=== PATIENT | male | born 1975 | race Caucasian/White ===

== ENCOUNTER 2018-05-27 15:11 | Outpatient (REF) | payer MEDICAID, SELFPAY ==
[2018-05-27 19:08] LABS: Abs Immature Grans 0.01 k/cumm (0.0-0.09); Absolute Basophil Count 0.04 k/cumm (0.0-0.2); Absolute Lymphocyte Count 0.39 k/cumm (1.2-3.4); Absolute Monocyte Count 0.97 k/cumm (0.11-0.7); Absolute Neutrophil Count 5.62 k/cumm (1.2-6.7); Basophils % 0.6; Eosinophils % 2.8; HCT 44.1 % (40.0-50.0); HGB 14.8 g/dL (13.5-17.5); Immature Grans % 0.1; Lymphocytes % 5.4; Mean Corp. HGB Concentration 33.6 g/dL (32.0-36.0); Mean Corpuscular Volume 86.5 fL (80-95); Monocytes % 13.4; Neutrophils % 77.7; Platelet Count 226 x1000/uL (130-400); RBC Distribution Width 13.8 % (11.8-14.1); White Blood Cell Count 7.23 k/cumm (4.4-10.8)
[2018-05-27 19:27] LABS: ALT 47 U/L (12-78); AST 51 U/L (15-37); Albumin 4.3 g/dL (3.4-5.0); Alkaline Phosphatase 124 U/L (46-116); Anion Gap 10.2 mmol/L (3-11); BUN 9 mg/dL (7-18); Bilirubin, Total 0.4 mg/dL (0.2-1.0); C-Reactive Protein 3.51 mg/dL (0.0-0.3); CO2 28.8 mmol/L (21.0-32.0); CREATININE 0.79 mg/dL (0.70-1.30); Calcium 9.4 mg/dL (8.5-10.1); Chloride 100 mmol/L (98-107); Glucose 96 mg/dL (70-100); Potassium 4.9 mmol/L (3.5-5.1); Sodium 139 mmol/L (136-145); TSH (W/Ref FT4) 0.92 uIU/mL (0.358-3.74); Total Protein 7.7 g/dL (6.4-8.2)
[2018-05-27 19:50] LABS: ESR 22 MM/HR (0-15)
[2018-05-30 11:45] LABS: Rheumatoid Factor <8 IU/mL (<12.5)
[2018-05-30 12:23] LABS: Lyme Ab w Rflx to Lyme Confirm Negative
[2018-05-31 00:03] LABS: Anaplasma phagocytophilum Negative (Negative); B. miyamotoi PCR Negative (Negative); Babesia divergens/MO-1 Negative (Negative); Babesia duncani Negative (Negative); Babesia microti Negative (Negative); Ehrlichia chaffeensis Negative (Negative); Ehrlichia ewingii/canis Negative (Negative); Ehrlichia muris eauclairensis Negative (Negative)
== END 2018-05-27 15:31 ==
LOC: NCHCN 15:11
PROVIDERS: PCP Family Medicine; Visit Provider Family Medicine
DX: R20.0 Anesthesia of skin (principal); R19.7 Diarrhea, unspecified; R50.9 Fever, unspecified; M25.50 Pain in unspecified joint; R20.2 Paresthesia of skin
CPT/HCPCS: 80053; 85652; 84443; 85025; 86140; 86431; 86618; 87798

== ENCOUNTER 2018-06-16 10:00 | Outpatient (CLI) | payer MEDICAID, SELFPAY ==
--- NOTE | 2018-06-16 09:45 | DI.RAD_ITS ---
SYMPTOMS/DIAGNOSIS: F/U INTEROSSEOUS GANGLION CYST IN TIBIA RIGHT KNEE: The study is compared with the prior exam of 01/19/18. A TKR is demonstrated. The prosthesis in excellent position. Again noted is the radiolucency identified in the lateral tibial plateau. There is no evidence bony expansion, destruction or periosteal new bone, and there has been no appreciable interval change.
== END 2018-06-16 10:20 ==
PROVIDERS: PCP Family Medicine; Visit Provider Physician Assistant
DX: M67.48 Ganglion, other site (principal); Z96.651 Presence of right artificial knee joint
CPT/HCPCS: 73562

== ENCOUNTER 2018-06-24 12:03 | Outpatient (CLI) | payer MEDICAID, SELFPAY ==
--- NOTE | 2018-06-24 12:27 | HPE_ITS ---
Assessment and Plan (1) Intraosseous ganglion: Current visit: Yes Status: Acute Plan: Discussed surgery including surgical technique, pertinent anatomy, recovery process, benefits and risks including but not limited to risk of infection, blood clot, damage to soft tissue/nerves/blood vessels with patient in detail. After discussion patient elects to continue to proceed with surgery. Patient had opportunity to have questions answered to his satisfaction. Patient will continue with his preoperative visits. He will contact office if any issues arise. Patient will be scheduled for excision of intraosseous ganglion cyst from the right proximal tibia followed by filling of the defect with Elsiian with Dr. Zepeda on 06/29/18. History of Present Illness Narrative: Mr. Pedraza is a 42-year-old male who presents to clinic for his preoperative visit for scheduled intraosseous ganglion cyst removal on right proximal tibia and insertion of Norian by Dr. Zepeda on 06/29/18. Patient has been having right sided knee pain for several months. Patient is status post right TKA done on 10/17/12, following the right TKA patient developed a cyst beneath the lateral aspect of his proximal tibial component in the summer 2017. Patient was diagnosed with intraosseous ganglion cyst of the lateral proximal tibial metaphysis on 01/19/[address] Zepeda. Patient had approximately 20 cc of typical ganglion fluid removed at that appointment. An MRI showed intraosseous cyst located in the proximal tibia beneath the lateral side of the tibial prosthetic. After cyst was drained by Dr. Zepeda patient redeveloped swelling and pain in the same area. Patient describes pain as being intermittent but is worse at night. He also feels discomfort over the area of the cyst with increased activity. 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 Patient takes Tylenol PM which helps to slightly alleviate nighttime pain. Patient denies any tingling. Patient denies any injury. Patient and Dr. Zepeda agreed to proceed with surgical intervention at this time for patient developed any collapse of the tibia or loosening of the TKA. Pertinent Surgical Information Denies past medical history of: stroke, cardiac issues, angina, COPD, sleep apnea, renal issues, liver issues, hepatitis, ulcers, bleeding disorders, seizures, migraines, depression, diabetes, autoimmune disorders, thyroid issues Denies prior complications from surgery or anesthesia. Review of Systems Constitutional Denies fever(s), Denies frequent falls and Denies headache(s) Eyes Denies change in vision ENT Denies otalgia, Denies headache(s), Denies epistaxis, Denies mouth pain, Denies nasal congestion, Reports nasal discharge (Chronic nasal discharge of clear fluid; denies any recent change) and Denies sore throat Cardiovascular Denies chest pain, Denies rapid heart rate, Denies irregular heart rhythm, Denies dyspnea, Denies dyspnea on exertion and Denies slow heart rate Respiratory Denies dyspnea, Denies dyspnea on exertion and Denies wheezing Gastrointestinal Denies abdominal pain, Denies melena, Denies hematochezia, Denies constipation, Denies diarrhea, Denies nausea and Denies vomiting Genitourinary Denies hematuria, Denies dysuria and Denies urinary urgency Musculoskeletal Reports as per HPI and Denies tingling Neurologic Denies frequent falls, Denies headache(s) and Denies tingling Psychiatric Reports anxiety and Denies depression Allergic/Immunologic Denies wheezing PFSH Family History Mother No problems noted. Father Tremor Anxiety Paternal Aunt Lung cancer Medical History Anxiety (Chronic) Intraosseous ganglion (Acute) SPIINAL STENOSIS CERVICAL REGION Asthma Gastroesophageal reflux disease Benign hypertension HYPERLIPIDEMIA HX TOBACCO USE DIVERTICULOSIS OF COLON Social History Smoking/Tobacco Use Status: Current every day Surgical History Replacement of total knee joint (10/18/11) Arthroplasty of knee Meds Home Medications Medication Instructions Recorded Confirmed Type clonidine HCl [Catapres] 0.1 mg PO HS 10/10/12 06/16/18 History losartan [Cozaar] 100 mg PO DAILY AM 10/10/12 06/16/18 History omeprazole 20 mg PO DAILY 10/10/12 06/16/18 History citalopram 40 mg PO DAILY 04/29/13 06/16/18 History clonazepam 0.5 mg PO BID PRN 05/03/13 06/16/18 History fluticasone [Flonase] 50 mcg NS DAILY spray 10/23/14 06/16/18 History levalbuterol tartrate [Xopenex Hfa] 90 mcg INHALATION Q6H PRN inhaler 10/23/14 06/16/18 History loratadine [Claritin] 10 mg PO DAILY tab-cap 10/23/14 06/16/18 History Allergies Allergy/AdvReac Type Severity Reaction Status Date / Time gabapentin Allergy Intermediate Psychosis Verified 06/24/18 12:53 lisinopril AdvReac Mild Cough Verified 06/24/18 12:53 Exam Const General: cooperative and no acute distress [facility] Head: normal to inspection, normocephalic and atraumatic Ears: external ears normal General nose exam: external nose normal and no nasal discharge Face and sinus: face symmetric Mouth: oral mucosae normal, lip normal, tongue normal and moist mucous membranes Teeth and gingiva: other (No upper teeth, bottom teeth have fair dentition ) Throat: posterior oropharynx normal Eyes General: appearance normal, both eyes and all related structures Pupils: PERRL EOM: EOM intact bilaterally Neck Neck: trachea midline Carotids: normal carotid upstroke Lymphatic: no lymphadenopathy noted Resp Effort & Inspection: normal respiratory effort and able to speak in complete sentences Auscultation: clear to auscultation bilaterally, no rales, no rhonchi and no wheezes Cardio Heart Sounds: S1 normal, S2 normal, no murmurs, no rubs and no other Pulses: radial pulses present bilaterally GI Palpation: soft, no hepatosplenomegaly and nontender Auscultation: normal bowel sounds Skin General skin exam: no rashes or lesions noted Extrem Other: Right knee examination: Skin is intact, well-healed surgical incisions present. No signs of ecchymosis, erythema or calor. Area of localized swelling at the anterior lateral aspect of his proximal tibia, area is noted to be approximately 5 cm x 3 cm. Slight tenderness is elicited with palpation over this area.
== END 2018-06-24 12:23 ==
PROVIDERS: PCP Family Medicine; Visit Provider Orthopaedic Surgery
DX: M67.462 Ganglion, left knee (principal); Z01.818 Encounter for other preprocedural examination
CPT/HCPCS: NC

== ENCOUNTER 2018-06-29 11:17 | Day surgery (SDC) | payer MEDICAID, SELFPAY ==
[2018-06-29 11:46] VITALS: BP 145/94; PULSE 82; RESP 16; TEMP 36.2; O2SAT 98
[2018-06-29] MEDS: Lactated Ringers 1,000 ML 80 ML IV (12:05)
--- NOTE | 2018-06-29 13:45 | GANGLION_PTH ---
PATIENT: Satish Pedraza LOC: [facility] U#:[id number] AGE/SX: 42/M ROOM: RE06/29/[address]: Yogesh Zepeda MD : [id number] BED: DIS: 06/29/2018 SPEC #: [id number] RECD: 06/29/18 16:26 STATUS: VENECIA REQ #: [id number] NICKY: 06/29/18 13:[address]: Yogesh Zepeda DEPT: Surgical Specimen RECD BY: Maranda Brand ENTERED: 06/29/18 16:28 SP TYPE: Ganglion OTHR DR: Rachel Montenegro V Tissues: 1 - GANGLION CYST Procedures: GROSS AND MICRO LEVEL 3 Comments: [id number]
--- NOTE | 2018-06-29 14:26 | DI.RAD_ITS ---
SYMPTOMS/DIAGNOSIS: INTRAOSSEOUS GANGLION RT TIBIA C-ARM FLUOROSCOPY: Fluoroscopy Time: 18 sec 1.08 mGy C-arm fluoroscopy was utilized by Dr. Zepeda. The patient reportedly has an intraosseous ganglion of the tibia. Hardcopy shows exposure of the area of the lateral tibial plateau and question with increased radiodensity presumably representing packing material at the operative site.
--- NOTE | 2018-06-29 14:45 | W.PM.DSUDISC ---
Discharge Plan Disposition Patient Disposition: HOME Condition: Good Discharge Details Reason For Visit: GANGLION CYST (R) Attending Provider: Yogesh Zepeda Primary Care Provider: Rachel Montenegro V Home Meds and New Rx's Prescriptions: New hydrocodone-acetaminophen 5-325 mg tablet 1 tab PO Q6H PRN (Reason: pain) Qty: 14 RF: 0 ibuprofen 800 mg tablet 800 mg PO TID Qty: 30 RF: 0 Continue loratadine [Claritin RediTabs] 10 MG tablet,disintegrating 10 mg PO DAILY PRNRF: 0 fluticasone [Flonase] 16 GM spray,suspension 50 mcg NS DAILY PRNRF: 0 levalbuterol tartrate [Xopenex HFA] 15 GM HFA aerosol inhaler 90 mcg Inhalation Q6H PRN RF: 0 clonidine HCl [Catapres] 0.1 MG tablet 0.1 mg PO HS RF: 0 losartan [Cozaar] 100 MG tablet 100 mg PO DAILY AM RF: 0 omeprazole 20 MG tablet,delayed release (DR/EC) 20 mg PO HS RF: 0 citalopram 40 MG tablet 40 mg PO HS RF: 0 clonazepam 0.5 MG tablet 0.5 mg PO BID PRNRF: 0 diphenhydramine-acetaminophen [Tylenol PM Extra Strength] 25-500 mg Tablet 2 PRNRF: 0 Discharge Instructions Additional Instructions: Crutches to walk. Partial weight bearing as tolerated to R leg. Elevate R leg on 1-2 pillows as much as possible for next 48 hours. Empty drain when full. Keep dressings and drain untouched until Wednesday. Go to 's office on Wednesday at 10 AM so he can remove the drain and check your incision. Apply ice over incision site 4 times/day for 1 hour each time. Take ibuprofen as prescribed 3 times/day for 10 days. Take hydrocodone only for breakthru pain, every 6 hours if needed. Equipment/Supplies: Partial Weight Bearing Crutches Activity:: Activity as Tolerated Remove Dressings/Wound Care:: Do Not Remove Shower/Bathe:: Cover Diet:: As Tolerated Discharge Orders Discharge Orders: Discharge Order (Routine); Ordered 06/29/18 Ordered By: Yogesh Zepeda DS: Diagnosis Discharge Diagnosis (1) Intraosseous ganglion: Start date: 06/29/18 Start time: 14:46 Status: Acute
[2018-06-29 14:56] VITALS: BP 148/118; PULSE 97; RESP 15; TEMP 36.7; O2SAT 94
[2018-06-29 15:01] VITALS: BP 155/108; PULSE 98; RESP 14; TEMP 36.7; O2SAT 94
[2018-06-29 15:06] VITALS: BP 133/93; PULSE 104; RESP 14; TEMP 36.7; O2SAT 94
[2018-06-29 15:22] VITALS: BP 130/88; PULSE 96; RESP 14; TEMP 36.7; O2SAT 94
[2018-06-29 15:55] VITALS: BP 139/100; PULSE 96; RESP 18; TEMP 36.6; O2SAT 95
[2018-06-29] MEDS: HYDROcodone 5/Acetaminophen 325 TAB PO (15:55)
--- NOTE | 2018-06-29 19:47 | ROE_ITS ---
DATE OF PROCEDURE: June 29, 2018 PREOPERATIVE DIAGNOSIS: Intraosseous ganglion cyst right tibia with extraosseous extension. POSTOPERATIVE DIAGNOSIS: Same. PROCEDURE: Excision of intraosseous ganglion cyst right tibia, filling the void in the bone with Nor melissa calcium phosphate bone substitute. SURGEON: Yogesh Zepeda M.D. SENIOR MARKET RESEARCH ANALYST: Evelina Linares PA-C ANESTHESIA: General. INDICATIONS: This is a 42-year-old white male, five years status post right total knee replacement. He was seen last spring and was noted to have developed a swelling in his anterior compartment of th e right proximal leg. Aspiration showed contents that looked like typical ganglion fluid. X-rays of his knee showed that, in fact, he had an intraosseous ganglion cyst that was in the lateral portion of the lateral tibial plateau. It was below the tibial component of the total knee replacement. The re did not appear to be any loosening or movement displacement of the tibial component. The patient had been advised at that time that he should have the intraosseous ganglion cyst removed and the resu ltant void in the bone filled with either bone graft or a bone graft substitute such as Norian. The patient was working through the summer and did not come back initially because the extraosseous porti on of the cyst did not recur and he had no pain. Several weeks ago he returned for follow-up because the extraosseous portion of the ganglion cyst had recurred and was now giving him pain. Once again, it was explained to him that after the intraosseous ganglion cyst was excised there would be a void beneath the lateral portion of his tibial component of a total knee replacement. This void needs to be filled to avoid future loosening of the tibial component. I did not feel that methylmethacrylate was a good choice for the void filler and his choices would be limited to either iliac crest bone gra fting or use of a bone graft substitute such as Norian calcium phosphate. Bone grafting would requir e a separate incision and harvesting bone from a remote site to fill in the defect. The patient did not want this and instead wished to have Norian injected to fill the void after the cyst was excised. The risks and complications of the procedure were explained to the patient in detail preoperatively . PROCEDURE: The patient was taken to the Operating Room on 06/29/18. He was placed supine on the ope rating table and a general anesthetic was administered. A proximal tourniquet was applied to the rig ht thigh and the right lower extremity was prepped from toes to tourniquet and draped free in the usu al sterile fashion. Under proximal tourniquet control, I made a separate straight lateral incision. There was a more than adequate skin bridge between his total knee scar and the new incision. The in cision was carried out to the flare of the tibial plateau laterally and then extended distally approx imately 5 inches. The incision was carried down through the subcu and then to the fascia. The fasci a was incised, revealing a quite extensive extraosseous ganglion cyst. It extended actually another inch distal to my incision. I tried to carefully dissect the sac of the ganglion cyst, freed it from the muscle of the anterolateral compartment, and traced it down to the lateral side of the tibial sh aft. The sac of the cyst was punctured in several places during the excision but after the ganglion fluid was removed, the sac was easily visualized and I was able to remove it with use of rongeur. After the extraosseous portion was excised, I was able to trace the ganglion cyst to the proximal lat eral tibia. There were two holes in the bone where the cyst had extruded. I inserted a curette thro ugh the holes and with the C-arm image intensifier I was able to confirm that the curette was, in fac t, in the bone and in the cyst. I then proceeded to use various curettes including angled curettes t o remove tissue from the lining of the cyst from its intraosseous position. I then irrigated the voi d in the bone with Betadine and saline solution. I then took 70% isopropyl alcohol, injected it into the void in the bone cyst, let it stay for 30 seconds, and then suctioned it out and irrigated it ag ain with saline solution to avoid damaging normal tissue. I then mixed Norian calcium phosphate bone void filler and injected it slowly into the void in the lateral proximal tibia. This was done with C-arm image intensification visualization and I could see the calcium phosphate filling the void. Af ter I had filled the void in the bone fairly completely, I took the Norian and put the remainder of t he Norian on a sponge, allowed it to firm up and harden so it was more like putty, and then used this to further pressurize the liquid Norian that was injected into the bone void. At this point, the wound margins were infiltrated with 0.5% Marcaine with epinephrine solution. A si lastic suction drain was placed in the depths of the wound and brought out through a separate stab wo und in the distal lateral leg. The fascia was closed with running interlocked #1 Vicryl suture mater ial. One gram of vancomycin powder was placed in the depth of the wound prior to closing the fascia. The subcu was approximated with interrupted #3-0 Vicryl sutures and the skin edges were approximate d with skin eun. Sterile dressings were applied of Xeroform gauze, sterile gauze 4x4s, ABD pads, and then wrapped with a 6-inch Darien bandage. The drain was connected to a small suction bulb. The t ourniquet was released. The patient tolerated the procedure well and was discharged to Recovery in g ood condition. The patient was later discharged home from the Day Surgery Unit when fully recovered from his general anesthesia. He and family were instructed by the Day Surgery staff on how to empty the suction bulb . He is to empty the bulb whenever it is full. He is to keep his dressings intact and dry until Sat ur. He is to return to Dr. Zepeda's office on Wednesday at 10:00 a.m. for drain removal and wound check. He is advised to use crutches to walk, partial weightbearing as tolerated to the right leg. He is instructed to try to elevate his right leg on one to two pillows as much as possible for the ne xt 48 hours. He was given a prescription for inflammation and swelling of ibuprofen 800 mg p.o. t.i. d. He was given a prescription for breakthrough pain of Percocet 5 mg/325 mg, 1 tablet every 6 hours as needed.
== END 2018-06-29 16:48 | disposition home or self-care (01) ==
PROVIDERS: PCP Family Medicine; Visit Provider Orthopaedic Surgery
PROC: (CPT 27638; principal; 2018-06-29 14:00)
DX: M67.461 Ganglion, right knee (principal); Z96.651 Presence of right artificial knee joint
CPT/HCPCS: 27638; 73590; 88304; E0114; J0131; J0690; J1100; J1885; J2250; J2405; J3010

== ENCOUNTER 2018-07-12 10:52 | Outpatient (CLI) | payer SELFPAY ==
--- NOTE | 2018-07-12 10:48 | DI.RAD_ITS ---
SYMPTOM/DIAGNOSIS: SURGERY FOLLOW UP RIGHT KNEE: Two views. Comparison 06/16/18 There are again seen post surgical changes of a right total knee replacement. No evidence of hardware failure seen. There is again seen a ganglion cystic lesion in the proximal tibia. Post surgical changes of packing of the ganglion cyst are again noted. There is some dense material seen in the space between the proximal tibia and fibula which may represent the packing material. No acute fracture or dislocation seen.
== END 2018-07-12 11:12 ==
PROVIDERS: PCP Family Medicine; Visit Provider Physician Assistant Surgical
DX: M67.48 Ganglion, other site (principal); Z98.890 Other specified postprocedural states; Z96.651 Presence of right artificial knee joint
CPT/HCPCS: 73560

== ENCOUNTER 2018-11-01 10:53 | Outpatient (CLI) | payer SELFPAY ==
--- NOTE | 2018-11-01 10:47 | DI.RAD_ITS ---
SYMPTOMS/DIAGNOSIS: F/U RT TIBIA PAIN RIGHT KNEE: Two views were obtained and show previously noted total knee joint replacement in position. No change in alignment in comparison with examination of 07/12/18. Note is made of cement packing of previously noted lucent region of the lateral tibial plateau with no change in alignment in comparison with the previous examination.
== END 2018-11-01 11:13 ==
PROVIDERS: PCP Family Medicine; Visit Provider Physician Assistant
DX: M79.661 Pain in right lower leg (principal); M25.561 Pain in right knee; Z96.651 Presence of right artificial knee joint
CPT/HCPCS: 73560

== ENCOUNTER 2019-02-08 11:21 | Outpatient (CLI) | payer OTHER, SELFPAY ==
--- NOTE | 2019-02-08 08:53 | DI.RAD_ITS ---
SYMPTOM/DIAGNOSIS: S/P INTRAOSSEOUS GANGLION CYST REMOVAL RIGHT KNEE: The patient is status post TKA. When compared with the prior examination of 11/01/18, there has been no interval change. The prosthesis remains in good position. Surrounding bone intact with note again made of packing at the site of an intraosseous ganglion involving the lateral portion of the proximal metaphysis of the tibia. No interval change is demonstrated.
== END 2019-02-08 11:41 ==
PROVIDERS: PCP Family Medicine; Visit Provider Physician Assistant
DX: M25.561 Pain in right knee (principal); Z96.651 Presence of right artificial knee joint; M67.48 Ganglion, other site
CPT/HCPCS: 73560

== ENCOUNTER 2019-02-20 13:48 | Emergency (ER) | payer SELFPAY ==
[2019-02-20 13:53] VITALS: BP 149/88; PULSE 86; RESP 14; TEMP 37.2; O2SAT 99
--- NOTE | 2019-02-20 14:03 | ED.GENADUL_ITS ---
Discharge Plan Disposition Patient Disposition: HOME Condition: Good Discharge Details Chief Complaint: RashLesion Clinical Impression: 1st degree sunburn Primary Care Provider: Rachle Montenegro V ED Provider: Jack Osullivan Home Meds and New Rx's Prescriptions: New acetaminophen [Mapap Extra Strength] 500 MG tablet 1,000 mg PO Q6H 5 Days Qty: 60 RF: 0 diphenhydramine HCl [Benadryl] 25 MG capsule 25 mg PO Q6H Qty: 100 RF: 0 ibuprofen [Motrin IB] 200 MG tablet 600 mg PO Q6H 5 Days Qty: 60 RF: 0 No Action fluticasone propionate [Flonase] 16 GM spray,suspension 50 mcg NS DAILY PRNRF: 0 levalbuterol tartrate [Xopenex HFA] 15 GM HFA aerosol inhaler 90 mcg Inhalation Q6H PRN RF: 0 loratadine [Claritin RediTabs] 10 mg tablet,disintegrating 10 mg PO DAILY PRNRF: 0 clonidine HCl [Catapres] 0.1 MG tablet 0.1 mg PO HS RF: 0 losartan [Cozaar] 100 MG tablet 100 mg PO DAILY AM RF: 0 omeprazole 20 MG tablet,delayed release (DR/EC) 20 mg PO HS RF: 0 citalopram 40 MG tablet 40 mg PO HS RF: 0 clonazepam 0.5 MG tablet 0.5 mg PO BID PRNRF: 0 diphenhydramine-acetaminophen [Tylenol PM Extra Strength] 25-500 mg Tablet 2 PRNRF: 0 ibuprofen 800 mg tablet 800 mg PO TID Qty: 30 RF: 0 Discharge Instructions Instructions: Superficial Burn (ED) Additional Instructions: You have sunburn on your feet. Please continue the medication as we discussed. Please use Benadryl as directed, 600 mg of ibuprofen every 6 hours, 1000 mg of Tylenol every 6 hours, continue to apply the aloevera, and continue the cold soaks. If you notice spreading of the redness, fever, please return immediately. If you notice any worsening of your symptoms, or any new symptoms such as vomiting, diarrhea, fever, chills, shortness of breath, chest pain, numbness, weakness, or fainting , please return immediately to the emergency department for reevaluation. Please follow up with your primary care provider as soon as possible for reassessment and reevaluation. As always, it was a pleasure participating in your medical care today. Stand Alone Forms: Work Release Referrals: Rachel Montenegro MD [Primary Care Provider] - Discharge Data Discharge Date/Time-TO BE ENTERED AT DEPARTURE: 02/20/19 14:13 Medical Decision Making This is a pleasant 43-year-old male who presents for evaluation of sunburn on the top of his feet bilaterally. Physical exam demonstrates first-degree sunburn feet bilaterally, no evidence of cellulitis, toxic sun exposure, or other significant abnormality. Recommend that the patient continue Benadryl, Tylenol, ibuprofen, cold soaks and elevate. We will give a work note for the next 2 to 3 days secondary to the sensitivity on his feet. I have extensively reviewed the treatment plan and discharge instructions with the patient. I have addressed all patient concerns at this time. The patient was made aware of what symptoms to monitor for that would warrant a return to the emergency department. Discussed the plan with the patient, they demonstrate verbal understanding and agreement with our assessment and plan at this time. HPI General Date/Time Provider Initiated Documentation: 02/20/19 13:56 . HPI Narrative: This is a 43-year-old male who presents for sunburn on his feet. He states that 2 days ago he went out paddle boarding, for 9 hours, and had no sunscreen on. He has notable pain on the top of his feet, he has been using occasional Tylenol, Motrin and Benadryl and cold soaks. Symptoms have not been worsening, but they have also not been significantly improving. He presents today for further evaluation. Pain is made worse with wearing shoes and socks. Improved by the aforementioned remedies that he has been trying. He denies any red flags of spreading of the redness, fever, chills, chest pain shortness of breath, numbness tingling or weakness. Related Data Home Medications Medication Instructions Recorded Confirmed clonidine HCl [Catapres] 0.1 mg PO HS 10/10/12 02/20/19 losartan [Cozaar] 100 mg PO DAILY AM 10/10/12 02/20/19 omeprazole 20 mg PO HS 10/10/12 02/20/19 citalopram 40 mg PO HS 04/29/13 02/20/19 clonazepam 0.5 mg PO BID PRN 05/03/13 02/20/19 fluticasone propionate [Flonase] 50 mcg NS DAILY PRN spray 10/23/14 02/20/19 levalbuterol tartrate [Xopenex HFA] 90 mcg INHALATION Q6H PRN inhaler 10/23/14 02/20/19 diphenhydramine-acetaminophen 2 PRN 06/29/18 02/14/19 [Tylenol PM Extra Strength] ibuprofen 800 mg PO TID #30 tab 06/29/18 02/20/19 loratadine 10 mg disintegrating 10 mg PO DAILY PRN tab-cap 02/08/19 02/20/19 tablet acetaminophen [Mapap Extra 1,000 mg PO Q6H 5 Days #60 tab 02/20/19 Strength] diphenhydramine HCl [Benadryl] 25 mg PO Q6H #100 cap 02/20/19 ibuprofen [Motrin Ib] 600 mg PO Q6H 5 Days #60 tab 02/20/19 Previous Rx's Medication Instructions Recorded ibuprofen 800 mg PO TID #30 tab 06/29/18 acetaminophen [Mapap Extra 1,000 mg PO Q6H 5 Days #60 tab 02/20/19 Strength] diphenhydramine HCl [Benadryl] 25 mg PO Q6H #100 cap 02/20/19 ibuprofen [Motrin Ib] 600 mg PO Q6H 5 Days #60 tab 02/20/19 Allergies Allergy/AdvReac Type Severity Reaction Status Date / Time gabapentin AdvReac Intermediate Psychosis Verified 02/20/19 13:55 lisinopril AdvReac Mild Cough Verified 02/20/19 13:55 General Stated Complaint: RashLesion STACI: 4 Review of Systems Review of Systems All systems reviewed & are unremarkable except as noted in HPI and below PFSH Family History (Updated 06/24/18 @ 12:53 by Leticia Fang) Mother No problems noted. Father Tremor Anxiety Paternal Aunt Lung cancer Social History Smoking/Tobacco Use Status: Current every day Tobacco Type: cigarettes Drug use: Never Do you feel safe at home: Yes Do you feel safe in your relationship?: Yes Exam Narrative Exam Narrative: 1.Const: Well-nourished, Well-developed, appearing stated age 2.Eyes: PERRL, no conjunctival injection, and symmetrical lids. 3.ENT: Atraumatic external nose and ears. Moist MM. Neck: Symmetric, trachea midline, No thyromegaly. 4.CVS: +S1/S2, No murmurs or gallops. Peripheral pulses 2+ and equal in all extremities. Brisk capillary refill in all extremities. 5.RESP: Unlabored respiratory effort. Clear to auscultation bilaterally. No wheezes rales or rhonchi 6.GI: Soft, Nontender/Nondistended, No hepatosplenomegaly. No guarding or rebound. 7.MSK: Normocephalic/Atraumatic, Extremities w/o deformity or ttp No cyanosis or clubbing, Normal movement of all extremities 8.Skin: Warm, Dry. Notable first-degree sunburn on the dorsal aspect of the patient's feet bilaterally. Capillary refill is brisk, sensation is intact. Notable tenderness on palpation of the sunburn. No evidence of spreading redness or signs of cellulitis. No blisters, vesicles or bulla. No sloughing of the skin. No evidence of second or third-degree burn. 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 Sensation grossly intact, no focal neurologic deficits. 10.Psych: (AAO) x3. Appropriate mood and affect Course Vital Signs Temperature 37.2 C 02/20/19 13:53 Pulse 86 02/20/19 13:53 Respiratory Rate 14 02/20/19 13:53 Blood Pressure 149/88 H 02/20/19 13:53 Pulse Oximetry 99 02/20/19 13:53 Temperature 37.2 C 02/20/19 13:53 Temperature Source Temporal Artery Scan 02/20/19 13:53 Pulse 86 02/20/19 13:53 Respiratory Rate 14 02/20/19 13:53 Respiratory Effort Non-Labored 02/20/19 13:54 Blood Pressure 149/88 H 02/20/19 13:53 Blood Pressure Position Sitting 02/20/19 13:53 Pulse Oximetry 99 02/20/19 13:53 Oxygen Delivery Method Room Air 02/20/19 13:53 Oxygen Flow Rate 0 02/20/19 13:53 Pain Level 10 02/20/19 13:53
== END 2019-02-20 14:13 | disposition home or self-care (01) ==
LOC: ER 14:08
PROVIDERS: Emergency Provider Student in an Organized Health Care Education/Training Program; PCP Family Medicine
DX: L55.0 Sunburn of first degree (principal)
CPT/HCPCS: 99282

== ENCOUNTER 2019-03-22 09:51 | Outpatient (CLI) | payer OTHER, SELFPAY ==
--- NOTE | 2019-03-22 09:02 | DI.RAD_ITS ---
SYMPTOMS/DIAGNOSIS: F/U OF INTRAOSSEOUS GANGLION RIGHT KNEE: Comparison is made with [id number]. AP and lateral weight bearing views were performed. There has been no change in the appearance of the femoral and tibial components of the prosthesis. Packing material within a cystic area is again noted at the lateral tibial plateau. No new abnormalities are seen.
== END 2019-03-22 10:11 ==
PROVIDERS: PCP Family Medicine; Visit Provider Physician Assistant
DX: M67.49 Ganglion, multiple sites (principal)
CPT/HCPCS: 73560

== ENCOUNTER 2019-04-25 13:45 | Outpatient (CLI) | payer OTHER, SELFPAY ==
--- NOTE | 2019-04-25 14:42 | W.PREOPHP ---
Date of service: 04/25/19 Assessment and Plan Assessment and plan (1) Intraosseous ganglion: Status: Acute Assessment and plan: Interosseous ganglion cyst excision with iliac crest bone graft. Details of surgery were discussed with patient as well as risks and pertinent anatomy. All questions were answered. History of Present Illness History of Present Illness Chief Complaint: Right knee pain Narrative: Satish is a 43-year-old male who comes in today for preop visit for a right cyst in his right tibia. This is been previously debrided and a bone substitute was placed in the cavity, but since then the cyst has returned. He has excruciating pain in his right knee, and it is worse with weightbearing. He has been followed by Dr. Zepead since the original surgery, and since the cyst does appear to be coming back, Dr. Zepeda does suggest another debridement of the ganglion cyst in his right tibia with iliac crest bone graft in order to try to give its best chance to heal. He does agree with this plan, and is anxious to proceed. Pertinent Surgical Information Satish just had a similar procedure here on 06/29/2018 and had no complications. Patient denies history of hypertension, CVA, SD, angina, asthma, COPD, renal or liver disorders, hepatitis, bleeding disorders, diabetes, immune or thyroid disorders. No complications from anesthesia. Review of Systems Constitutional Constitutional: Denies fever(s) ENT Ears, Nose, Mouth, and Throat: Denies dizziness and Denies sore throat Cardiovascular Cardiovascular: Denies chest pain, Denies palpitations and Denies dyspnea Respiratory Respiratory: Denies cough and Denies dyspnea Gastrointestinal Gastrointestinal: Denies abdominal pain, Denies melena, Denies hematochezia, Denies diarrhea, Denies nausea and Denies vomiting Genitourinary Genitourinary: Denies hematuria and Denies dysuria Neurologic Neurologic: Denies dizziness Endocrine Endocrine: Denies palpitations [facility] Medical History Anxiety (Chronic) Asthma Tobacco user Benign hypertension DIVERTICULOSIS OF COLON Gastroesophageal reflux disease HX TOBACCO USE HYPERLIPIDEMIA SPIINAL STENOSIS CERVICAL REGION Surgical History H/O arthroscopy of right knee (Acute) right knee w/ partial meniscectomy in 2007 by CDDx2. 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 Father Tremor Anxiety Paternal Aunt Lung cancer Social History Smoking/Tobacco Use Status: Current every day Tobacco Type: cigarettes Alcohol Intake: never Drug use: Never Substance use type: does not use Do you feel safe at home: Yes Do you feel safe in your relationship?: Yes Meds Home Medications and Allergies Home Medications Medication Instructions Recorded Confirmed Type clonidine HCl [Catapres] 0.1 mg PO HS 10/10/12 04/25/19 History omeprazole 20 mg PO HS 10/10/12 04/25/19 History citalopram 40 mg PO HS 04/29/13 04/25/19 History clonazepam 0.5 mg PO BID PRN 05/03/13 04/25/19 History fluticasone propionate [Flonase] 50 mcg NS DAILY PRN spray 10/23/14 04/25/19 History levalbuterol tartrate [Xopenex HFA] 90 mcg INHALATION Q6H PRN inhaler 10/23/14 04/25/19 History diphenhydramine-acetaminophen 2 tab PO HS 06/29/18 04/25/19 History [Tylenol PM Extra Strength] ibuprofen 800 mg PO TID #30 tab 06/29/18 04/25/19 Rx loratadine 10 mg disintegrating 10 mg PO DAILY PRN tab-cap 02/08/19 04/25/19 History tablet diphenhydramine HCl [Benadryl] 25 mg PO Q6H #100 cap 02/20/19 04/25/19 Rx tizanidine 4 mg capsule 4 mg PO TID PRN #30 cap 04/05/19 04/25/19 Rx Allergies Allergy/AdvReac Type Severity Reaction Status Date / Time gabapentin AdvReac Intermediate Psychosis Verified 04/25/19 14:00 lisinopril AdvReac Mild Cough Verified 04/25/19 14:00 Exam [facility] Head: normocephalic and atraumatic General nose exam: no nasal discharge Throat: uvula midline and no uvular edema Eyes Conjunctivae: conjunctivae normal Sclera: sclerae normal Resp Effort & Inspection: normal respiratory effort Auscultation: clear to auscultation bilaterally and no wheezes Cardio Rate: regular rate Rhythm: regular rhythm Heart Sounds: S1 normal, S2 normal and no murmurs GI Palpation: soft, no hepatosplenomegaly and nontender Auscultation: normal bowel sounds
== END 2019-04-25 14:05 ==
PROVIDERS: PCP Family Medicine; Visit Provider Orthopaedic Surgery
DX: M67.49 Ganglion, multiple sites (principal); Z01.818 Encounter for other preprocedural examination
CPT/HCPCS: NC

== ENCOUNTER 2019-04-28 09:43 | Emergency (ER) | payer SELFPAY ==
[2019-04-28] VITALS (8 sets, daily range): BP systolic 109–138; BP diastolic 68–96; PULSE 72–93; RESP 18; TEMP 36.6–36.8; O2SAT 95–99
--- NOTE | 2019-04-28 09:57 | ED.GENADUL_ITS ---
Discharge Plan Disposition Patient Disposition: HOME Condition: Good Discharge Details Chief Complaint: Dizzy/Sync Clinical Impression: Anxiety Primary Care Provider: Rachel Montenegro V ED Provider: Ashlyn Estrada Home Meds and New Rx's Prescriptions: New lorazepam [Ativan] 0.5 mg tablet 0.5 mg PO TID PRN (Reason: anxiety) Qty: 4 RF: 0 Continued fluticasone propionate [Flonase] 16 GM spray,suspension 50 mcg NS DAILY PRNRF: 0 levalbuterol tartrate [Xopenex HFA] 15 GM HFA aerosol inhaler 90 mcg Inhalation Q6H PRN RF: 0 loratadine [Claritin RediTabs] 10 mg tablet,disintegrating 10 mg PO DAILY PRNRF: 0 tizanidine 4 mg capsule 4 mg PO TID PRN (Reason: muscle spasticity) Qty: 30 RF: 1 clonidine HCl [Catapres] 0.1 MG tablet 0.1 mg PO HS RF: 0 omeprazole 20 MG tablet,delayed release (DR/EC) 20 mg PO HS RF: 0 citalopram 40 MG tablet 40 mg PO HS RF: 0 clonazepam 0.5 MG tablet 0.5 mg PO BID PRNRF: 0 diphenhydramine-acetaminophen [Tylenol PM Extra Strength] 25-500 mg Tablet 2 tab PO HS RF: 0 ibuprofen 800 mg tablet 800 mg PO TID Qty: 30 RF: 0 diphenhydramine HCl [Benadryl] 25 MG capsule 25 mg PO Q6H Qty: 100 RF: 0 Discharge Instructions Instructions: Anxiety (ED), Anxiolysis in Adults (ED) Additional Instructions: Encourage hydration. Please try to cut back on caffeine. Try deep breathing techniques and anxiolytic techniques, attached information on anxiolysis. If this is unsuccessful and you begin to have increased anxiety regarding your upcoming surgery, you may use the ativan as prescribed. Take this only as prescribed, keep in a safe place. You may take one tab prior to coming in for your surgery Wednesday. If you develop fevers/chills, chest pain, difficulty breathing or other new/ worsening symptoms please seek care urgently once again. Please follo wup with primary care next week regarding your anxiety. Referrals: Rachel Montenegro MD [Primary Care Provider] - Discharge Data Discharge Date/Time-TO BE ENTERED AT DEPARTURE: 04/28/19 11:52 Medical Decision Making <SABI Metcalf - Last Filed: 04/29/19 07:46> Patient is a 43-year-old male presents today with chief complaint of anxiety. He reports the spinal center around his upcoming surgery. States that he has a history of anxiety and has had multiple panic attacks and feels very much that was experienced today. However, relates that with the onset of symptoms, became concerned regarding his surgeries and further and wanted assurance that he is physically well. States he was experiencing bilateral upper and lower extremity shaking, nausea, fever. Reported dizziness which he further went on to explai n feeling lightheaded. Denies chest pain, palpitations. Was endorsing difficulty breathing but states that this has since subsided. Denies any headache, visual changes. No loss of consciousness or syncope. No recent illness. Denies any cough, cold, fever/chills. On exam, patient appears very anxious. Otherwise, exam is benign. Normal cardiovascular exam. Normal neurologic exam.. Lungs are clear bilaterally. Discussed treatment options with the patient. Plan to give an anxiety lytic, obtain baseline labs and EKG. EKG reviewed by Dr. Osullivan. Please review his note. No evidence of ischemia. Consulted with Dr. Zepeda regarding anxiety lytics and he is in agreement that this would be appropriate preoperatively. Labs reviewed. Patient has leukocytosis with a white count of 14, this is typical for the patient, patient acknowledges known history of leukocytosis. No electrolyte abnormalities. Troponin is less than 0.05. TSH is normal. Discussed these findings with the patient. He is feeling significantly improved after 0.5 mg of IV Ativan. Will discharge home with Ativan he may use prior to procedure. He was given strict usage instructions. He was instructed not drive while taking this medication. Encourage hydration. Advised that he try to cut back on caffeine as this may also be increasing his anxiety symptoms. He was given strict return precautions. All his questions and concerns were addressed and he is in agreement this plan. <Jack Osullivan DO - Last Filed: 04/28/19 10:25> EKG 9: 59 Rate 85, intervals normal, sinus rhythm, no significant ST elevations or depressions, T wave inversion is present in V1, RSR prime in V1 and V2, no significant ST elevations or depressions evidence of STEMI, no Q waves. Prior EKG from 2012 demonstrates identical findings. No other acute changes. HPI <SABI Metcalf - Last Filed: 04/29/19 07:46> General Mode of arrival: ambulatory . Date/Time Provider Initiated Documentation: 04/28/19 09:56 . Limitations to Documentation: no limitations . Information obtained by: patient, family (significant other) and RN notes reviewed . HPI Narrative: Patient is a 43-year-old male with history of anxiety, intraosseous ganglion cyst, total knee replacement, asthma, GERD, hypertension, hyperlipidemia, tobacco abuse. He is presenting today, accompanied by significant other, with chief complaint of anxiety. He reports that he has surgery in 3 days time for his intraosseous ganglion cyst. States that he was watching videos and how was performed became very anxious. Since this morning, while sitting in drinking his coffee, he was thinking heavily about the surgery when suddenly he became dizzy and reported having difficulty breathing. States he is breathing quite quickly and he began feeling shaky my hands and feet. Denies any chest pain. States that he was slightly nauseated. No vomiting. Did not have a syncopal episode. No loss consciousness. States he has had panic attacks in the past but this seems very similar to when he had them previously. Patient continues to feel anxious at this time. Related Data Home Medications Medication Instructions Recorded Confirmed clonidine HCl [Catapres] 0.1 mg PO HS 10/10/12 04/28/19 omeprazole 20 mg PO HS 10/10/12 04/28/19 citalopram 40 mg PO HS 04/29/13 04/28/19 clonazepam 0.5 mg PO BID PRN 05/03/13 04/28/19 fluticasone propionate [Flonase] 50 mcg NS DAILY PRN spray 10/23/14 04/28/19 levalbuterol tartrate [Xopenex HFA] 90 mcg INHALATION Q6H PRN inhaler 10/23/14 04/28/19 diphenhydramine-acetaminophen 2 tab PO HS 06/29/18 04/25/19 [Tylenol PM Extra Strength] ibuprofen 800 mg PO TID #30 tab 06/29/18 04/28/19 loratadine 10 mg disintegrating 10 mg PO DAILY PRN tab-cap 02/08/19 04/28/19 tablet diphenhydramine HCl [Benadryl] 25 mg PO Q6H #100 cap 02/20/19 04/25/19 tizanidine 4 mg capsule 4 mg PO TID PRN #30 cap 04/05/19 04/28/19 lorazepam [Ativan] 0.5 mg PO TID PRN #4 tab 04/28/19 Previous Rx's Medication Instructions Recorded ibuprofen 800 mg PO TID #30 tab 06/29/18 diphenhydramine HCl [Benadryl] 25 mg PO Q6H #100 cap 02/20/19 tizanidine 4 mg capsule 4 mg PO TID PRN #30 cap 04/05/19 lorazepam [Ativan] 0.5 mg PO TID PRN #4 tab 04/28/19 Allergies Allergy/AdvReac Type Severity Reaction Status Date / Time gabapentin AdvReac Intermediate Psychosis Verified 04/28/19 09:59 lisinopril AdvReac Mild Cough Verified 04/28/19 09:59 General STACI: 4 Review of Systems <SABI Metcalf - Last Filed: 04/29/19 07:46> Constitutional Constitutional: Reports as per HPI, Denies chills, Denies fatigue, Denies fever(s), Denies frequent falls, Reports headache(s) (Reports mild left-sided headache, typical for patient), Denies snoring and Denies weakness Eyes Eyes: Reports as per HPI, Denies blurry vision, Denies change in vision and Reports photophobia ENT Ears, Nose, Mouth, and Throat: Denies vertigo, Reports dizziness (Lightheadedness and anxiety head full of thoughts), Reports headache(s) (Reports mild left-sided headache, typical for patient) and Denies neck pain Cardiovascular Cardiovascular: Reports as per HPI, Denies chest pain, Denies lightheadedness, Denies radiating jaw, neck or arm pain, Denies dyspnea and Denies dyspnea on exertion Respiratory Respiratory: Reports as per HPI, Denies chest congestion, Denies cough, Denies dyspnea, Denies dyspnea on exertion, Denies snoring, Denies stridor and Denies wheezing Gastrointestinal Gastrointestinal: Reports as per HPI, Denies abdominal pain, Denies change in bowel habits, Denies nausea and Denies vomiting Genitourinary Genitourinary: Reports system reviewed and no additional complaints, except as docu (denies change in urinary habits) Musculoskeletal Musculoskeletal: Reports as per HPI, Denies back pain, Denies myalgias, Denies muscle cramps, Denies neck pain and Denies numbness Integumentary/Breasts Skin/Breast: Reports as per HPI and Denies rash Neurologic Neurologic: Reports as per HPI, Denies abnormal movements, Denies abnormal speech, Denies behavioral changes, Denies confusion, Denies vertigo, Reports dizziness (Lightheadedness and anxiety head full of thoughts), Denies frequent falls, Reports headache(s) (Reports mild left-sided headache, typical for patient), Denies focal weakness, Denies numbness, Denies sensory deficit, Reports paresthesias (Unusual sensation to hands in feet, since resolved) and Denies weakness Psychiatric Psychiatric: Denies behavioral changes and Denies confusion Endocrine Endocrine: Denies fatigue Allergic/Immunologic Allergic/Immunologic: Denies wheezing PFSH <SABI Metcalf - Last Filed: 04/29/19 07:46> Medical History Anxiety (Chronic) Asthma Tobacco user Benign hypertension DIVERTICULOSIS OF COLON Gastroesophageal reflux disease HX TOBACCO USE HYPERLIPIDEMIA SPIINAL STENOSIS CERVICAL REGION Surgical History H/O arthroscopy of right knee (Acute) right knee w/ partial meniscectomy in 2007 by CDDx2. 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 Noted on x-ray and MRI S/P ganglion cyst excision DOS: 07/02/19 Aspiration of recurrence on anterolateral proximal tibia: 11/01/2018; 02/08/2019 Replacement of total knee joint (10/18/11) RIGHT KNEE Social History Smoking/Tobacco Use Status: Current every day Tobacco Type: cigarettes Alcohol Intake: never Drug use: Never Substance use type: does not use Do you feel safe at home: Yes Do you feel safe in your relationship?: Yes Exam <SABI Metcalf - Last Filed: 04/29/19 07:46> Const General: cooperative, healthy appearing, uncomfortable (appears very anxious), no acute distress, well developed, well groomed and anxious Nutritional Appearance: average body habitus and well nourished Orientation: alert, awake and oriented x3 [facility] Head: normal to inspection, no palpable skull fracture, normocephalic and atraumatic Ears: hearing grossly normal bilaterally, external ears normal and TM's normal bilaterally General nose exam: external nose normal Mouth: oral mucosae normal and moist mucous membranes Throat: posterior oropharynx normal Eyes General: appearance normal, both eyes and all related structures Alignment and Position: alignment normal Periorbital: periorbital findings normal Eyelids: eyelids normal Sclera: sclerae normal Cornea: corneas normal Pupils: PERRL EOM: EOM intact bilaterally Neck Neck: normal visual inspection, full ROM, no lymphadenopathy and no meningeal signs Resp Effort & Inspection: normal respiratory effort, able to speak in complete sentences and no respiratory distress Auscultation: clear to auscultation bilaterally, no rales, no rhonchi and no wheezes Cardio Rate: regular rate Rhythm: regular rhythm Heart Sounds: S1 normal and S2 normal GI Inspection: normal to inspection and non-distended Palpation: soft, no hepatosplenomegaly, not firm, no guarding, not rigid and nontender Percussion: normal to percussion Auscultation: normal bowel sounds Back/Spine/Pelvis Cervical Spine: normal cervical lordosis and cervical ROM normal Skin General skin exam: no rashes or lesions noted Neuro General: alert, awake and oriented x3 Cranial Nerves: CN's II-XI intact bilaterally Cognition: normal cognition Speech: speech normal Gait: normal gait Motor: muscle tone normal throughout, strength 5/5 throughout, no pronator drift, no movement abnormalities noted and no fasciculations Sensory Exam: no sensory deficits noted Coordination: [id number] test normal and [id number] test normal Extrem General: normal to inspection, normal capillary refill, no pedal edema and no calf tenderness Psych Appearance: grossly normal and well kempt Mental Status: mental status grossly normal Speech and Movement: speech and movement normal Affect: anxious affect
[2019-04-28] MEDS: LORazepam 2 MG/ML VIAL 0.5 MG IVP (10:35)
[2019-04-28] MEDS: Normal Saline 1,000 ML 1000 ML IV (10:35)
[2019-04-28 10:49] LABS: Abs Immature Grans 0.05 k/cumm (0.0-0.09); Absolute Basophil Count 0.04 k/cumm (0.0-0.2); Absolute Eosinophil Count 0.36 k/cumm (0.0-0.7); Absolute Lymphocyte Count 1.96 k/cumm (1.2-3.4); Absolute Monocyte Count 1.11 k/cumm (0.11-0.7); Basophils % 0.3; Eosinophils % 2.6; HCT 44.6 % (40.0-50.0); HGB 15.4 g/dL (13.5-17.5); Immature Grans % 0.4; Mean Corp. HGB Concentration 34.5 g/dL (32.0-36.0); Mean Corpuscular Hemoglobin 28.8 pg (27.0-33.0); Mean Corpuscular Volume 83.5 fL (80-95); Mean Platelet Volume 10.6 fL (8.0-11.0); Monocytes % 7.9; Neutrophils % 74.8; Platelet Count 343 x1000/uL (130-400); RBC 5.34 m/cumm (4.50-6.00); RBC Distribution Width 13.5 % (11.8-14.1); White Blood Cell Count 14.03 k/cumm (4.4-10.8)
[2019-04-28 11:00] LABS: Absolute Neutrophil Count 10.49 k/cumm (1.2-6.7)
[2019-04-28 11:19] LABS: ALT 30 U/L (16-63); AST 23 U/L (15-37); Alkaline Phosphatase 118 U/L (46-116); Anion Gap 10.8 mmol/L (3-11); BUN 13 mg/dL (7-18); Bilirubin, Total 0.6 mg/dL (0.2-1.0); CO2 25.2 mmol/L (21.0-32.0); CREATININE 0.97 mg/dL (0.70-1.30); Calcium 9.2 mg/dL (8.5-10.1); Chloride 105 mmol/L (98-107); Glucose 107 mg/dL (70-100); Potassium 4.2 mmol/L (3.5-5.1); Sodium 141 mmol/L (136-145); TSH 1.02 uIU/mL (0.36-3.74); Total Protein 7.7 g/dL (6.4-8.2)
[2019-04-28 11:20] LABS: Troponin I < 0.05 ng/mL (0.00-0.06)
== END 2019-04-28 11:52 | disposition home or self-care (01) ==
PROVIDERS: Emergency Provider Physician Assistant; PCP Family Medicine
DX: F41.9 Anxiety disorder, unspecified (principal); I10 Essential (primary) hypertension
CPT/HCPCS: 36415; 80053; 93005; 96361; 96374; 99284; 83735; 84443; 84484; 85025; 93010; J2060

== ENCOUNTER 2019-05-01 10:03 | Inpatient (IN) | payer MEDICAID, SELFPAY ==
[2019-05-01] VITALS (15 sets, daily range): BP systolic 89–137; BP diastolic 49–88; PULSE 73–84; RESP 12–21; TEMP 36.2–37; O2SAT 93–99
[2019-05-01] MEDS: Lactated Ringers 1,000 ML 80 ML IV (07:08)
[2019-05-01] MEDS: ceFAZolin 2 GM/50 ML BAG IVPB (07:30)
--- NOTE | 2019-05-01 08:15 | GANGLION_PTH ---
PATIENT: Satish Pedraza LOC: U#:[id number] AGE/SX: 43/M ROOM: 205 RE05/01/[address]: Yogesh Zepeda MD : 1975 BED: A DIS: 05/02/2019 SPEC #: [id number] RECD: 05/01/19 11:19 STATUS: VENECIA REQ #: [id number] NICKY: 05/01/19 08:[address]: Yogesh Zepeda DEPT: Surgical Specimen RECD BY: Maranda Brand ENTERED: 05/01/19 11:20 SP TYPE: Ganglion OTHR DR: Rachel Montenegro V Tissues: 1 - GANGLION CYST Procedures: GROSS AND MICRO LEVEL 3 Comments: [id number]
--- NOTE | 2019-05-01 10:52 | DI.RAD_ITS ---
EXAM: XR KNEE RT 2V AP,LAT CLINICAL HISTORY: check bone graft R tibia. TECHNIQUE: 2D digital imaging was performed. COMPARISON: Priors available for comparison. FINDINGS: BONES: No acute fracture is present. No bony destructive lesion is seen. Since the prior examination there has been incorporation of the bone graft material into the proximal tibia. JOINTS: The knee is normally aligned. No joint effusion is seen. The patient has a right total knee p rosthesis which appears in good position. There is no evidence of hardware failure. SOFT TISSUE: Surgical clips are seen in the soft tissues. IMPRESSION: Stable right total knee prosthesis.
[2019-05-01] MEDS: fentaNYL 100 MCG/2 ML VIAL IVP (11:00)
[2019-05-01] MEDS: HYDROcodone 5/Acetaminophen 325 TAB PO ×2 (12:32→19:44)
[2019-05-01] MEDS: oxyCODONE-CR 10 MG TABCR PO (14:36)
[2019-05-01] MEDS: POTASSIUM CHLORIDE/0.9% NACL 1,000 ML 125 MEQ IV ×2 (15:11→22:30)
--- NOTE | 2019-05-01 15:13 | NUR.NOTE ---
Nursing Note: 1322: pt arrives to room 205 via pt bed from DSU. pt alert/oriented. pt vss. pt has patent iv. RLE elevated, ice pack to right hip. pt states pain is 4/10 at this time. pt oriented to call liang/tv remote. continue to monitor.
[2019-05-01] MEDS: Ketorolac 30 MG/ML VIAL IVP ×2 (15:40→21:26)
[2019-05-01] MEDS: Normal Saline Flush 10 ML SYR IV (15:41)
--- NOTE | 2019-05-01 17:00 | PT.INIE ---
Date of service: 05/01/19 Time of Service: 15:43 PT Notes Inpatient Physical Therapy Evaluation Date: 05/01/2019 Referring Doctor: Yogesh Zepeda MD PT Orders: PT CONSULT: S/P Ortho Surgery Precautions: Fall. Standard. WBAT on R LE. Patient Profile/Admitting Diagnosis: Patient is a 43-year-old male who has a diagnosis of an interosseous ganglion cyst S/P Excision and iliac crest bone graft placement on post operative day 1. PMHX: Medical History Anxiety (Chronic) Asthma Tobacco user Benign hypertension DIVERTICULOSIS OF COLON Gastroesophageal reflux disease HX TOBACCO USE HYPERLIPIDEMIA SPIINAL STENOSIS CERVICAL REGION Surgical History H/O arthroscopy of right knee (Acute) right knee w/ partial meniscectomy in 2007 by CDDx2. 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 His bedroom is on the second floor but patient states that he plans on making a makeshift bed or on using his couch on the first floor while he is recovering until he is able to negotiate steps. He is independent with all aspects of ADLs with no AD nor adaptive equipment. 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 Equipment Owned/DME: None Subjective: Patient is agreeable to a PT consult and treatment today. Patient reports discomfort on the R pelvic area where bone graft was harvested and on the R leg with weight-bearing activity. He denies headache, chest pain, and dizziness throughout PT session. Objective: General Observation: Patient is seen resting in bed with Chaidez dressing on R LE. IV on L UE. DAMIEN on L LE. Mental Status: Alert and oriented x 4 as to person, place, time, and purpose Pain: 2/10 at rest. 4/10 with movement and weight bearing ROM: Right Upper Extremity: Shoulder Flexion WFL. Shoulder abduction WFL. Elbow flexion WFL. Wrist flexion WFL. Opening and closing of hand WFL. Left Upper Extremity: Shoulder Flexion WFL. Shoulder abduction WFL. Elbow flexion WFL. Wrist flexion WFL. Opening and closing of hand WFL. Right Lower Extremity: Hip flexion allows up to 90 degrees in supine but with pain at 2/10 at end range. Hip abduction allows up to 20 degrees gravity-eliminated. Knee and ankle ROM NT due to Chaidez dressing. Left Lower Extremity: Hip flexion WFL. Hip abduction WFL. Knee flexion WFL. Ankle dorsiflexion WFL. Ankle plantarflexion WFL. Strength: Right Upper Extremity: Shoulder flexors 5/5. Shoulder abductors 5/5. Elbow flexors 5/5. Elbow extensors 5/5. English Composition Instructor strong. Left Upper Extremity: Shoulder flexors 5/5. Shoulder abductors 5/5. Elbow flexors 5/5. Elbow extensors 5/5. English Composition Instructor strong. Right Lower Extremity: Hip flexors 3-/5. Hip abductors 3-/5. Knee flexors 5/5. Knee and ankle MMT NT due to Chaidez dressing. Left Lower Extremity:Hip flexors 5/5. Hip abductors 5/5. Knee flexors 5/5. Knee extensors 5/5. Ankle dorsiflexors 5/5. Ankle plantarflexors 5/5. Sensation: Intact as to pain and pressure on bilateral lower extremities. Bed Mobility/Transfers: Rolling supervision Supine to sit supervision Sit to supine supervision Sit to stand supervision Stand to sit supervision Bed to chair supervision Chair to bed supervision Gait: Patient was able to tolerate level surface ambulation of 30 feet x 2 using F WW with WBAT on right requiring only CGA of student PT and wheelchair follow of PT with decreased hip and knee flexion and resulting decrease in step height in length due to the presence of Chaidez dressing. Gait velocity is also decreased. Patient reported 4/10 pain throughout gait activity that subsided with rest. He denies headache, chest pain, dizziness and nausea during and after gait activity Balance: Static Sitting: Normal Dynamic Sitting: Good Static Standing: Good Dynamic Standing: Fair Special Tests: Mobility Limitations Standardized Measure [facility] 6 clicks Basic Mobility Inpatient Short Form: Raw Score: 21 CMS Score: 29% deficit Informed Consent/Education: Patient instructed in purpose of PT consult and plan of care. Assessment: Patient is a 43-year-old male with interosseous cyst on the R tibia S/P iliac bone graft placement on post operative day 1. Patient presents with clinical signs and symptoms consistent with current/admitting diagnoses that have resulted to mobility limitations, gait instability, generalized weakness, and impairment of motor control as demonstrated by the following impairment level findings: 1. Decreased strength to R LE major muscle groups 2. Impaired sitting/standing balance 3. Impaired activity tolerance 4. Limitation of joint range of motion in R hip and knee Impairments are contributing to the following functional limitations: 1. Dependent bed mobility skills 2. Increased dependence with transfers 3. Inability to safely ambulate without assistive device and physical assistance 4. Increase completion time for mobility ADL performance 5. Increased fall risk 6. Inability to negotiate steps alone safely Patient is assessed as a 19517 moderate complexity based on the following: History: 43-year-old male patient with past medical history relevant for cervical spinal stenosis and history of tobacco use Examination: Demonstrable impairment in strength, balance, and range of motion with underlying impairments and functional limitations as documented above Presentation:Evolving Decision Makin moderate complexity Goals: Goals X1 week 1. Supine-Sit independent 2. Sit-Supine independent 3. Sit-Stand independent 4. Stand-Sit independent 5. Bed-Chair independent 6. Chair-Bed independent 7. Independent gait on level surface with use of least restrictive device for at least 300 feet without report of pain nor dyspnea 8. Independent stair negotiation while holding onto bilateral rails for at least 10 steps without report of pain nor dyspnea 9. Independent with home exercise program 10. Good static and dynamic standing balance/tolerance Plan of Care/Treatment Plan: 1-2x/day, 7 days/week x 1 week. Plan of care has been reviewed with the DESIGN TRANSFERRER providing the service under Physical Therapy direction. Initiate Physical Therapy intervention for strengthening, bed mobility, transfers, gait, stairs, balance training, use of assistive device. DISCHARGE RECOMMENDATIONS: Patient will benefit from home health PT services in order to progress mobility level using least restrictive assistive ambulatory device, assess home safety, identify additional equipment needs, and establish a functional maintenance program that will increase ability of patient to remain at home. TREATMENT CODE/TIME: 9716 2 x 30 minutes, 9753 0 x 9 minutes beginning at 15:43 PM. Thank you very much for this referral. Katie Mata PT, DPT, CLT [facility]
[2019-05-01] MEDS: Docusate Sodium 100 MG CAP PO (19:44)
[2019-05-01] MEDS: Citalopram 20 MG TAB 40 MG PO (21:25)
[2019-05-01] MEDS: cloNIDine 0.1 MG TAB PO (21:26)
[2019-05-02] MEDS: oxyCODONE-CR 10 MG TABCR PO ×2 (00:02→12:39)
--- NOTE | 2019-05-02 00:49 | NUR.NOTE ---
Nursing Note:Beginning of the shift, pt approached the justowriter operator if he can go down to smoke. Reminded of hospital policy of no smoking policy, stayed on bed but asked to justowriter operator to go to bathroom, Agreed, but with strict supervision tended. Refused to take benadryl po as scheduled. Medicated for pain. Drsg on right leg and hip is C/D/I. stated not to wake him up , he said I want to sleep more.
[2019-05-02 04:43] VITALS: BP 123/78; PULSE 81; RESP 16; TEMP 36.3; O2SAT 94
[2019-05-02] MEDS: Ketorolac 30 MG/ML VIAL IVP ×2 (04:55→10:25)
[2019-05-02] MEDS: POTASSIUM CHLORIDE/0.9% NACL 1,000 ML 125 MEQ IV (07:12)
[2019-05-02 07:15] VITALS: BP 131/77; PULSE 60; RESP 18; TEMP 36.6; O2SAT 98
[2019-05-02] MEDS: Pantoprazole 40 MG TABCR PO (07:43)
[2019-05-02] MEDS: Multivitamin w/Minerals TAB 1 TAB PO (07:43)
[2019-05-02] MEDS: Docusate Sodium 100 MG CAP PO (07:43)
[2019-05-02] MEDS: Normal Saline Flush 10 ML SYR IV (10:25)
[2019-05-02 11:00] VITALS: BP 143/97; PULSE 61; RESP 18; TEMP 36.6; O2SAT 98
--- NOTE | 2019-05-02 12:12 | PT.INTREAT ---
Date of service: 05/02/19 Time of Service: 12:12 PT Notes Inpatient Physical Therapy Treatment Note [facility] Date: 05/02/19 PRECAUTIONS: Fall, WBAT R SUBJECTIVE: Satish is agreeable to participating in PT. He is hopeful that he will be discharged to home today. He reports that he does not have crutches at home, but he would prefer to use crutches versus FWW. OBJECTIVE: Patient was cleared to be independent with transfers and short distance gait within his room, when not connected to IV line. PAIN: No c/o pain BED MOBILITY/TRANSFERS Supine-sit: I Sit-stand: I Stand-sit: I GAIT Assistive Device: FWW; B Axillary Crutches Weight bearing: WBAT R Assist: I with FWW; S with B ax cx Distance: 120' with FWW; 120' with B ax cx Deviation: Cueing for continuous FWW advancement THEREX: Patient completed ankle pumps, quad and glute sets, and SLR exercises, demonstrating independence with these exercises. STAIRS: Up/down 3x4 and 2x6 using 1 rail/U ax cx and a step-to pattern with supervision ASSESSMENT: Patient tolerated session well without complaint. He was able to tolerate a progression in gait distance with both FWW support, then with B ax cx support, with supervision. Patient demonstrates independence with transfers and short-distance ambulation at this time. PLAN: As per primary PT TREATMENT CODE/TIME: 25 minutes; 42705, 61586
--- NOTE | 2019-05-02 12:43 | W.PM.DS.N ---
Date of service: 05/02/19 Time of Service: 12:44 Discharge Plan Disposition Patient Disposition: HOME Condition: Good Discharge Details Reason For Visit: INTRAOSSEOUS GANGLION CYST R TIBIA Admit Date/Time: 05/01/19 10:03 Admit Provider: Yogesh Zepeda Attending Provider: Yogesh Zepeda Primary Care Provider: Rachel Montenegro V Hospital Course Hospital Course: Patient was taken the operating room on the day of admission on 05/01/2019 where he underwent an excision of a intraosseous ganglion cyst from the right tibia. The resultant defect was filled with cancellus bone from the right iliac crest. On postop day #1 he was afebrile. He was taking only p.o. pain meds. His pain was well managed with p.o. pain meds. He was fully independent with his mobility. He is weightbearing as tolerated with crutches. It was felt he had completed his acute care goals and was ready for discharge home. Home Meds and New Rx's Prescriptions: New hydrocodone-acetaminophen 5-325 mg tablet 1 tab PO Q6H PRN (Reason: pain) Qty: 20 RF: 0 Continued fluticasone propionate [Flonase] 16 GM spray,suspension 50 mcg NS DAILY PRNRF: 0 levalbuterol tartrate [Xopenex HFA] 15 GM HFA aerosol inhaler 90 mcg Inhalation Q6H PRN RF: 0 loratadine [Claritin RediTabs] 10 mg tablet,disintegrating 10 mg PO DAILY PRNRF: 0 tizanidine 4 mg capsule 4 mg PO TID PRN (Reason: muscle spasticity) Qty: 30 RF: 1 clonidine HCl [Catapres] 0.1 MG tablet 0.1 mg PO HS RF: 0 omeprazole 20 MG tablet,delayed release (DR/EC) 20 mg PO HS RF: 0 citalopram 40 MG tablet 40 mg PO HS RF: 0 clonazepam 0.5 MG tablet 0.5 mg PO BID PRNRF: 0 diphenhydramine-acetaminophen [Tylenol PM Extra Strength] 25-500 mg Tablet 2 tab PO HS RF: 0 ibuprofen 800 mg tablet 800 mg PO TID Qty: 30 RF: 0 diphenhydramine HCl [Benadryl] 25 MG capsule 25 mg PO Q6H Qty: 100 RF: 0 lorazepam [Ativan] 0.5 mg tablet 0.5 mg PO TID PRN (Reason: anxiety) Qty: 4 RF: 0 Discharge Instructions Additional Instructions: Use crutches to walk. Apply ice to right hip incision 4 times a day for an hour each time to help with swelling and pain. Elevate right leg when sitting. May shower and get your incisions wet after another 48 hours. Cover the eun with light gauze dressing so they do not catch on clothing. Use Darien bandage on right leg to decrease swelling. Rewrapped Darien bandage as needed. Take ibuprofen 800 mg 3 times a day. Take hydrocodone for breakthrough pain, if needed. Follow-up with Dr. Zepeda's office in 2 weeks. Stand Alone Forms: Nursing Discharge Form Referrals: Yogesh Zepeda MD [ [facility] STAFF PHYSICIAN] - (f/u 2 weeks) Activity:: Activity as Tolerated Equipment/Supplies:: Crutches Diet:: As Tolerated Discharge Orders Discharge Orders: Discharge Order (Routine); Ordered 05/02/19 Ordered By: Yogesh Zepeda DS: Summary Status at Discharge Functional status at discharge: uses cane/walker Overall status at discharge: patient is progressing back to baseline Mental Status: mental status grossly normal Speech and Movement: speech and movement normal Mood: congruent mood Affect: normal affect Exam Psych Mental Status: mental status grossly normal Speech and Movement: speech and movement normal Mood: congruent mood Affect: normal affect DS: Data Vitals/I&O Vitals and I&O: Vital Signs Temperature 36.6 C 05/02/19 11:00 Temperature Source Tympanic 05/02/19 11:00 Pulse 61 05/02/19 11:00 Pulse Rhythm Regular 05/02/19 04:45 Respiratory Rate 18 05/02/19 11:00 Respiratory Effort Non-Labored 05/02/19 04:45 Respiratory Depth Normal 05/02/19 04:45 Respiratory Pattern Normal 05/02/19 04:45 Blood Pressure 143/97 H 05/02/19 11:00 Pulse Oximetry 98 05/02/19 11:00 Respiratory End-tidal CO2 38 05/01/19 10:55 Oxygen Delivery Method Room Air 05/02/19 11:00 Oxygen Flow Rate 0 05/02/19 11:00 Pain Level 2 05/02/19 12:39 Intake & Output 09/05/02/19 05/02/19 23:59 11:59 23:59 Intake Total 2889.166 / 3759.166 1680 / 1680 Output Total 650 / 650 200 / 200 Balance 2239.166 / 3109.166 1480 / 1480 Intake: IV 2329.166 / 3079.166 1200 / 1200 Oral 560 / 680 480 / 480 Output: Urine 650 / 650 200 / 200 Other: Urine Color Light Consuelo Light Consuelo Urine Appearance Clear Clear Urine Odor Normal Emesis Description None Voiding Methods Toilet Urinal PFSH Social History Smoking/Tobacco Use Status: Current every day Tobacco Type: cigarettes Years smoked: 30 Tobacco: How many years used: 20 Alcohol Intake: never Drug use: Never Substance use type: does not use Do you feel safe at home: Yes Do you feel safe in your relationship?: Yes
--- NOTE | 2019-05-02 13:43 | PDOC.CMPRO ---
Care Management Progress Note Satish is independent in the community at baseline, he resides in [place] with his significant other, Lola. Satish was lying in bed when CM met with him, he was already fully dressed and prepared for discharge. He shared no concerns about discharge and reported he anticipated participating in outpatient PT. He shared that he has a month of FMLA time off from work and reported MD relayed that he would be ready to return to work at that time. Satish was pleasant in interaction.
--- NOTE | 2019-05-02 16:50 | ROE_ITS ---
DATE OF PROCEDURE: May 01, 2019 PREOPERATIVE DIAGNOSIS: Interosseous ganglion cyst right proximal tibia, recurrent. POSTOPERATIVE DIAGNOSIS: Same. PROCEDURE: Excision of recurrent interosseous ganglion cyst right proximal tibia with right iliac cr est bone grafting of the bony defect. ANESTHESIA: General, Luiz Worthington CRNA SURGEON: Yogesh Zepeda M.D. DIRECTOR PAYER: Tianna Atkins INDICATIONS: This is a 43-year-old white male who I had treated for a previous intraosseous ganglion cyst of the right proximal tibia, involving the lateral proximal tibia beneath the tray of a total k nee replacement. The diagnosis was confirmed by pathology. After the cyst was excised I had attempt ed to fill the defect in the proximal lateral tibia with Norian calcium phosphate bone substitute. M y goal was to reconstitute the bony support for the lateral portion of the tibial component of a tota l knee replacement and prevent early loosening. He initially did well after the cyst excision and th en the cyst recurred. He has pain mainly from the cyst expanding in his anterior compartment muscles . He doesn't have pain with just simple weightbearing. X-rays showed that the Norian calcium phosph ate bone substitute did not incorporate into the proximal tibia, but was just remaining inert. Repea t excision of the ganglion cyst was recommended with excision of the un-resorbed Norian bone graft garg bstitute. I would then fill any remaining bony defects with right iliac crest bone graft. The risks and complications of the procedure were explained to the patient in detail preoperatively. PROCEDURE: The patient was taken to the Operating Room on 05/01/19. He was placed supine on the oper ating table and a general anesthetic was administered. A rolled bed sheet was placed under his right buttock. A proximal tourniquet was applied to his right thigh. The right lower extremity was prepp ed from toes to tourniquet and draped free in the usual sterile fashion. The right iliac crest was b lock draped in the usual sterile fashion. An incision was made under proximal tourniquet control, incorporating the old scar on the anterolater al proximal leg. The incision was carried down to the anterior compartment fascia, which was incised longitudinally. The anterior compartment muscles were then gently mobilized laterally and the gangl ion cyst was circumferentially dissected. The distal extent of the cyst was identified and then pilar eddie of the cyst proceeded from distal to proximal using sharp dissection and a rongeur to strip off t he liner of the cyst. The cyst had extended down to the interosseous membrane posteriorly. Proximal ly I encountered the Norian bone graft substitute in the proximal lateral tibia. The Norian was chal ky and had not resorbed at all. Using curettes and rongeurs I was able to remove all the Norian. Po sterior to the Norian, that is actual proximal and posterior to the Norian and lateral tibial plateau , there was more of the ganglion cyst fluid present. This indicated that some of the cyst still was present in the bone. When it was determined that I had removed all cyst tissue and curetted the bone down to bleeding cancellous bone, attention was turned to getting the bone graft. An incision was made about a centimeter to two centimeters distal to the anterior iliac crest but par allel to it, beginning at the anterior superior iliac spine and extending posteriorly about 4 to 5 in ches. The incision was carried down to the subcu directly to the periosteum on the iliac crest. Sub cu bleeders were cauterized. Self-retraining retractors were inserted. Using electrocautery I incis ed the periosteum on the iliac crest and with subperiosteal dissection stripped the muscles from the outer table of the pelvis. A cortical window was then created starting at the iliac crest and extend ing distally, incorporating just the outer table of the pelvis. I was able to take this corticocance llous window and remove it. I then had access to cancellous bone. I harvested abundant amounts of c ancellous bone using gouges and curettes. I packed the bone graft into the defects on the proximal t ibia. When I had filled the defects in their depths, I then filled more superficially with corticoca ncellous strips created from the outer table pelvic window I had created. When I was content that th e defect had been completely filled in the tibia, I then began closing the pelvic wound. The wound m argins were infiltrated with 0.5% Marcaine with an epinephrine solution. Tranexamic acid, 2 grams in 150 cc's of saline was placed in the depths of the wound of the iliac crest and allowed to stay for a minute before suctioning. The fascia from the outer table muscles was sutured to the periosteum ov er the iliac crest with interrupted [id number] sutures of #1 Vicryl suture material. The subcu was approximated with interrupted #2-0 Vicryl sutures. The skin edges were approximated with skin st aples. Sterile dressings were applied, followed by a light pressure dressing. The tibial wound was irrigated with Betadine and saline solution. Some of the tranexamic acid soluti on that remained after irrigating the iliac crest incision was then placed in the tibial wound and al lowed to stay for a minute before suctioning. The wound margins were infiltrated with 0.5% Marcaine with an epinephrine solution. The anterior compartment fascia was then approximated with interrupted [id number] sutures of #1 Vicryl suture material. The subcu was approximated with a few interru pted #2-0 Vicryl sutures. The skin edges were approximated with skin eun. A short-leg Chaidez com pressive dressing was applied to the right lower extremity. The tourniquet was released. The patien t's anesthesia was reversed without complications. He was discharged to recovery in good condition. He will be admitted for postop pain control and mobilization with Physical Therapy.
--- NOTE | 2019-05-04 08:06 | PT.INDS ---
Date of service: 05/04/19 PT Notes Inpatient Physical Therapy Discharge Summary Dates: 05/04/2019 Dates of Service: 05/01/2019 through 05/02/2019 This is a clinical summary of care provided on the duration of dates listed above. No charge was made in the completion of this documentation. Referring Doctor: Yogesh Zepeda MD PT Orders: PT CONSULT: S/P Ortho Surgery Precautions: Fall. Standard. WBAT on R LE. Patient Profile/Admitting Diagnosis: Patient is a 43-year-old male who has a diagnosis of an interosseous ganglion cyst S/P Excision and iliac crest bone graft placement on post operative day 1. PMHX: Medical History Anxiety (Chronic) Asthma Tobacco user Benign hypertension DIVERTICULOSIS OF COLON Gastroesophageal reflux disease HX TOBACCO USE HYPERLIPIDEMIA SPIINAL STENOSIS CERVICAL REGION Surgical History H/O arthroscopy of right knee (Acute) right knee w/ partial meniscectomy in 2007 by CDDx2. 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 His bedroom is on the second floor but patient states that he plans on making a makeshift bed or on using his couch on the first floor while he is recovering until he is able to negotiate steps. He is independent with all aspects of ADLs with no AD nor adaptive equipment. 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 Equipment Owned/DME: None Subjective: NT. Please see 05/02/2019 H[employer] WIRE GLASS TUBE CUTTER notes. Objective: General Observation: NT. Please see 05/02/2019 H[employer] WIRE GLASS TUBE CUTTER notes. Mental Status: NT. Please see 05/02/2019 H[employer] WIRE GLASS TUBE CUTTER notes. Pain: NT. Please see 05/02/2019 HOT WIRE GLASS TUBE CUTTER notes. ROM: Right Upper Extremity: Shoulder Flexion WFL. Shoulder abduction WFL. Elbow flexion WFL. Wrist flexion WFL. Opening and closing of hand WFL. Left Upper Extremity: Shoulder Flexion WFL. Shoulder abduction WFL. Elbow flexion WFL. Wrist flexion WFL. Opening and closing of hand WFL. Right Lower Extremity: Hip flexion allows up to 90 degrees in supine but with pain at 2/10 at end range. Hip abduction allows up to 20 degrees gravity-eliminated. Knee and ankle ROM NT due to Chaidez dressing. Left Lower Extremity: Hip flexion WFL. Hip abduction WFL. Knee flexion WFL. Ankle dorsiflexion WFL. Ankle plantarflexion WFL. Strength: Right Upper Extremity: Shoulder flexors 5/5. Shoulder abductors 5/5. Elbow flexors 5/5. Elbow extensors 5/5. Spool Sander strong. Left Upper Extremity: Shoulder flexors 5/5. Shoulder abductors 5/5. Elbow flexors 5/5. Elbow extensors 5/5. Spool Sander strong. Right Lower Extremity: Hip flexors 3-/5. Hip abductors 3-/5. Knee flexors 5/5. Knee and ankle MMT NT due to Chaidez dressing. Left Lower Extremity:Hip flexors 5/5. Hip abductors 5/5. Knee flexors 5/5. Knee extensors 5/5. Ankle dorsiflexors 5/5. Ankle plantarflexors 5/5. Sensation: Intact as to pain and pressure on bilateral lower extremities. Bed Mobility/Transfers: Rolling independent Supine to sit independent Sit to supine independent Sit to stand independent Stand to sit independent Bed to chair independent Chair to bed independent Gait: Patient was able to tolerate level surface ambulation of 120 feet x 2 using FWW with WBAT independently with considerable increase in hip and knee flexion as well as in step height in length. Gait velocity is also decreased. Balance: Static Sitting: Normal Dynamic Sitting: Good Static Standing: Good Dynamic Standing: Fair Assessment: Patient is a 43-year-old male with interosseous cyst on the R tibia S/P iliac bone graft placement on post operative day 1. Patient presents with clinical signs and symptoms consistent with current/admitting diagnoses that have resulted to mobility limitations, gait instability, generalized weakness, and impairment of motor control as demonstrated by the following impairment level findings: 1. Decreased strength to R LE major muscle groups 2. Impaired sitting/standing balance 3. Impaired activity tolerance 4. Limitation of joint range of motion in R hip and knee Impairments are contributing to the following functional limitations: 1. Dependent bed mobility skills 2. Increased dependence with transfers 3. Inability to safely ambulate without assistive device and physical assistance 4. Increase completion time for mobility ADL performance 5. Increased fall risk 6. Inability to negotiate steps alone safely Goals: Goals X1 week 1. Supine-Sit independent MET 2. Sit-Supine independent MET 3. Sit-Stand independent MET 4. Stand-Sit independent MET 5. Bed-Chair independent MET 6. Chair-Bed independent MET 7. Independent gait on level surface with use of least restrictive device for at least 300 feet without report of pain nor dyspnea NOT MET 8. Independent stair negotiation while holding onto bilateral rails for at least 10 steps without report of pain nor dyspnea NOT MET 9. Independent with home exercise program NOT MET 10. Good static and dynamic standing balance/tolerance NOT MET DISCHARGE RECOMMENDATIONS: Patient will benefit from home health PT services in order to progress mobility level using least restrictive assistive ambulatory device, assess home safety, identify additional equipment needs, and establish a functional maintenance program that will increase ability of patient to remain at home. TREATMENT CODE/TIME: NC. Thank you very much for this referral. Katie Mata PT, DPT, CLT [facility]
== END 2019-05-02 14:17 | disposition home or self-care (01) | DRG 479 ==
LOC: SUR 10:39 → MS 13:50
PROVIDERS: Admitting Provider Orthopaedic Surgery; PCP Family Medicine; Visit Provider Orthopaedic Surgery
PROC: 0QBG0ZX Excision of Right Tibia, Open Approach, Diagnostic (ICD-10-PCS; CPT 27637; principal; 2019-05-01 07:30)
PROC: 0QBG0ZX Excision of Right Tibia, Open Approach, Diagnostic (ICD-10-PCS; CPT 27637; 2019-05-01 07:30)
DX: M67.461 Ganglion, right knee (principal); Z96.651 Presence of right artificial knee joint; F17.210 Nicotine dependence, cigarettes, uncomplicated; K21.9 Gastro-esophageal reflux disease without esophagitis; E78.5 Hyperlipidemia, unspecified; I10 Essential (primary) hypertension
CPT/HCPCS: 27637; 97110; 97162; 97530; NC; 73560; 88304; E0114; J0690; J1100; J1885; J2250; J2405; J3010

== ENCOUNTER 2019-06-13 10:28 | Outpatient (CLI) | payer OTHER, SELFPAY ==
--- NOTE | 2019-06-13 10:10 | DI.RAD_ITS ---
EXAM: XR KNEE RT 2V AP,LAT INDICATION: f/u. COMPARISON: XR KNEE RT 2V AP,LAT from 05/01/2019 TECHNIQUE: 2D digital imaging was performed. FINDINGS: There has been no change in the alignment of the knee prosthesis or appearance of the surrounding domingo ne.
== END 2019-06-13 10:48 ==
PROVIDERS: PCP Family Medicine; Visit Provider Orthopaedic Surgery
DX: Z96.651 Presence of right artificial knee joint (principal); Z47.1 Aftercare following joint replacement surgery
CPT/HCPCS: 73560

== ENCOUNTER 2019-10-03 15:06 | Outpatient (REF) | payer SELFPAY ==
[2019-10-06 11:30] LABS: 2-OH-Ethyl-Flurazepam Negative ng/mL (Cutoff: 100); 7-NH-Clonazepam 119 ng/mL (Cutoff: 100); 7-NH-Flunitrazepam Negative ng/mL (Cutoff: 50); Alpha OH-Alprazolam Negative ng/mL (Cutoff: 100); Alpha-OH-Triazolam Negative ng/mL (Cutoff: 100); Benzodiazepines Interpretation Positive.; Lorazepam Negative ng/mL (Cutoff: 100); Temazepam Negative ng/mL (Cutoff: 100)
== END 2019-10-03 15:26 ==
LOC: NCHCN 15:06
PROVIDERS: PCP Family Medicine; Visit Provider Family Medicine
DX: Z02.89 Encounter for other administrative examinations (principal)
CPT/HCPCS: 80346

== ENCOUNTER 2019-10-14 15:10 | Emergency (ER) | payer MEDICAID, SELFPAY ==
[2019-10-14 15:14] VITALS: BP 122/76; PULSE 83; RESP 16; TEMP 36.6; O2SAT 98
--- NOTE | 2019-10-14 17:02 | W.ED.GENAD ---
Discharge Plan Disposition Patient Disposition: HOME Condition: Stable Discharge Details Chief Complaint: Laceration Clinical Impression: Laceration Primary Care Provider: Rachel Montenegro V ED Provider: Lynne Villalta Home Meds and New Rx's Prescriptions: No Action fluticasone propionate [Flonase] 16 GM spray,suspension 50 mcg NS DAILY PRNRF: 0 levalbuterol tartrate [Xopenex HFA] 15 GM HFA aerosol inhaler 90 mcg Inhalation Q6H PRN RF: 0 loratadine [Claritin RediTabs] 10 mg tablet,disintegrating 10 mg PO DAILY PRNRF: 0 tizanidine 4 mg capsule 4 mg PO TID PRN (Reason: muscle spasticity) Qty: 30 RF: 1 clonidine HCl [Catapres] 0.1 MG tablet 0.1 mg PO HS RF: 0 omeprazole 20 MG tablet,delayed release (DR/EC) 20 mg PO HS RF: 0 citalopram 40 MG tablet 40 mg PO HS RF: 0 clonazepam 0.5 MG tablet 0.5 mg PO BID PRNRF: 0 diphenhydramine-acetaminophen [Tylenol PM Extra Strength] 25-500 mg Tablet 2 tab PO HS RF: 0 ibuprofen 800 mg tablet 800 mg PO TID Qty: 30 RF: 0 diphenhydramine HCl [Benadryl] 25 MG capsule 25 mg PO Q6H Qty: 100 RF: 0 lorazepam [Ativan] 0.5 mg tablet 0.5 mg PO TID PRN (Reason: anxiety) Qty: 4 RF: 0 Discharge Instructions Instructions: Laceration (ED) Additional Instructions: Keep initial dressing on for 24 to 48 hours. Then remove and begin wound care. Wound care recommended to wash once or twice daily. Pat dry completely. Apply a light amount of topical antibiotic ointment to the area. Observe for any signs of infection. Suture removal in 10 to 14 days. Return sooner if needed as discussed. Discharge Data Discharge Date/Time-TO BE ENTERED AT DEPARTURE: 10/14/19 16:35 Medical Decision Making Is a very pleasant 43-year-old patient presenting to the emergency room for left thumb laceration. Patient sustained laceration on a metal edge of a product he was taking out of a box at work prior to arrival. Patient is concerned as he can clearly see tissue exposed and feels he likely requires sutures. Patient's tetanus is up-to-date. Patient has nothing to indicate a ligamentous injury at this time. Patient has full range of motion of the thumb. No bony pain with palpation and also has no suspicion of bony injury at this time. Sensation is intact distally. Local infiltrated of lidocaine after Betadine prep. Area extensively irrigated, wound explored without indication of deep space injury or joint capsule involvement. 5 sutures placed for reapproximation of wound edges. Patient tolerated procedure without any difficulty. Dressings placed. Wound care and management discussed. Signs and symptoms of infection discussed. Timing of suture removal discussed. Patient reports his understanding and agrees with plan of care. The patient was stable and requested discharge. Prior to discharge, my usual and customary return precautions were reviewed with the patient - this included follow-up instructions and reasons to return to the Emergency Department if conditions worsens, does not improve as expected, or other new concerns arise. HPI General Date/Time Provider Initiated Documentation: 10/14/19 16:29. HPI Narrative: Is a 43-year-old patient presenting to the emergency room for complaints of laceration to the left thumb. Patient sustained laceration at work he was opening a box and a piece of clean metal sliced his thumb. Patient presents with a 2 cm linear laceration over the palmar aspect of the proximal phalanx of the first digit. Bleeding controlled. Patient denies numbness, tingling or weakness. Patient denies any limitation to range of motion. Patient reports he was able to see tissue beneath therefore he was concerned he required stitches. Patient's tetanus was last updated in 2011 and he would prefer to defer until he is due in 2021. Patient denies any other concerns or complaints at this time. Related Data Home Medications Medication Instructions Recorded Confirmed clonidine HCl [Catapres] 0.1 mg PO HS 10/10/12 10/14/19 omeprazole 20 mg PO HS 10/10/12 10/14/19 citalopram 40 mg PO HS 04/29/13 10/14/19 clonazepam 0.5 mg PO BID PRN 05/03/13 10/14/19 fluticasone propionate [Flonase] 50 mcg NS DAILY PRN spray 10/23/14 10/14/19 levalbuterol tartrate [Xopenex HFA] 90 mcg INHALATION Q6H PRN inhaler 10/23/14 10/14/19 diphenhydramine-acetaminophen 2 tab PO HS 06/29/18 10/14/19 [Tylenol PM Extra Strength] ibuprofen 800 mg PO TID #30 tab 06/29/18 10/14/19 loratadine 10 mg disintegrating 10 mg PO DAILY PRN tab-cap 02/08/19 10/14/19 tablet diphenhydramine HCl [Benadryl] 25 mg PO Q6H #100 cap 02/20/19 10/14/19 tizanidine 4 mg capsule 4 mg PO TID PRN #30 cap 04/05/19 10/14/19 lorazepam [Ativan] 0.5 mg PO TID PRN #4 tab 04/28/19 10/14/19 Previous Rx's Medication Instructions Recorded ibuprofen 800 mg PO TID #30 tab 06/29/18 diphenhydramine HCl [Benadryl] 25 mg PO Q6H #100 cap 02/20/19 tizanidine 4 mg capsule 4 mg PO TID PRN #30 cap 04/05/19 lorazepam [Ativan] 0.5 mg PO TID PRN #4 tab 04/28/19 Allergies Allergy/AdvReac Type Severity Reaction Status Date / Time gabapentin AdvReac Intermediate Psychosis Verified 10/14/19 15:12 lisinopril AdvReac Mild Cough Verified 10/14/19 15:12 General Stated Complaint: Laceration STACI: 4 Review of Systems All systems reviewed & are unremarkable except as noted in HPI and below Constitutional Constitutional: Denies weakness Musculoskeletal Musculoskeletal: Denies deformity, Denies limited range of motion, Denies numbness and Denies tingling Integumentary/Breasts Skin/Breast: Denies erythema and Reports wounds Neurologic Neurologic: Denies focal weakness, Denies numbness, Denies tingling, Denies paresthesias and Denies weakness [facility] Medical History Anxiety (Chronic) Asthma Tobacco user Benign hypertension DIVERTICULOSIS OF COLON Gastroesophageal reflux disease HX TOBACCO USE HYPERLIPIDEMIA SPIINAL STENOSIS CERVICAL REGION Social History Smoking/Tobacco Use Status: Current every day Tobacco Type: cigarettes Years smoked: 30 Tobacco: How many years used: 20 Alcohol Intake: never Drug use: Never Substance use type: does not use Do you feel safe at home: Yes Do you feel safe in your relationship?: Yes Exam Narrative Exam Narrative: CONST: Healthy appearing patient, in no acute distress. Well hydrated. Alert and oriented. MUSCULOSKELETAL: Normal Gait. FROM of all extremities. Patient has a laceration noted to the left thumb. Laceration noted over the proximal phalanx on the palmar aspect of the thumb. Patient has full flexion and extension, strength intact. Nothing to indicate a ligamentous injury at this time. Bleeding is easily controlled. Sensation intact throughout the digit. No bony pain with palpation. Patient has a 2 cm linear laceration with extension into the subcutaneous, upon exploration of the wound there is no indication of involvement of the joint capsule. SKIN: Normal. Dry. No rashes. See above description of laceration NEURO: Alert and awake. Speech clear. PSYCH: Normal affect. Cooperative. Course Vital Signs Vital signs: Vital Signs Temperature 36.6 C 10/14/19 15:14 Pulse 83 10/14/19 15:14 Respiratory Rate 16 10/14/19 15:14 Blood Pressure 122/76 10/14/19 15:14 Pulse Oximetry 98 10/14/19 15:14 Temperature 36.6 C 10/14/19 15:14 Temperature Source Temporal Artery Scan 10/14/19 15:14 Pulse 83 10/14/19 15:14 Respiratory Rate 16 10/14/19 15:14 Respiratory Effort Non-Labored 10/14/19 15:17 Blood Pressure 122/76 10/14/19 15:14 Blood Pressure Position Sitting 10/14/19 15:14 Pulse Oximetry 98 10/14/19 15:14 Oxygen Delivery Method Room Air 10/14/19 15:14 Oxygen Flow Rate 0 10/14/19 15:14 Pain Level 1 10/14/19 15:14 Procedures Laceration Laceration 1: Site: hand Side (If applicable): left Size (cm): 2 Description: linear Depth: simple, single layer Local Anesthetic: Lidocaine 1% Amount of anesthesia used (mL): 2.5 Pre-repair: wound explored and irrigated extensively Skin layer closed with: other (prolene) Size (cm): 4-0 Number of sutures: 5
== END 2019-10-14 16:35 | disposition home or self-care (01) ==
PROVIDERS: Emergency Provider Physician Assistant; PCP Family Medicine
DX: S61.012A Laceration without foreign body of left thumb without damage to nail, initial encounter (principal); W26.8XXA Contact with other sharp object(s), not elsewhere classified, initial encounter; Y99.0 Civilian activity done for income or pay
CPT/HCPCS: 12001

== ENCOUNTER 2020-01-22 20:51 | Emergency (ER) | payer MEDICAID, SELFPAY ==
--- NOTE | 2020-01-22 20:45 | DI.RAD_ITS ---
EXAM: XR ANKLE LT COMPLETE CLINICAL HISTORY: Mirror fell on ankle, pain, medial laceration TECHNIQUE: 2D digital imaging was performed. COMPARISON: No exams were available for comparison FINDINGS: BONES: No acute fracture is present. No bony destructive lesion is seen. JOINTS:The ankle mortise is normally aligned. SOFT TISSUE: Normal. Foreign body is identified. IMPRESSION: Unremarkable radiographs of the left ankle. DATA REPOSITORY: RADIATION DOSE DELIVERED:
[2020-01-22 21:01] VITALS: BP 134/89; PULSE 102; RESP 20; TEMP 36.8; O2SAT 98
--- NOTE | 2020-01-22 21:40 | DI.VRAD_ITS ---
PROCEDURE INFORMATION: Exam: XR Left Ankle Exam date and time: 01/22/2020 9:28 PM Age: 44 years old Clinical indication: Injury or trauma; Injury history: Mirror fell on ankle, pain, medial laceration; Initial encounter; Left; Foreign body involvement not specified TECHNIQUE: Imaging protocol: XR Left ankle. Views: 3 or more views. COMPARISON: No relevant prior studies available. FINDINGS: Bones/joints: Normal. Soft tissues: No radiopaque foreign body. IMPRESSION: No acute findings. Dictated and Authenticated by: Bravo Alonzo MD. Ordering:NYA Duarte MD
--- NOTE | 2020-01-22 22:07 | ED.GENADUL_ITS ---
Discharge Plan Disposition Patient Disposition: HOME Condition: Stable Discharge Details Chief Complaint: Laceration Clinical Impression: Laceration of ankle Primary Care Provider: Rachel Montenegro V ED Provider: Gerald Hale Home Meds and New Rx's Prescriptions: Continued fluticasone propionate [Flonase] 16 GM spray,suspension 50 mcg NS DAILY PRNRF: 0 levalbuterol tartrate [Xopenex HFA] 15 GM HFA aerosol inhaler 90 mcg Inhalation Q6H PRN RF: 0 loratadine [Claritin RediTabs] 10 mg tablet,disintegrating 10 mg PO DAILY PRNRF: 0 clonidine HCl [Catapres] 0.1 MG tablet 0.1 mg PO HS RF: 0 omeprazole 20 MG tablet,delayed release (DR/EC) 20 mg PO HS RF: 0 citalopram 40 MG tablet 40 mg PO HS RF: 0 clonazepam 0.5 MG tablet 0.5 mg PO BID PRNRF: 0 diphenhydramine-acetaminophen [Tylenol PM Extra Strength] 25-500 mg Tablet 2 tab PO HS RF: 0 ibuprofen 800 mg tablet 800 mg PO TID Qty: 30 RF: 0 diphenhydramine HCl [Benadryl] 25 MG capsule 25 mg PO Q6H Qty: 100 RF: 0 Discharge Instructions Instructions: Laceration (ED) Additional Instructions: Rest, elevate, cool and/or warm compresses every 2 hours for 20 minutes. [id number] medications as directed for symptomatic control. Keep area cloleen an and dry, change in his body dressing daily. Please watch for new or worsening symptoms and return to the ER for any concerns. I have given you the name and number of our local orthopedics, I do recommend that you contact them tomorrow for prompt outpatient reevaluation. Sutures removed in approximately 10 days. Stand Alone Forms: Work Release Referrals: Yogesh Zepeda MD [ [facility] STAFF PHYSICIAN] - Medical Decision Making Patient presents for a left ankle laceration. Neuro, vascular, tendon intact. No obvious foreign body. Will update tetanus. Will obtain x-ray to rule any bony involvement or possible foreign body. X-ray obtained, read by me and confirmed through virtual radiology as negative, no obvious bony abnormality or foreign body. Did discuss with patient the findings of the x-ray and the ongoing chance of retained foreign body. Sutures removed without difficulty, please see procedure note. I discussed disposition. Patient will have the wound cleaned and dressed. He declines crutches but would like a work note for the rest of the week. Will also provide orthopedic follow-up Medical Records Medical records reviewed: Yes I reviewed the patient's medical records. HPI General Mode of arrival: ambulatory . Date/Time Provider Initiated Documentation: 01/22/20 20:59 . Limitations to Documentation: no limitations . Information obtained by: patient . HPI Narrative: This is a 44-year-old gentleman with history of anxiety, asthma, GERD, hypertension presenting for evaluation of a left ankle laceration. He reports just prior to arrival, he dropped a mirror, and fell striking with the ankle in the glass broke. He sustained a laceration. Pain is mild at the moment. He reports some tingling but no true numbness or weakness. Tetanus is not up-to-date. Denies any other injury. He does not see or feel any obvious foreign body. Related Data Home Medications Medication Instructions Recorded Confirmed clonidine HCl [Catapres] 0.1 mg PO HS 10/10/12 01/22/20 omeprazole 20 mg PO HS 10/10/12 01/22/20 citalopram 40 mg PO HS 04/29/13 01/22/20 clonazepam 0.5 mg PO BID PRN 05/03/13 01/22/20 fluticasone propionate [Flonase] 50 mcg NS DAILY PRN spray 10/23/14 01/22/20 levalbuterol tartrate [Xopenex HFA] 90 mcg INHALATION Q6H PRN inhaler 10/23/14 01/22/20 diphenhydramine-acetaminophen 2 tab PO HS 06/29/18 01/22/20 [Tylenol PM Extra Strength] ibuprofen 800 mg PO TID #30 tab 06/29/18 01/22/20 loratadine 10 mg disintegrating 10 mg PO DAILY PRN tab-cap 02/08/19 01/22/20 tablet diphenhydramine HCl [Benadryl] 25 mg PO Q6H #100 cap 02/20/19 01/22/20 Previous Rx's Medication Instructions Recorded ibuprofen 800 mg PO TID #30 tab 06/29/18 diphenhydramine HCl [Benadryl] 25 mg PO Q6H #100 cap 02/20/19 Allergies Allergy/AdvReac Type Severity Reaction Status Date / Time gabapentin AdvReac Intermediate Psychosis Verified 01/22/20 21:03 lisinopril AdvReac Mild Cough Verified 01/22/20 21:03 General Stated Complaint: Laceration STACI: 3 Review of Systems Constitutional Constitutional: Denies fever(s) and Denies weakness Gastrointestinal Gastrointestinal: Denies nausea Musculoskeletal Musculoskeletal: Denies back pain, Denies arthralgias, Denies numbness, Denies stiffness and Reports tingling Integumentary/Breasts Skin/Breast: Denies rash Neurologic Neurologic: Denies numbness, Reports tingling and Denies weakness [facility] Medical History Anxiety (Chronic) Asthma Tobacco user Benign hypertension DIVERTICULOSIS OF COLON Gastroesophageal reflux disease HX TOBACCO USE HYPERLIPIDEMIA SPIINAL STENOSIS CERVICAL REGION Surgical History H/O arthroscopy of right knee (Acute) right knee w/ partial meniscectomy in 2007 by [facility]Dx2. 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 Father Tremor Anxiety Paternal Aunt Lung cancer Social History Smoking/Tobacco Use Status: Current every day Tobacco Type: cigarettes Years smoked: 30 Tobacco: How many years used: 20 Alcohol Intake: never Drug use: Never Substance use type: does not use Do you feel safe at home: Yes Do you feel safe in your relationship?: Yes Exam Const General: cooperative, healthy appearing, comfortable and no acute distress Orientation: alert and awake HENMT Head: normal to inspection, normocephalic and atraumatic Mouth: moist mucous membranes Eyes Conjunctivae: conjunctivae normal Neck Neck: normal visual inspection, trachea midline and supple Resp Effort & Inspection: normal respiratory effort and able to speak in complete sentences Cardio Rate: regular rate Rhythm: regular rhythm Skin General skin exam: no rashes or lesions noted Neuro General: patient alert, patient awake, moves all extremities and no focal motor deficits Motor: muscle tone normal throughout and strength 5/5 throughout Sensory Exam: no sensory deficits noted Extrem Right lower extremity: ankle Details: laceration (Medial aspect below the malleolus. 1.5 cm) and other (No active bleeding. No obvious foreign body) and foot Details: normal capillary refill, normal to inspection, toes with normal ROM, vascular exam Details: dorsalis pedis pulse present and normal capillary refill, tendon exam Details: active flexion normal and active extension normal and motor-sensory exam Details: light-touch normal Psych Appearance: grossly normal Mental Status: mental status grossly normal Course Vital Signs Vital signs: Vital Signs Temperature 36.8 C 01/22/20 21:01 Pulse 102 H 01/22/20 21:01 Respiratory Rate 20 01/22/20 21:01 Blood Pressure 134/89 01/22/20 21:01 Pulse Oximetry 98 01/22/20 21:01 Temperature 36.8 C 01/22/20 21:01 Temperature Source Temporal Artery Scan 01/22/20 21:01 Pulse 102 H 01/22/20 21:01 Respiratory Rate 20 01/22/20 21:01 Respiratory Effort Non-Labored 01/22/20 21:04 Blood Pressure 134/89 01/22/20 21:01 Blood Pressure Position Sitting 01/22/20 21:01 Pulse Oximetry 98 01/22/20 21:01 Oxygen Delivery Method Room Air 01/22/20 21:01 Oxygen Flow Rate 0 01/22/20 21:01 Pain Level 4 01/22/20 21:01 Procedures Laceration Laceration 1: Site: lower extremity Side (If applicable): left Size (cm): 1.5 Description: linear Depth: simple, single layer Local Anesthetic: Lidocaine 1% and Bupivicaine 0.5% Amount of anesthesia used (mL): 4 Pre-repair: wound explored, irrigated extensively and deep structures intact Skin layer closed with: nylon Size (cm): 4-0 Number of sutures: 4 Technique: simple, interrupted
[2020-01-22 23:27] VITALS: BP 134/89; PULSE 102; RESP 20; TEMP 36.8; O2SAT 98
== END 2020-01-22 22:20 | disposition home or self-care (01) ==
PROVIDERS: Emergency Provider Physician Assistant; PCP Family Medicine
DX: S91.012A Laceration without foreign body, left ankle, initial encounter (principal); W25.XXXA Contact with sharp glass, initial encounter; I10 Essential (primary) hypertension
CPT/HCPCS: 12001; 90471; 99284; 73610; 99281

== ENCOUNTER 2020-01-30 09:06 | Outpatient (CLI) | payer MEDICAID, SELFPAY ==
[2020-01-30 23:52] LABS: COVID-19 RT-PCR UVMMC Result Negative (Negative)
== END 2020-01-30 09:26 ==
PROVIDERS: PCP Family Medicine; Visit Provider Student in an Organized Health Care Education/Training Program
DX: Z01.818 Encounter for other preprocedural examination (principal); Z11.59 Encounter for screening for other viral diseases
CPT/HCPCS: U0003

== ENCOUNTER 2020-02-01 07:24 | Day surgery (SDC) | payer MEDICAID, SELFPAY ==
[2020-02-01] VITALS (9 sets, daily range): BP systolic 100–117; BP diastolic 53–80; PULSE 85–95; RESP 13–18; TEMP 36.6–37.2; O2SAT 93–99
[2020-02-01] MEDS: Lactated Ringers 1,000 ML 100 ML IV (07:51)
--- NOTE | 2020-02-01 09:22 | PDOC.DSDIS_ITS ---
Discharge Plan Disposition Patient Disposition: HOME Condition: Stable Discharge Details Reason For Visit: Left ankle surgery Attending Provider: Perico Park Primary Care Provider: Rachel Montenegro V Home Meds and New Rx's Prescriptions: New ibuprofen 800 mg tablet 800 mg PO BID PRN (Reason: pain, moderate) Qty: 60 RF: 0 aspirin 81 mg tablet,delayed release (DR/EC) 81 mg PO DAILY 30 Days Qty: 30 RF: 0 oxycodone 5 mg tablet 5 - 10 mg PO Q4H PRN (Reason: moderate to severe pain) Qty: 12 RF: 0 Continued fluticasone propionate [Flonase] 16 GM spray,suspension 50 mcg NS DAILY PRNRF: 0 levalbuterol tartrate [Xopenex HFA] 15 GM HFA aerosol inhaler 90 mcg Inhalation Q6H PRN RF: 0 loratadine [Claritin RediTabs] 10 mg tablet,disintegrating 10 mg PO DAILY PRNRF: 0 clonidine HCl [Catapres] 0.1 MG tablet 0.1 mg PO HS RF: 0 omeprazole 20 MG tablet,delayed release (DR/EC) 20 mg PO HS RF: 0 citalopram 40 MG tablet 40 mg PO HS RF: 0 clonazepam 0.5 MG tablet 0.5 mg PO DAILY RF: 0 diphenhydramine-acetaminophen [Tylenol PM Extra Strength] 25-500 mg Tablet 2 tab PO HS PRNRF: 0 losartan 100 mg tablet 100 mg PO DAILY RF: 0 ibuprofen 800 mg tablet 800 mg PO TID PRNRF: 0 diphenhydramine HCl [Benadryl] 25 MG capsule 25 mg PO Q6H PRNRF: 0 Discharge Instructions Additional Instructions: Surgery: Left ankle laceration wound exploration, irrigation debridement, tibial nerve, and posterior tibial artery repairs Activity: Non-weightbearing in splint at all times. Do not dorsiflex the ankle to protect the nerve repair. Recommend elevation at the level of the heart to reduce swelling and discomfort. A physical therapy prescription will be provide d separately in the office at follow-up if needed. Prescriptions: Aspirin 81 mg take 1 daily to prevent a blood clot for 1 month Ibuprofen 800 mg take 1 every 12 hours with a meal as needed for moderate pain Oxycodone 5 mg take 1-2 every 4-6 hours as needed for severe pain You may use [id number] Tylenol (acetaminophen) as needed for mild pain. These pain medications may be taken all at once or in different combinations as needed. Also, recommend Colace (docusate) as a stool softener as surgery and pain medicine cause constipation. Dressings: Leave splint and dressing in place until follow-up. Keep clean and dry at all times. Follow-up: 10-[address] Park Please call the office during business hours with any questions or concerns. Let us know right away if you develop any redness, drainage, fevers, chest pain, or trouble breathing. Do not drink alcohol or drive for at least 24 hours after anesthesia. Referrals: Perico Park MD [ [facility] STAFF PHYSICIAN] - Discharge Orders Discharge Orders: Discharge Order (Routine); Ordered 02/01/20 Ordered By: Perico Park DS: Diagnosis Discharge Diagnosis (1) Injury of tibial nerve: Status: Acute (2) Posterior tibial artery injury: Status: Acute (3) Laceration of ankle, left, complicated: Status: Acute
[2020-02-01] MEDS: ceFAZolin 2 GM/50 ML BAG IVPB (09:34)
--- NOTE | 2020-02-01 11:23 | W.PM.OP ---
Date of service: 02/01/20 Time of Service: 13:24 Operative Note Operative Note DATE OF PROCEDURE: 02/01/20 PRE-OP DIAGNOSIS: 1. Left complex posterior medial ankle laceration 2. Left tibial nerve laceration POST-OP DIAGNOSIS: other 1. Left complex posterior medial ankle laceration 2. Left subtalar joint traumatic arthrotomy 3. Left partial tibial nerve laceration 4. Left partial posterior tibial artery laceration PROCEDURE: 1. Left ankle wound exploration with irrigation and debridement of skin, subcutaneous tissues, deep fascia, and subtalar joint, CPT #[id number] 2. Left tibial nerve repair, CPT # 51916 3. Left posterior tibial artery repair, CPT # 38405 SURGEON: [place] [facility] INTERN: Rachel Delgado ANESTHESIA: GETA and local ESTIMATED BLOOD LOSS: 5 TOURNIQUET TIME: 0 COMPLICATIONS: None Patient was transported to: PACU Patient's condition: stable Implants: None Indications: Please see complete medical record for details. Findings: Traumatic laceration to the posterior medial ankle that continued deeply partially lacerating the approximately 25% of the posterior tibial artery, 50% of the tibial nerve, and the deep tibiocalcaneal ligament causing a traumatic subtalar arthrotomy. Intact posterior tib, flexor digitorum longus, and flexor hallucis longus tendons. Intact posterior tibial vein. Procedure Description: In the operating room, general anesthesia was induced. The patient was positioned supine on the operating room table. All bony prominences were well-padded. Preoperative antibiotics were administered. The left ankle was prepped and draped in the usual sterile fashion. The correct patient, procedure, and side of the procedure were all verified prior to incision. The left ankle and heel were positioned in full external rotation on a bump. The 4 cm transverse healing wound without surrounding erythema or drainage was opened sharply. Serous sticky joint fluid was encountered. There is no purulence. It was irrigated from the wound. The proximal margin of the excision dorsally was extended longitudinally a few centimeters. The distal margin of the excision posteriorly was extended longitudinally a few centimeters. Care was taken to obtain hemostasis. The skin flaps created from this Z incision were provisionally tacked to surrounding skin for retraction. Wound was irrigated lightly once again. The flexor retinaculum was identified cleared of overlying tissue. There was a traumatic defect in it centrally and distally. The retinaculum was safely freed from deep tissues elevated and sharply incised with a deep knife. 0 Vicryl dyed sutures were used to tag the dorsal and plantar margins of the retinaculum and also used for traction. Beneath the retinaculum, the posterior tibial vein was apparent and intact. There was a diminutive appearing adjacent more posterior muscle walled arterial looking structure that had a approximately 25% laceration from obliquely distal to proximal and posterior to anterior. There was no active bleeding. Immediately posterior was what appeared to be a 50% laceration of the dorsal aspect of the tibial nerve with approximately 5 mm of gapping dorsally and intact more posteriorly and plantarly. There was no arterial pulsation. These 2 vessels were gently freed from surrounding tissue using blunt forceps and dull retractors. The vein was felt to be clearly intact and mobilized dorsally. The the other structure was clearly the artery and did not have palpable or visible flow, but no active bleeding. It was provisionally retracted dorsally as well. Attention was then turned to mobilizing the tibial nerve again carefully working sequentially on all sides proximally and then distally it was freed from surrounding tissue. The nerve was then retracted posteriorly revealing the deepest extent of the arthrotomy through deeper deltoid and capsular structure with a defect of approximately 1 cm. There was some joint fluid drainage. At this time as this was a traumatic previously unrecognized arthrotomy decision was made to copiously irrigate the wound deeply with 1 L of normal saline starting and what was likely the subtalar joint and then working from deep to superficial through the soft tissues. Digital palpation more deeply and centrally in the wound revealed the flexor hallucis longus tendon which was uninvolved in the traumatic laceration and could be palpated moving with good integrity and strength with range of motion of the great toe. As the traumatic wound did not extend superficial or dorsal the tibial vein the posterior tibial tendon and flexor digitorum longus tendons were not on sheath more dorsally in the incision. Deep and superficial nonviable fat and connective tissues were carefully dissected away from the protected structures and removed from the wound. The arthrotomy was closed using 0 Vicryl in a buried interrupted fashion. The nerve was then inspected and freed up from the deep structures so the underside could be observed. The laceration again was about 50% from dorsal to plantar and from superficial to deep. With the foot in plantar flexion nerve had good excursion. With foot placed in neutral flexion the nerve still had good apposition and there was only tension when the ankle was brought into dorsiflexion. The foot and ankle were allowed to rest in approximately 15 degrees of plantarflexion. Blunt forceps were used to reapproximate the nerve ends in the most anatomic fashion possible using the intact margins help guide appropriate tissue repair and fascicle orientation. 6-0 Prolene on a tapered needle was used to perform an epineurial type partial tibial nerve repair. 5 interrupted simple sutures were placed. The initial ones were used to retract and roll over the nerve to place the more dorsal and deep repair sutures. The repair was inspected and the initial 2 sutures removed and replaced with 2 other simple interrupted sutures at a more appropriate greater level of tension. There was excellent apposition of this partial nerve epineurial repair. The ankle was ranged from plantar flexion to neutral and the nerve repair remained in excellent apposition. Attention was then turned back to the partially lacerated posterior tibial artery just above. There appeared to be the previously described 25% laceration adjacent to the nerve laceration. This side lumen access to the vessel was then gently opened and repaired with 4-0 Prolene in simple interrupted fashion. The artery began pulsating as it was being worked on to repair with only slight bleeding as the repair ties were being completed. The artery was then observed and appeared to be pulsating regularly. Distally a 1+ palpable pulse was appreciable. To finish repair 6-0 Prolene was used to add additional sutures to the outermost layers of the arterial laceration restoring it in an unkinked fashion to normal appearance. A sterile Doppler probe was brought in and placed over the repair site. Triphasic waveform was appreciated at across the arterial repair margin. Deep wound was copiously irrigated with normal saline. The nerve repair and arterial repair were inspected a final time and felt to be appropriate. The tag stitches were used to reapproximate the flexor retinaculum, which was repaired using 3-0 FiberWire in a buried interrupted [id number] fashion taking care to ensure there was not undue tension over the repair nerve and artery. Tag sutures were removed. Superficial tissues were irrigated normal saline. 0.25% bupivacaine containing epinephrine was infiltrated superficially about the wound incisions. The stay stitches and the skin flaps were removed and subcutaneous tissue was closed using 2-0 Monocryl in a buried interrupted fashion. Skin was closed using 3-0 nylon in horizontal mattress fashion placed in the knots on the dorsal aspect of the skin flaps. The wound and incisions were covered in Xeroform dry 4 x 4 gauze ABD and sterile soft roll. A posterior short leg splint was applied maintaining the foot and ankle in a resting 15 degrees plantarflexion to protect the repairs. The patient awoke from anesthesia without complication and was transferred to the recovery room in a stable condition.
[2020-02-01] MEDS: fentaNYL 100 MCG/2 ML VIAL IVP ×2 (13:10→13:30)
[2020-02-01] MEDS: oxyCODONE 5 mg/Acetaminophen 325 mg TAB 1 TAB PO (13:58)
== END 2020-02-01 15:00 | disposition home or self-care (01) ==
PROVIDERS: PCP Family Medicine; Visit Provider Student in an Organized Health Care Education/Training Program
PROC: (CPT 64857; principal; 2020-02-01 09:00)
DX: S85.172A Laceration of posterior tibial artery, left leg, initial encounter (principal); S84.02XA Injury of tibial nerve at lower leg level, left leg, initial encounter; S91.012A Laceration without foreign body, left ankle, initial encounter; S93.492A Sprain of other ligament of left ankle, initial encounter; W25.XXXA Contact with sharp glass, initial encounter; F17.210 Nicotine dependence, cigarettes, uncomplicated; K21.9 Gastro-esophageal reflux disease without esophagitis
CPT/HCPCS: 64857; 11044; 35226; E0114; J0690; J1100; J2405; J3010

== ENCOUNTER 2020-10-29 15:09 | Outpatient (REF) | payer MEDICAID, SELFPAY ==
[2020-11-02 07:16] LABS: Codeine Negative ng/mL (Cutoff: 25); Dihydrocodeine Negative ng/mL (Cutoff: 25); Hydrocodone Negative ng/mL (Cutoff: 25); Hydromorphone Negative ng/mL (Cutoff: 25); Morphine Negative ng/mL (Cutoff: 25); Naloxone Negative ng/mL (Cutoff: 25); Norhydrocodone Negative ng/mL (Cutoff: 25); Noroxycodone 269 ng/mL (Cutoff: 25); Noroxymorphone Negative ng/mL (Cutoff: 25); Opiates Interpretation Positive.
[2020-11-02 15:28] LABS: 2-OH-Ethyl-Flurazepam Negative ng/mL (Cutoff: 10); 7-NH-Clonazepam 29 ng/mL (Cutoff: 10); 7-NH-Flunitrazepam Negative ng/mL (Cutoff: 10); Alpha OH-Alprazolam Negative ng/mL (Cutoff: 10); Alpha-OH Midazolam Negative ng/mL (Cutoff: 10); Alpha-OH-Triazolam Negative ng/mL (Cutoff: 10); Alprazolam Negative ng/mL (Cutoff: 10); Benzodiazepines Interpretation Positive.; Chlordiazepoxide Negative ng/mL (Cutoff: 10); Clobazam Negative ng/mL (Cutoff: 10); Clonazepam Negative ng/mL (Cutoff: 10); Diazepam Negative ng/mL (Cutoff: 10); Flurazepam Negative ng/mL (Cutoff: 10); Lorazepam Negative ng/mL (Cutoff: 10); Midazolam Negative ng/mL (Cutoff: 10); N-Desmethylclobazam Negative ng/mL (Cutoff: 10); Prazepam Negative ng/mL (Cutoff: 10); Temazepam Negative ng/mL (Cutoff: 10); Triazolam Negative ng/mL (Cutoff: 10); Zolpidem Carboxylic acid Negative ng/mL (Cutoff: 10)
== END 2020-10-29 15:10 | disposition home or self-care (01) ==
LOC: NCHCN 15:09
PROVIDERS: PCP Family Medicine; Visit Provider Family Medicine
DX: Z79.899 Other long term (current) drug therapy (principal); Z51.81 Encounter for therapeutic drug level monitoring
CPT/HCPCS: 80361; 80362; 80346

== ENCOUNTER 2021-01-30 15:02 | Outpatient (REF) | payer MEDICAID, SELFPAY ==
[2021-01-30 19:33] LABS: HCT 45.3 % (40.0-50.0); HGB 14.7 g/dL (13.5-17.5); MCH 27.9 pg (27.0-33.0); MCHC 32.5 % (32.0-36.0); MPV 11.7 fL (8.0-11.0); Platelet Count 323 10^3/uL (130-400); RBC 5.27 10^6/uL (4.36-5.78); RDW 13.3 % (11.8-14.1); RDW-SD 42.1 fL; WBC 14.41 10^3/uL (4.4-10.8)
[2021-01-30 19:51] LABS: ESR 18 mm/hr (0-15)
[2021-01-30 20:10] LABS: Anion Gap 10.1 mmol/L (3-11); BUN 15 mg/dL (7-18); CO2 26.9 mmol/L (21.0-32.0); CREATININE 0.9 mg/dL (0.70-1.30); Chloride 102 mmol/L (98-107); Glucose 93 mg/dL (74-106); Potassium 5.1 mmol/L (3.5-5.1); Sodium 139 mmol/L (136-145)
[2021-01-30 20:29] LABS: C-Reactive Protein 3.04 mg/dL (0.0-0.3); Calcium 9.6 mg/dL (8.5-10.1)
[2021-02-04 12:15] LABS: 2-OH-Ethyl-Flurazepam Negative ng/mL (Cutoff: 10); 7-NH-Clonazepam 110 ng/mL (Cutoff: 10); Alpha OH-Alprazolam Negative ng/mL (Cutoff: 10); Alpha-OH Midazolam Negative ng/mL (Cutoff: 10); Alpha-OH-Triazolam Negative ng/mL (Cutoff: 10); Alprazolam Negative ng/mL (Cutoff: 10); Benzodiazepines Interpretation Positive.; Chlordiazepoxide Negative ng/mL (Cutoff: 10); Clobazam Negative ng/mL (Cutoff: 10); Clonazepam Negative ng/mL (Cutoff: 10); Diazepam Negative ng/mL (Cutoff: 10); Flurazepam Negative ng/mL (Cutoff: 10); Lorazepam Negative ng/mL (Cutoff: 10); Midazolam Negative ng/mL (Cutoff: 10); N-Desmethylclobazam Negative ng/mL (Cutoff: 10); Prazepam Negative ng/mL (Cutoff: 10); Temazepam Negative ng/mL (Cutoff: 10); Triazolam Negative ng/mL (Cutoff: 10); Zolpidem Carboxylic acid Negative ng/mL (Cutoff: 10)
[2021-02-04 13:07] LABS: Codeine Negative ng/mL (Cutoff: 25); Dihydrocodeine Negative ng/mL (Cutoff: 25); Hydrocodone Negative ng/mL (Cutoff: 25); Hydromorphone Negative ng/mL (Cutoff: 25); Morphine Negative ng/mL (Cutoff: 25); Naloxone Negative ng/mL (Cutoff: 25); Norhydrocodone Negative ng/mL (Cutoff: 25); Noroxycodone 1323 ng/mL (Cutoff: 25); Noroxymorphone 67 ng/mL (Cutoff: 25); Opiates Interpretation Positive.
== END 2021-01-30 15:03 | disposition home or self-care (01) ==
LOC: LBN 15:02
PROVIDERS: PCP Family Medicine; Visit Provider Family Medicine
DX: E78.5 Hyperlipidemia, unspecified (principal); I10 Essential (primary) hypertension; R82.5 Elevated urine levels of drugs, medicaments and biological substances; Z51.81 Encounter for therapeutic drug level monitoring
CPT/HCPCS: 80048; 80361; 80362; 80365; 85027; 85652; 80346; 86140

== ENCOUNTER 2021-05-06 12:29 | Outpatient (REF) | payer MEDICAID, SELFPAY ==
[2021-05-10 12:10] LABS: Codeine Negative ng/mL (Cutoff: 25); Dihydrocodeine 208 ng/mL (Cutoff: 25); Hydrocodone 431 ng/mL (Cutoff: 25); Hydromorphone 149 ng/mL (Cutoff: 25); Morphine Negative ng/mL (Cutoff: 25); Naloxone Negative ng/mL (Cutoff: 25); Norhydrocodone 1012 ng/mL (Cutoff: 25); Noroxycodone Negative ng/mL (Cutoff: 25); Noroxymorphone Negative ng/mL (Cutoff: 25); Opiates Interpretation Positive.
[2021-05-14 00:31] LABS: 2-OH-Ethyl-Flurazepam Negative ng/mL (Cutoff: 10); 7-NH-Clonazepam 36 ng/mL (Cutoff: 10); 7-NH-Flunitrazepam Negative ng/mL (Cutoff: 10); Alpha-OH Midazolam Negative ng/mL (Cutoff: 10); Alpha-OH-Triazolam Negative ng/mL (Cutoff: 10); Alprazolam Negative ng/mL (Cutoff: 10); Benzodiazepines Interpretation Positive.; Chlordiazepoxide Negative ng/mL (Cutoff: 10); Clobazam Negative ng/mL (Cutoff: 10); Clonazepam Negative ng/mL (Cutoff: 10); Diazepam Negative ng/mL (Cutoff: 10); Flurazepam Negative ng/mL (Cutoff: 10); Lorazepam Negative ng/mL (Cutoff: 10); Midazolam Negative ng/mL (Cutoff: 10); N-Desmethylclobazam Negative ng/mL (Cutoff: 10); Prazepam Negative ng/mL (Cutoff: 10); Temazepam Negative ng/mL (Cutoff: 10); Triazolam Negative ng/mL (Cutoff: 10); Zolpidem Carboxylic acid Negative ng/mL (Cutoff: 10)
== END 2021-05-06 12:30 | disposition home or self-care (01) ==
LOC: NCHCN 12:29
PROVIDERS: PCP Family Medicine; Visit Provider Family Medicine
DX: Z51.81 Encounter for therapeutic drug level monitoring (principal)
CPT/HCPCS: 80361; 80362; 80365; 80346

== ENCOUNTER 2021-05-29 13:12 | Outpatient (REF) | payer MEDICAID, SELFPAY ==
[2021-06-03 19:02] LABS: 2-OH-Ethyl-Flurazepam Negative ng/mL (Cutoff: 10); 7-NH-Clonazepam 18 ng/mL (Cutoff: 10); 7-NH-Flunitrazepam Negative ng/mL (Cutoff: 10); Alpha OH-Alprazolam Negative ng/mL (Cutoff: 10); Alpha-OH Midazolam Negative ng/mL (Cutoff: 10); Alpha-OH-Triazolam Negative ng/mL (Cutoff: 10); Alprazolam Negative ng/mL (Cutoff: 10); Benzodiazepines Interpretation Positive.; Chlordiazepoxide Negative ng/mL (Cutoff: 10); Clobazam Negative ng/mL (Cutoff: 10); Clonazepam Negative ng/mL (Cutoff: 10); Diazepam Negative ng/mL (Cutoff: 10); Flurazepam Negative ng/mL (Cutoff: 10); Lorazepam Negative ng/mL (Cutoff: 10); Midazolam Negative ng/mL (Cutoff: 10); N-Desmethylclobazam Negative ng/mL (Cutoff: 10); Prazepam Negative ng/mL (Cutoff: 10); Temazepam Negative ng/mL (Cutoff: 10); Triazolam Negative ng/mL (Cutoff: 10); Zolpidem Carboxylic acid Negative ng/mL (Cutoff: 10)
[2021-06-04 08:25] LABS: Codeine Negative ng/mL (Cutoff: 25); Dihydrocodeine Negative ng/mL (Cutoff: 25); Hydrocodone Negative ng/mL (Cutoff: 25); Hydromorphone Negative ng/mL (Cutoff: 25); Morphine Negative ng/mL (Cutoff: 25); Naloxone Negative ng/mL (Cutoff: 25); Norhydrocodone Negative ng/mL (Cutoff: 25); Noroxycodone 695 ng/mL (Cutoff: 25); Noroxymorphone 48 ng/mL (Cutoff: 25); Opiates Interpretation Positive.
== END 2021-05-29 13:13 | disposition home or self-care (01) ==
LOC: NCHCN 13:12
PROVIDERS: PCP Family Medicine; Visit Provider Family Medicine
DX: Z02.89 Encounter for other administrative examinations (principal)
CPT/HCPCS: 80361; 80362; 80365; 80346

== ENCOUNTER 2021-07-31 13:10 | Outpatient (REF) | payer MEDICAID, SELFPAY ==
[2021-08-07 16:14] LABS: 2-OH-Ethyl-Flurazepam Negative ng/mL (Cutoff: 10); 7-NH-Clonazepam Negative ng/mL (Cutoff: 10); 7-NH-Flunitrazepam Negative ng/mL (Cutoff: 10); Alpha OH-Alprazolam Negative ng/mL (Cutoff: 10); Alpha-OH Midazolam Negative ng/mL (Cutoff: 10); Alpha-OH-Triazolam Negative ng/mL (Cutoff: 10); Alprazolam Negative ng/mL (Cutoff: 10); Benzodiazepines Interpretation Negative.; Chlordiazepoxide Negative ng/mL (Cutoff: 10); Clobazam Negative ng/mL (Cutoff: 10); Clonazepam Negative ng/mL (Cutoff: 10); Diazepam Negative ng/mL (Cutoff: 10); Flurazepam Negative ng/mL (Cutoff: 10); Lorazepam Negative ng/mL (Cutoff: 10); Midazolam Negative ng/mL (Cutoff: 10); N-Desmethylclobazam Negative ng/mL (Cutoff: 10); Prazepam Negative ng/mL (Cutoff: 10); Temazepam Negative ng/mL (Cutoff: 10); Triazolam Negative ng/mL (Cutoff: 10); Zolpidem Carboxylic acid Negative ng/mL (Cutoff: 10)
== END 2021-07-31 13:11 | disposition home or self-care (01) ==
LOC: NCHCN 13:10
PROVIDERS: PCP Family Medicine; Visit Provider Family Medicine
DX: Z02.89 Encounter for other administrative examinations (principal)
CPT/HCPCS: 80346

== ENCOUNTER 2021-09-22 11:07 | Outpatient (CLI) | payer MEDICAID, SELFPAY ==
--- NOTE | 2021-09-22 08:38 | DI.RAD_ITS ---
Exam(s) XR KNEE RT 2V AP,LAT EXAM: XR KNEE RT 2V AP,LAT CLINICAL HISTORY: follow up. TECHNIQUE: 2D digital imaging was performed. COMPARISON: CR XR KNEE RT 2V AP,LAT from 06/13/2019 FINDINGS: Position alignment of the components of the prosthesis remain stable. Increased density in the later al tibial plateau is unchanged as is subtle sub arthroplasty the linear lucency in the lateral tibial plateau, also unchanged. Seeding of the femoral component appears unchanged. IMPRESSION: DATA REPOSITORY: RADIATION DOSE DELIVERED:
== END 2021-09-22 11:08 | disposition home or self-care (01) ==
LOC: DIORS 11:07
PROVIDERS: PCP Family Medicine; Referring Provider Family Medicine; Visit Provider Physician Assistant Surgical
DX: M25.561 Pain in right knee (principal); T84.84XA Pain due to internal orthopedic prosthetic devices, implants and grafts, initial encounter; Z96.651 Presence of right artificial knee joint
CPT/HCPCS: 73560

== ENCOUNTER 2021-10-10 00:12 | Outpatient (CLI) | payer MEDICAID, SELFPAY ==
--- NOTE | 2021-10-10 07:00 | DI.NM_ITS ---
Exam(s) NM BONE SCAN 3 PHASE EXAM: WI BONE SCAN 3 PHASE CLINICAL HISTORY: concern for component loosening,[employer],T84.84XA. TECHNIQUE: Injected Dose: 25 mCi Tc-99m MDP COMPARISON: CR XR KNEE RT 2V AP,LAT from 06/13/2019 FINDINGS: Perfusion: Symmetric. Blood Pool: There is increased radiotracer uptake at the prosthetic-bone interface at the proximal ti aleks. There is also increased radiotracer uptake at the patella femoral articulation. Delayed: There is increased radiotracer uptake at the prosthetic-bone interface at the proximal tibia . There is also increased radiotracer uptake at the patellofemoral articulation. There is symmetric activity in the shoulders bilaterally which is likely degenerative. Normal activi ty is seen in the kidneys and urinary bladder. There is a single focus of increased activity in the distal right tibia. This is nonspecific. Correlation with plain films is recommended. IMPRESSION: 1. Increased radiotracer uptake seen on the blood pool in the delayed images at the prostatic-bone in terface of the proximal tibia. This can be seen with loosening of the tibial component of the prosth esis. 2. Increased radiotracer uptake at the patellofemoral articulation. The possibility of loosening of the femoral component cannot be excluded. DATA REPOSITORY:
== END 2021-10-10 00:32 ==
PROVIDERS: PCP Family Medicine; Visit Provider Physician Assistant Surgical
DX: T84.84XA Pain due to internal orthopedic prosthetic devices, implants and grafts, initial encounter (principal)
CPT/HCPCS: 78315

== ENCOUNTER 2021-10-10 03:21 | Outpatient (CLI) | payer MEDICAID, SELFPAY ==
[2021-10-10 10:35] LABS: HCT 45.9 % (40.0-50.0); HGB 15.4 g/dL (13.5-17.5); MCH 28.2 pg (27.0-33.0); MCHC 33.6 % (32.0-36.0); MCV 84.1 fL (80-95); MPV 10.5 fL (8.0-11.0); Platelet Count 291 10^3/uL (130-400); RBC 5.46 10^6/uL (4.36-5.78); RDW 13.2 % (11.8-14.1); RDW-SD 40.2 fL; WBC 12.31 10^3/uL (4.4-10.8)
[2021-10-10 10:37] LABS: ESR 7 mm/hr (0-15)
[2021-10-10 12:04] LABS: Anion Gap 10.3 mmol/L (3-11); BUN 11 mg/dL (7-18); C-Reactive Protein 0.41 mg/dL (0.0-0.3); CO2 24.7 mmol/L (21.0-32.0); Calcium 9.4 mg/dL (8.5-10.1); Chloride 104 mmol/L (98-107); Glucose 110 mg/dL (74-106); Potassium 4.4 mmol/L (3.5-5.1); Sodium 139 mmol/L (136-145)
== END 2021-10-10 03:22 | disposition home or self-care (01) ==
LOC: LBO 03:22
PROVIDERS: PCP Family Medicine; Visit Provider Student in an Organized Health Care Education/Training Program
DX: T84.84XA Pain due to internal orthopedic prosthetic devices, implants and grafts, initial encounter (principal); Z01.818 Encounter for other preprocedural examination; Z96.651 Presence of right artificial knee joint
CPT/HCPCS: 36415; 80048; 85027; 85652; 78315; 86140

== ENCOUNTER 2021-10-24 16:30 | Outpatient (REF) | payer MEDICAID, SELFPAY ==
[2021-11-01 12:40] LABS: 2-OH-Ethyl-Flurazepam Negative ng/mL (Cutoff: 10); 7-NH-Clonazepam 104 ng/mL (Cutoff: 10); 7-NH-Flunitrazepam Negative ng/mL (Cutoff: 10); Alpha OH-Alprazolam Negative ng/mL (Cutoff: 10); Alpha-OH Midazolam Negative ng/mL (Cutoff: 10); Alpha-OH-Triazolam Negative ng/mL (Cutoff: 10); Alprazolam Negative ng/mL (Cutoff: 10); Benzodiazepines Interpretation Positive.; Chlordiazepoxide Negative ng/mL (Cutoff: 10); Clobazam Negative ng/mL (Cutoff: 10); Clonazepam Negative ng/mL (Cutoff: 10); Diazepam Negative ng/mL (Cutoff: 10); Flurazepam Negative ng/mL (Cutoff: 10); Lorazepam Negative ng/mL (Cutoff: 10); Midazolam Negative ng/mL (Cutoff: 10); N-Desmethylclobazam Negative ng/mL (Cutoff: 10); Prazepam Negative ng/mL (Cutoff: 10); Temazepam Negative ng/mL (Cutoff: 10); Triazolam Negative ng/mL (Cutoff: 10); Zolpidem Carboxylic acid Negative ng/mL (Cutoff: 10)
[2021-11-01 13:24] LABS: Codeine Negative ng/mL (Cutoff: 25); Dihydrocodeine Negative ng/mL (Cutoff: 25); Hydrocodone Negative ng/mL (Cutoff: 25); Hydromorphone Negative ng/mL (Cutoff: 25); Morphine Negative ng/mL (Cutoff: 25); Naloxone Negative ng/mL (Cutoff: 25); Norhydrocodone Negative ng/mL (Cutoff: 25); Noroxycodone 1460 ng/mL (Cutoff: 25); Noroxymorphone 115 ng/mL (Cutoff: 25); Opiates Interpretation Positive.
== END 2021-10-24 16:31 | disposition home or self-care (01) ==
LOC: NCHCN 16:30
PROVIDERS: PCP Family Medicine; Visit Provider Family Medicine
DX: Z02.89 Encounter for other administrative examinations (principal)
CPT/HCPCS: 80361; 80362; 80365; 80346

== ENCOUNTER 2021-10-27 02:48 | Outpatient (CLI) | payer MEDICAID, SELFPAY ==
[2021-10-27 11:33] LABS: Source Nasal/Nares
[2021-10-28 00:05] LABS: COVID-19 PCR Negative (Negative)
== END 2021-10-27 02:49 | disposition home or self-care (01) ==
PROVIDERS: PCP Family Medicine; Visit Provider Student in an Organized Health Care Education/Training Program
DX: Z20.822 Contact with and (suspected) exposure to COVID-19 (principal); Z01.818 Encounter for other preprocedural examination
CPT/HCPCS: 87635

== ENCOUNTER 2021-10-29 11:41 | Inpatient (IN) | payer MEDICAID, SELFPAY ==
[2021-10-29] VITALS (11 sets, daily range): BP systolic 87–124; BP diastolic 55–88; PULSE 72–101; RESP 12–18; TEMP 35.7–36.9; O2SAT 94–99; BMI 32.1
--- NOTE | 2021-10-29 06:22 | ANES.PREOP_ITS ---
General Info Date of Service Date Performed: 10/29/21 Height: 5 ft 11 in Weight: 104.326 kg Body Mass Index (BMI): 32.1 Surgical Procedure: Operation Date: 10/29/21 11:25 Proposed Procedure Side Surgeon p Knee Total Revision Right Rasheed Sinha MD Meds Allergies and Home Medications Allergies Allergy/AdvReac Type Severity Reaction Status Date / Time simvastatin Allergy Intermediate Unknown Unverified 10/29/21 09:36 gabapentin AdvReac Intermediate Psychosis Verified 10/29/21 09:36 lisinopril AdvReac Mild Cough Verified 10/29/21 09:36 Home Medication Medication Instructions Recorded clonidine HCl 0.1 mg tablet 0.1 mg PO HS 10/10/12 (Catapres) citalopram 40 mg tablet 40 mg PO HS 04/29/13 clonazepam 0.5 mg tablet 0.5 mg PO DAILY 05/03/13 fluticasone propionate 50 50 mcg NS DAILY PRN spray 10/23/14 mcg/actuation nasal spray,suspension (Flonase) diphenhydramine 25 2 tab PO HS PRN 06/29/18 mg-acetaminophen 500 mg tablet (Tylenol PM Extra Strength) loratadine 10 mg disintegrating 10 mg PO DAILY PRN tab-cap 02/08/19 tablet (Claritin RediTabs) losartan 100 mg tablet 100 mg PO DAILY 01/30/20 diphenhydramine HCl 25 mg capsule 25 mg PO Q6H PRN 02/01/20 (Benadryl) ibuprofen 800 mg tablet 800 mg PO TID PRN 02/01/20 albuterol sulfate 90 mcg/actuation 2 puff INHALATION Q6H PRN 08/05/21 aerosol inhaler (ProAir HFA) pantoprazole 40 mg tablet,delayed 40 mg PO HS 08/05/21 release trazodone 50 mg tablet 25 - 50 mg PO QHS PRN tab 08/19/21 tramadol 50 mg tablet 50 - 100 mg PO QHS PRN #20 tab 09/22/21 Current Visit Medications: Current Medications Generic Name Dose Route Start Last Admin Trade Name Freq PRN Reason Stop Dose Admin Acetaminophen 1,000 mg 10/29/21 06:00 Acetaminophen 500 Mg Tab PO 10/29/21 23:59 PREOP [place] Celecoxib 400 mg 10/29/21 06:00 Celecoxib 200 Mg Cap PO 10/29/21 23:59 PREOP [place] Tranexamic Acid 1,000 mg/ 60 mls @ 360 mls/hr 10/29/21 06:00 Sodium Chloride IV 10/29/21 18:00 PREOP [place] Tranexamic Acid 1,000 mg/ 60 mls @ 360 mls/hr 10/29/21 06:00 Sodium Chloride IV 10/29/21 18:00 DIRECTED [place] Ringer's Solution 1,000 mls @ 80 mls/hr 10/29/21 06:00 IV 11/27/21 23:59 INFUSION RICO Cefazolin Sodium/Dextrose 2 gm in 50 mls @ 100 mls/hr 10/29/21 06:00 Ancef Duplex IVPB 11/27/21 23:59 PREOP [facility] IV Miscellaneous Supplies 1 each 10/29/21 06:00 Iv Access IV 11/27/21 23:59 DIRECTED [place] Sodium Chloride 0 ml 10/29/21 06:00 Normal Saline Flush 10 Ml Syr IV 11/27/21 23:59 PRN PRN Sodium Chloride 0 ml 10/29/21 06:00 Normal Saline 10 Ml Vial IJ 11/27/21 23:59 DIRECTED PRN Sterile Water 0 ml 10/29/21 06:00 Water,Injection,Sterile 10 Ml Vial IJ 11/27/21 23:59 DIRECTED PRN PFSH Active Problems Active Problems: Problem Status Onset Code Painful total knee replacement, right T84.84XA, Z96.651 Painful orthopaedic hardware T84.84XA No-show for appointment Z53.29 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 01/22/20 S84.02XA Laceration of ankle, left, complicated 01/22/20 S91.012A Posterior tibial artery injury 01/22/20 S85.169A Anxiety F41.9 Intraosseous ganglion M67.49 Medical History Medical History Anxiety disorder Arthralgia Bilateral elbow joint pain Bone lesion Bright red blood per rectum Cervical spinal stenosis Cervicalgia Chronic pain of right knee Contusion of lung, unilateral, sequela Diverticulosis of colon Encounter for smoking cessation counseling Erectile dysfunction History of tobacco use Hyperlipidemia Hypertension Insomnia disorder related to known organic factor Lesion of left tibial nerve Lumbar radiculopathy Medication management Pain of right sacroiliac joint Paresthesias Pelvic pain Skin lesion Stye Traumatic rupture of symphysis pubis Urinary frequency Surgical History Surgical History H/O arthroscopy of right knee right knee w/ partial meniscectomy in 2007 by CDDx2. Other arthroscopies right knee since 2007 x 2 History of knee replacement procedure of right knee Tobacco Smoking/Tobacco Use Status: Current every day Tobacco Type: cigarettes Smoking cigarettes per day: 30 Years smoked: 30 Alcohol Alcohol Intake: never Substance Use Substance use: Never Substance use type: does not use Vital Signs and Lab Results Vital Signs Most Recent Vital Signs in EMR: Temp Pulse Resp BP Pulse Ox 36.9 C 75 18 117/88 97 10/29/21 09:56 10/29/21 09:56 10/29/21 09:56 10/29/21 09:56 10/29/21 09:56 Lab Results Blood Type / Crossmatch: No Data to Display Complete Blood Count: White Blood Count 12.31 10^3/uL (4.4-10.8) H 10/10/21 10:28 10/10/21 Red Blood Count 5.46 10^6/uL (4.36-5.78) 10/10/21 10:28 10/10/21 Hemoglobin 15.4 g/dL (13.5-17.5) 10/10/21 10:28 10/10/21 Hematocrit 45.9 % (40.0-50.0) 10/10/21 10:28 10/10/21 Platelet Count 291 10^3/uL (130-400) 10/10/21 10:28 10/10/21 Complete Metabolic Panel: Sodium Level 139 mmol/L (136-145) 10/10/21 10:28 10/10/21 Potassium Level 4.4 mmol/L (3.5-5.1) 10/10/21 10:28 10/10/21 Chloride Level 104 mmol/L (98-107) 10/10/21 10:28 10/10/21 Carbon Dioxide Level 24.7 mmol/L (21.0-32.0) 10/10/21 10:28 10/10/21 Blood Urea Nitrogen 11 mg/dL (7-18) 10/10/21 10:28 10/10/21 Creatinine 1.0 mg/dL (0.70-1.30) 10/10/21 10:10/10/21 Estimated GFR/1.73 m2 >= 60.00 (mL/min/1.73m2) 10/10/21 10:28 10/10/21 Calcium Level 9.4 mg/dL (8.5-10.1) 10/10/21 10:28 10/10/21 Glucose Level 110 mg/dL (74-106) H 10/10/21 10:28 10/10/21 C-Reactive Protein 0.41 mg/dL (0.0-0.3) H 10/10/21 10:28 10/10/21 Liver Function Panel: No Data to Display Coagulation Panel: No Data to Display Cardiac Panel: No Data to Display Arterial Blood Gas: No Data to Display Venous Blood Gas: No Data to Display Pancreas Panel: No Data to Display Thyroid Panel: No Data to Display Infectious Disease: Coronavirus (COVID-19)(PCR) Negative (Negative) 10/27/21 08:31 10/27/21 Coronavirus 2019 Source Nasal/Nares 10/27/21 08:31 10/27/21 Blood Cultures: No Data to Display Toxicology Panel: No Data to Display Anesthesia Assessment and Plan Anesthesia History Personal History: No History of Anesthesia Complications Family History: No Family History of Anesthesia Complications Exercise Tolerance Exercise Tolerance: Metabolic Equivalents>4 Cardiac & Pulmonary Exam Cardiac Exam: Normal S1/S2 Heart Sounds Pulmonary Exam: Clear Bilateral Breath Sounds Implantable Cardiac Device Does patient have a Pacemaker or an ICD?: No Airway Exam Known Difficult Airway: No Mallampati Class: 2 Mouth Opening: Normal (> 3cm) Thyromental Distance: Greater than 3 cm Neck Range of Motion: Full ROM Neck Circumference: Normal Teeth Condition: Edentulous ASA Classification ASA Score: ASA 2 Emergency Case?: No NPO Status NPO Status: NPO Clears >2 hours, Solids >8 hours Anesthesia Plan Resuscitation Status: Full Code Anesthesia Technique: Spinal Anesthesia Airway Planned: Natural Airway Monitors Used: Standard Monitors Preoperative Comments:: 45 yo male for revision right TKA. Sig PMHx: anxiety (citalopram/clonazepam), asthma (albuterol), GERD (pantoprazole), HTN (losartan) Previous Anes: LMA 5, LMA 4,
[2021-10-29] MEDS: Acetaminophen 500 MG TAB 1000 MG PO ×4 (09:49→19:33)
[2021-10-29] MEDS: Celecoxib 200 MG CAP 400 MG PO (09:50)
[2021-10-29] MEDS: Lactated Ringers 1,000 ML 80 ML IV ×3 (10:25→16:26)
--- NOTE | 2021-10-29 11:09 | W.ANESNERVE ---
Nerve Block Single Injection Procedure Date and Time Date Performed: 10/29/21 Procedure Start: 11:01 Location Where Procedure Performed Procedure Location: Day Surgery Unit Reason Performed: Postoperative Analgesia Requesting Provider: Rasheed Sinha Timeout Performed Timeout Performed: Yes Monitoring Used ECG, Blood Pressure and SpO2 Sterility Sterility: Hand Hygiene, Surgical Cap and Surgical Mask Sedation Given During Procedure Sedation Given (Indicate Dose Given): Versed IV Dose:: 2 mg Patient Mental Status Patient Mental Status: Awake Nerve Block 1st Nerve Block: Laterality: Right Block Type: Adductor Canal Needle / Catheter Used: 100mm SonoPlex II Local Anesthetic Bolus (Indicate Dose Given): Lidocaine used for local infiltration of skin, Injected in 3-5ml increments after negative blood aspiration and Bupivacaine 0.375% Dose:: 10 mL Additives (Indicate Dose Given): None Ultrasound: Sterile probe cover and gel used Ultrasound Image Saved?: Yes Nerve Stimulator: Not Used Paresthesia: None Procedure Tolerated: No Complications Procedure Outcome: Successful Performed By: Adithya Lozano
[2021-10-29] MEDS: ceFAZolin 2 GM/50 ML BAG IVPB (11:54)
[2021-10-29] MEDS: Bupivacaine 0.25% Pres-Free 30 ML VIAL (14:08)
[2021-10-29] MEDS: Normal Saline 20 ML VIAL (14:08)
[2021-10-29] MEDS: Ketorolac 30 MG/ML VIAL (14:08)
--- NOTE | 2021-10-29 15:35 | DI.RAD_ITS ---
Exam(s) XR KNEE RT 2V AP,LAT EXAM: XR KNEE RT 2V AP,LAT CLINICAL HISTORY: s/p revision R TKA. TECHNIQUE: 2D digital imaging was performed. COMPARISON: CR XR KNEE RT 2V AP,LAT from 09/22/2021 FINDINGS: Portable views-AP and lateral Postop images, compared to 09/22/2021. There has been revision both components of the knee prosthesis. Now present are longer stem componen ts. No fracture or loosening evident. IMPRESSION: DATA REPOSITORY: RADIATION DOSE DELIVERED:
--- NOTE | 2021-10-29 15:36 | W.ANESPOSTOP ---
Postoperative Evaluation Date, Time and Location Date Performed: 10/29/21 Time Performed: 15:36 Patient Location: PACU Vital Signs Most Recent Imported Vital Signs: Most Recent Vital Signs Temp Pulse Resp BP Pulse Ox 36.5 C 72 17 100/62 99 10/29/21 15:30 10/29/21 15:30 10/29/21 15:30 10/29/21 15:30 10/29/21 15:30 Pain Score Most Recent Pain Score: Most Recent Pain Score Pain Level 0 10/29/21 11:01 Assessment Mental Status: Awake (Alert & Oriented to Patient Baseline) Airway and Respiratory Function: Patent airway with normal (patient baseline) respiratory exam Cardiovascular Function: Hemodynamically Stable Hydration Status: Adequately Hydrated Nausea & Vomiting: No Nausea or Vomiting Pain: Pain is tolerable per patient Peripheral Nerve Block: Regional nerve block not resolved at time of post operative discharge
[2021-10-29] MEDS: ceFAZolin 1 GM/50 ML BAG IVPB (17:44)
[2021-10-29] MEDS: Normal Saline Flush 10 ML SYR IV (17:45)
[2021-10-29] MEDS: Ketorolac 15 MG/ML VIAL IVP (17:45)
[2021-10-29] MEDS: HYDROmorphone 2 MG/ML SYR 1 MG IVP (17:45)
[2021-10-29] MEDS: Aspirin E.C. 81 MG TABEC PO (19:34)
--- NOTE | 2021-10-29 19:39 | W.PM.OP ---
Date of service: 10/29/21 Time of Service: 15:00 Operative Note Operative Note DATE OF PROCEDURE: 10/29/21 PRE-OP DIAGNOSIS: Right Knee Prosthesis Loosening POST-OP DIAGNOSIS: same PROCEDURE: Revision Right Knee Replacement with Patellar Resurfacing SURGEON: Rasheed Sinha CULINARY SPECIALIST: Jeffery Haro ANESTHESIA TYPE: General LMA/ETT Refer to Anesthesia Record ESTIMATED BLOOD LOSS: 150 PATHOLOGY: none sent COMPLICATIONS: None Patient was transported to: PACU Patient's condition: stable Implants: 1. Depuy Attune Revision Tibial Tray, Size 6 2 Depuy Attune 37mm Tibial Sleeve 3. Depuy Attune [id number] Cementless Tibial Stem 4. Depuy Attune Revision Femoral Component, Size 6, with 4mm posterolateral augment 5. Depuy Attune [id number] Cementless Stem 6. Depuy Attune 35mm Patella Component Indications: I have seen Satish in clinic for symptoms of right TKA loosening, confirmed with radiographic findings. Satish has exhausted nonoperative methods and was having significant limitations in daily function and desired better function and less pain. I discussed the technical details of revision knee replacement. I explained the risks of the procedure to include, but not limited to, bleeding, infection, pain, stiffness, fracture, damage to nerves and vessels, damage to muscles and tendons, loosening, need for repeat procedure, blood clot and cardiopulmonary demise. Despite these risks, Satish elected to proceed. Findings: There was gross loosening of the tibial component. There was some loosening of the femoral component. The patella was previously not resurfaced but did show wear on the cartilage and thus I replaced that. Procedure Description: Satish was greeted in the preoperative holding area where the correct side was identified and marked. The consent was reviewed with the patient and signed. The history and physical was updated. All questions were answered. Preoperative mediacations were administered: Acetaminophen 1000mg, Celebrex 400mg. An adductor canal block was then administered by the anesthesia team in the PACU. Satish was taken back to the operating room. A general anesthestic was then administered. The patient was placed into the supine position on the operating room table. A nonsterile tourniquet was placed high onto the leg but only used for cementing. Posts were placed for positioning during the procedure. All bony prominences were well padded. Prophylactic antibiotics in the form of Cefazolin were administered. 1g of Tranxemic Acid was given intravenously within 30 minutes of incision. The right leg was then prepped with Chloraprep and draped in a standard fashion with impervious stockinette. A second prep with Chloraprep was performed prior to application of Iodine impregnated skin protection. A timeout to confirm correct identity, side and site, procedure, allergies, anesthesia, and medical concerns was performed. With the knee in some flexion, the previous midline incision was incised overlying the knee. Full thickness skin flaps were raised once the extensor mechanism was encountered. These were raised medially and laterally. Any bleeding was controlled with electrocautery. A medial parapatellar arthrotomy was then performed. Bleeding was cauterized. This was extended proximally distally for adequate exposure. An aggressive synovectomy was then performed. There is no sign of purulence. No abnormalfluid. No sign of infection. After the synovectomy was completed. I continued to release attachments between the patellar tendon and the anterior lateral aspect of the joint surface. A medial subperiosteal peel was then performed. There was dense soft tissue the posterior aspect of the knee. Using electrocautery, the capsular tissues were released and recessed from around the tibia for better access. This was continued with the knee in a flexed position. I also continued this around the femoral implant. With the knee in flexion, I used an osteotome to cut the peg of the polyethylene and remove this. The knee was brought back into extension and the patella was evaluated which showed signs of wear. Therefore, I have proceeded with patellar resurfacing. Using the patellar clamp the patella was resected to a flat surface with about 15 mm of bone remaining. A size 35 mm patella appeared to fit and the lug holes were drilled. The knee was brought back into flexion. There was clearly obvious by moving the leg in the flexion without the polyethylene at the tibial component was loose due to fluid seen escaping between the cement and tibial surface. Starting with the femur, I used a chisel to break the surface between the implant and the cement. The lateral side was quite easy. There was some attachments medially. After this was done around the periphery of the femoral component, a bone tamp was used to lightly tapped the femoral component off. There is minimal bone attachments seen onto the femoral component. There was some loss of bone laterally with some cystic change in the lateral femur. This was also true anteriorly where there is a cystic structure seen involving every the anterior flange which violated into the canal. Attention was then turned to the tibia. Similarly, used chisels to work around the edges of the tibia to ensure that it was fully loose which it was. There is no significant attachment of the tibia to any underlying cement. Using an osteotome, I was able to remove the tibia. However, full exposure of the tibia was difficult which makes extraction challenging. However, this was performed without fracture. Cement was then removed from the bony surface of the femur and the tibia. The tibial plug was able to be removed. There is notable irregularity of the lateral tibial surface with remaining cystic structure still present even despite previous surgery to bone graft the cystic structures. Any soft tissue from the bony surface was also removed and resected until there is only bone remaining. Starting with the tibia, I began reaming the canal. This was reamed up to a size 14 mm reamer where we had excellent purchase. A broach was then utilized for a sleeve. This was done up to a size 37 mm sleeve. With the sleeve in appropriate position I then used that surface to cut the top of the tibia in plane. This cut just skin the surface of the tibia removing only 1 mm or less anteriorly with a few more millimeters posteriorly and laterally. With this was completed a trial component was inserted. Tibial baseplate was rotated appropriately and locked into position. Turning the attention to the femur, the intramedullary space was reamed. This was done up to a size 14 mm reamer with excellent cortical purchase. With this in position the distal femoral cutting guide was placed and approximately 2 mm was taken off of the distal femur to freshen up the cut for any irregularities. Once again, there is some irregularity of the lateral femur with excellent bone on the medial side. The cutting guide was then placed with a 14 mm stem. A spacer block was inserted into the extension space which measured proximate 12 mm. In flexion the gap was also noted to be good at 12 mm and rotation was assessed and set. The anterior cut was also checked which similarly was in a good position. Anterior cut was then performed. Posterior cuts were performed next. Medially, no augment was necessary. However, laterally a 4 mm augment was cut. The anterior and posterior chamfers were cut next followed by the femoral notch. The notch cut was performed with a reciprocating saw. These components were then removed. Everything was inspected to make sure cuts were completed there is no excess bone. Trial components were placed. This had excellent stability in flexion and extension. The size 6 tibia allowed excellent coverage. Therefore, on the back table all the necessary components were opened. 2 batches of medium viscosity cement are also open. The periosteal and capsular tissues, especially posteriorly, around the knee were then systematically injected with a periarticular cocktail consisting of 50cc 0.25% Marcaine, 30mg Ketorolac, 20cc of Exparal and 50cc of injectable saline. The tourniquet was then inflated to 275mmHg. The knee was thoroughly irrigated with a pulse lavage and dried. On the back table, with the implants opened, the cement was mixed. 2 batches of medium viscosity cement were prepared with vacuum assistance. After the cement was ready a small amount was placed on to the back side of the tibial component but not on the sleevel. A small amount was placed onto the posterior flange of the femur. Cement was manual pressurized and impregnated into the cut surface of the tibia. The tibial component was then inserted into the cut surface and impacted into position. During this process the sleeves seem to engage early sitting up about 2 to 3 mm. This was inspected and did not seem to be going in any particular angle. However, given how much it had already been impacted it was unlikely be able to be removed. Therefore, excess cement was removed and the component was reimpacted. Again, excess cement was removed and our attention was then turned to the femur. The femoral cut surface was once again dried and cement was manually impacted into the cut surface. The femoral component was impacted. Excess cement was removed. It was ensured to be down against the cut surface. The trial polyethylene was then inserted and the leg was brought out into full extension for the duration of the cement curing process, approximately 18min. Cement was lastly manually impacted into the cut surface of the patella and the patellar button was clamped into position and held. During this process attention was turned to the gutters of the knee and for all interfaces for any excess cement. While the cement was hardening, the knee was irrigated with Surgiphor betadine solution. This was allowed to sit in the knee for 3 minutes. Afterwards, it was irrigated out with normal saline. After the cement had finally cured, approximately 18min, the clamp was removed from the patella and the knee was taken through range of motion. A size 10mm polyethylene component provided the best range of motion and stability with less than 2mm gapping with medial and lateral stress and full extension without significant hyperextension. The patella was tracking with a no-thumbs technique. The trial poly was removed and once again the knee was checked for any loose, excess, or errant cement. The poly component was then inserted after cleaning and drying the tibial tray. The capsule was then reapproximated with a No. 1 Vicryl at multiple locations. The capsule was finally closed with a No. 2 Stratafix, barbed suture. The tourniquet was then released and the arthrotomy appeared watertight without significant bleeding. The second dose of 1g TXA was started. Deep tissues were then reapproximated with 0 Vicryl and 2-0 Vicryl. The skin was closed with a running 3-0 Monocryl in a subcuticular fashion. This was reinforced with skin glue. A Mepilex silver dressing was applied along with a [id number] DEEPAK wrap. A CryoCuff was applied. Satish was transferred to the hospital bed without difficulty an suffering no apparent complication. Satish has a good prognosis. Physical therapy will start today and without restrictions, weight-bearing as tolerated. X-rays will be obtained in the PACU. Aspirin 81mg BID will be used for DVT prophylaxis.
[2021-10-29] MEDS: cloNIDine 0.1 MG TAB PO (21:28)
[2021-10-29] MEDS: Citalopram 20 MG TAB 40 MG PO (21:28)
[2021-10-29] MEDS: Pantoprazole 40 MG TABCR PO (21:28)
[2021-10-30] MEDS: Ketorolac 15 MG/ML VIAL IVP ×2 (01:25→06:19)
[2021-10-30] MEDS: oxyCODONE 5 MG TAB PO ×2 (01:27→10:38)
[2021-10-30] MEDS: ceFAZolin 1 GM/50 ML BAG IVPB ×2 (01:28→10:35)
[2021-10-30] MEDS: Normal Saline Flush 10 ML SYR IV ×2 (01:29→06:19)
[2021-10-30 04:30] VITALS: BP 108/66; PULSE 80; RESP 18; TEMP 36.6; O2SAT 95
[2021-10-30 07:05] LABS: HCT 37.6 % (40.0-50.0); HGB 12.3 g/dL (13.5-17.5); MCHC 32.7 % (32.0-36.0); MCV 85.5 fL (80-95); MPV 11.2 fL (8.0-11.0); Platelet Count 277 10^3/uL (130-400); RDW 13.2 % (11.8-14.1); RDW-SD 41.6 fL
[2021-10-30 07:08] LABS: WBC 26.49 10^3/uL (4.4-10.8)
[2021-10-30 07:19] LABS: BUN 19 mg/dL (7-18); Calcium 8.3 mg/dL (8.5-10.1); Chloride 105 mmol/L (98-107); Glucose 130 mg/dL (74-106); Potassium 4.5 mmol/L (3.5-5.1); Sodium 138 mmol/L (136-145)
--- NOTE | 2021-10-30 07:30 | W.PM.DS.N ---
DS: Diagnosis Discharge Diagnosis (1) Painful total knee replacement, right: Status: Acute Discharge Plan Disposition Patient Disposition: HOME Condition: Good Discharge Details Reason For Visit: Right Prosthetic Knee Loosening Admit Date/Time: 10/29/21 11:41 Admit Provider: Rasheed Sinha Attending Provider: Rasheed Sinha Primary Care Provider: Rachel Montenegro V Hospital Course Hospital Course: Patient was admitted to the medical/surgical floor following the procedure. The surgery was tolerated well without any notable medical, surgical, or anesthetic complications. Mobilization began postoperatively. He was voiding spontaneously. Vitals were stable. Physical therapy worked with the patient and was cleared for discharge home. No acute medical issues. Pain was controlled on oral regimen. He states that he feels better when weight-bearing now than he did prior to surgery. Home Meds and New Rx's Prescriptions: New acetaminophen 500 mg tablet 1,000 mg PO Q8H PRN (Reason: pain) Qty: 90 3RF aspirin 81 mg tablet,delayed release (DR/EC) 81 mg PO BID Qty: 60 0RF docusate sodium [Colace] 100 mg capsule 100 mg PO BID PRNQty: 10 0RF oxycodone 10 mg tablet 10 mg PO .q4-6 PRNQty: 16 0RF Rx Instructions: Take 1 tablet every 4-6 hours as needed naloxone 1 mg/mL syringe 1 mg subcut Q2-3M PRNQty: 2 0RF Rx Instructions: NTExceed 10 mg total dose/episode Continued trazodone 50 mg tablet 25 - 50 mg PO QHS PRN0RF fluticasone propionate [Flonase] 16 GM spray,suspension 50 mcg NS DAILY PRN0RF Label Comments: pt reports using oinly during summer time loratadine [Claritin RediTabs] 10 mg tablet,disintegrating 10 mg PO DAILY PRN0RF Label Comments: t reports taking only in the summer Rx Instructions: FROM RECORDS.HE pantoprazole 40 mg tablet,delayed release (DR/EC) 40 mg PO HS 0RF albuterol sulfate [ProAir HFA] 90 mcg/actuation HFA aerosol inhaler 2 puff inhalation Q6H PRN0RF Label Comments: pt reports taking PRN clonidine HCl [Catapres] 0.1 MG tablet 0.1 mg PO HS 0RF citalopram 40 MG tablet 40 mg PO HS 0RF clonazepam 0.5 MG tablet 0.5 mg PO DAILY 0RF diphenhydramine-acetaminophen [Tylenol PM Extra Strength] 25-500 mg Tablet 2 tab PO HS PRN0RF losartan 100 mg tablet 100 mg PO DAILY 0RF Label Comments: TAKE 1 TABLET BY MOUTH ONCE DAILY diphenhydramine HCl [Benadryl] 25 MG capsule 25 mg PO Q6H PRN0RF Label Comments: pt reports using in the summer only ibuprofen 800 mg tablet 800 mg PO TID PRNQty: 90 0RF Discontinued tramadol 50 mg tablet 50 - 100 mg PO QHS PRN (Reason: pain) Qty: 20 0RF Discharge Instructions Additional Instructions: Total Knee Discharge Instructions Activity: The most important activity is to walk. You should try to take short walks a few times a day. It is important that when resting you work on keeping the knee straight. Avoid putting a pillow behind the knee as this will encourage flexion. Work on range of motion exercises as provided by Physical Therapy. - Start outpatient physical therapy within 2 weeks. - You should wear the DAMIEN hose on both legs for 2 weeks. You may remove these at night. You may also use any compression sock in place of the DAMIEN hose. - Utilize [employer] to review exercises, see videos on exercises and obtain basic information pertaining to your surgery and your recovery. Dressing: Keep the surgical dressing (underneath the DEEPAK wrap) in place for at least one week. After the first week it may be removed and replaced with light gauze and tape or nothing. The wound and dressing may get wet after 3 days but avoid soaking the dressing or otherwise it will need to be changed. Many people prefer covering the dressing with cling wrap (saran wrap) to minimize it from getting soaked. If it gets wet, just pat dry. If it starts to peel off then it will need to be changed. Medications: - You should take Tylenol and anti-inflammatory Ibuprofen as your primary pain control medications. If the Celebrex is too expensive or not covered, please call the office for another alternative (Advil/Ibuprofen or Naproxen/Aleve) - You have been prescribed a stronger pain medication Oxycodone for breakthrough pain, take as needed as prescribed. - You should continue your stomach acid reduction agent Pantoprozole to help reduce stomach acid and reflux. - You will be taking Aspirin 81mg twice a day for DVT prevention unless instructed otherwise. - If you have constipation you should take Colace or Miralax (both [id number]). It takes most people 3-4 days to have a bowel movement. Follow-up: 2 weeks If you have any acute concerns or questions, please do not hesitate to contact the office at [phone]. You may contact Dr. Sinha with any questions after hours through the hospital at [phone] or on his cell phone at [phone]. Stand Alone Forms: Nursing Discharge Form Referrals: Rasheed Sinha MD [ [facility] STAFF PHYSICIAN] - 11/13/21 9:30 am Activity:: Activity as Tolerated Equipment/Supplies:: Walker Diet:: As Tolerated Discharge Orders Discharge Orders: Discharge Order (Routine); Ordered 10/30/21 Ordered By: Jeffery Haro Discharge Data Discharge Date/Time-TO BE ENTERED AT DEPARTURE: 10/30/21 12:08 DS: Summary Time Spent with Patient providing and/or coordinating discharge services: Less than 30 minutes Status at Discharge Functional status at discharge: uses cane/walker Overall status at discharge: patient is progressing back to baseline Mental Status: mental status grossly normal Speech and Movement: speech and movement normal Mood: congruent mood Affect: normal affect Exam Psych Mental Status: mental status grossly normal Speech and Movement: speech and movement normal Mood: congruent mood Affect: normal affect DS: Data Vitals/I&O Vitals and I&O: Vital Signs Temperature 36.6 C 10/30/21 04:30 Temperature Source Tympanic 10/30/21 04:30 Pulse 80 10/30/21 04:30 Pulse Rhythm Regular 10/30/21 04:30 Respiratory Rate 18 10/30/21 04:30 Respiratory Effort Non-Labored 10/30/21 04:30 Respiratory Depth Normal 10/30/21 04:30 Respiratory Pattern Normal 10/30/21 04:30 Blood Pressure 108/66 10/30/21 04:30 Blood Pressure Mean 86 10/29/21 11:01 Blood Pressure Position Supine 10/29/21 11:01 Pulse Oximetry 95 10/30/21 04:30 Respiratory End-tidal CO2 31 10/29/21 16:00 Oxygen Delivery Method Room Air 10/30/21 04:30 Oxygen Flow Rate 0 10/30/21 04:30 Pain Level 4 10/30/21 06:19 Comment Adithya Lozano CRNA performed nerve block with Balaji Heath RN & Argelia Ley RN in the room. Time out performed by Adithya Carpio CRNA. 10/29/21 11:01 Intake & Output 10/29/21 10/29/21 10/30/21 11:59 23:59 11:59 Intake Total 1639.333 / 1639.333 Output Total 500 / 500 Balance 1139.333 / 1139.333 Weight 104 kg Intake: IV 1279.333 / 1279.333 Oral 360 / 360 Output: Urine 300 / 300 Estimated Blood Loss 200 / 200 Other: Urine Color Light Consuelo Urine Appearance Clear Comment Voiding independently, urine not seen at this time. Denies further burning on urination previously reported. Stool Size Moderate Stool Characteristics Formed Emesis Description None Voiding Methods Toilet Toilet Data Completed and Pending Labs on day of discharge: Labs from last 24 hours 10/30/21 10/30/21 06:52 06:52 WBC 26.49 H* RBC 4.40 Hgb 12.3 L Hct 37.6 L MCV 85.5 MCH 28.0 MCHC 32.7 RDW 13.2 Plt Count 277 MPV 11.2 H Sodium 138 Potassium 4.5 Chloride 105 Carbon Dioxide 25.0 Anion Gap 8.0 BUN 19 H Creatinine 1.0 Estimated GFR/1.73 m2 >= 60.00 Glucose 130 H Calcium 8.3 L PFSH All Active Problems Painful total knee replacement, right (Acute) Painful orthopaedic hardware (Acute) No-show for appointment (Acute) 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 (Acute 01/22/20) Laceration of ankle, left, complicated (Acute 01/22/20) Posterior tibial artery injury (Acute 01/22/20) Anxiety (Chronic) Intraosseous ganglion (Acute) 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 beneath tibial component of TKA Noted on x-ray and MRI S/P ganglion cyst excision DOS: 07/02/19 Aspiration of recurrence on anterolateral proximal tibia: 11/01/2018; 02/08/2019 Medical History Anxiety disorder Arthralgia Bilateral elbow joint pain Bone lesion Bright red blood per rectum Cervical spinal stenosis Cervicalgia Chronic pain of right knee Contusion of lung, unilateral, sequela Diverticulosis of colon Encounter for smoking cessation counseling Erectile dysfunction History of tobacco use Hyperlipidemia Hypertension Insomnia disorder related to known organic factor Lesion of left tibial nerve Lumbar radiculopathy Medication management Pain of right sacroiliac joint Paresthesias Pelvic pain Skin lesion Stye Traumatic rupture of symphysis pubis Urinary frequency Surgical History H/O arthroscopy of right knee right knee w/ partial meniscectomy in 2007 by CDDx2. Other arthroscopies right knee since 2007 x 2 History of knee replacement procedure of right knee Family History Mother No problems noted. Father Tremor Anxiety Paternal Aunt Lung cancer Social History Smoking/Tobacco Use Status: Current every day Tobacco Type: cigarettes Years smoked: 30 Tobacco: How many years used: 20 Smoking risk assessment performed?: Yes Alcohol Intake: never Drug use: Never Substance use type: does not use Current gender identity: male Do you feel safe at home: Yes Do you feel safe in your relationship?: Yes
[2021-10-30] MEDS: Acetaminophen 500 MG TAB 1000 MG PO (07:51)
[2021-10-30] MEDS: clonazePAM 0.5 MG TAB PO (07:52)
[2021-10-30] MEDS: Losartan 50 MG TAB 100 MG PO (07:52)
[2021-10-30] MEDS: Dexamethasone 4 MG/ML VIAL IVP (07:52)
[2021-10-30] MEDS: Aspirin E.C. 81 MG TABEC PO (07:52)
[2021-10-30 07:55] VITALS: BP 130/81; PULSE 71; RESP 18; TEMP 36.5; O2SAT 97
--- NOTE | 2021-10-30 10:13 | IN_ITS ---
Date of service: 10/30/21 Time of Service: 10:13 PT Notes Visit Reasons: Right Prosthetic Knee Loosening Physical Therapy Inpatient Initial Evaluation Date: 10/30/2021 Referring Doctor: Rasheed Sinha MD PT Orders: PT CONSULT: Status post Ortho surgery. S/P revision R TKA Precautions: WBAT on right LE with AD. 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 PMHX: Medical History? Anxiety disorder Arthralgia Bilateral elbow joint pain Bone lesion Bright red blood per rectum Cervical spinal stenosis Cervicalgia Chronic pain of right knee Contusion of lung, unilateral, sequela Diverticulosis of colon Encounter for smoking cessation counseling Erectile dysfunction History of tobacco use Hyperlipidemia Hypertension Insomnia disorder related to known organic factor Lesion of left tibial nerve Lumbar radiculopathy Medication management Pain of right sacroiliac joint Paresthesias Pelvic pain Skin lesion Stye Traumatic rupture of symphysis pubis Urinary frequency Surgical History? H/O arthroscopy of right knee right knee w/ partial meniscectomy? in 2007 by CDDx2. Other arthroscopies right knee since 2007 x 2 History of knee replacement procedure of right knee Social History/Home Situation: Patient lives with a girlfriend in a private home with 17 steps to enter and rails on both sides. Independent with all aspects of ADLs prior to revision. Equipment Owned/DME: [facility] Subjective: Agreeable to PT consult. Reports 5/10 pain in the R knee that subsided with rest. Objective: General Observation: In NAD. Mepilex Ag over surgical incision. Mental Status: Alert and oriented as to person, place, time, and purpose. Able to pay attention, focus, and respond appropriately. Pain: 5/10 in R knee Vital Signs: WNL as closely monitored by nursing staff ROM: Right Lower Extremity: Hip flexion WFL. Hip abduction WFL. Knee flexion 10 degrees to 100. Extension -10 degrees. dorsiflexion WFL. Ankle plantarflexion WFL. Left Lower Extremity: Hip flexion WFL. Hip abduction WFL. Knee flexion WFL. Ankle dorsiflexion WFL. Ankle plantarflexion WFL. Strength: Right Lower Extremity: Hip flexors 4/5. Hip abductors 4/5. Knee flexors 3-/5. Knee extensors 3-/5. Ankle dorsiflexors 5/5. Ankle plantarflexors 5/5. Left Lower Extremity: Hip flexors 5/5. Hip abductors 5/5. Knee flexors 5/5. Knee extensors 5/5. Ankle dorsiflexors 5/5. Ankle plantarflexors 5/5. Bed Mobility/Transfers: Sit to stand with independent Stand to sit with independent Bed to reclining chair independent Reclining chair to bed independent Gait: Instructed patient with level surface ambulation of 300 feet requiring supervision assist using FWW. Step-through gait pattern. Good quadriceps activation. Stairs: UP and down 12 x 4 inch steps and 8 x 6 inch steps while holding onto B rails for support with step-to gait patten with cues given for adequate knee flexion on the R for safety. Stand by assist provided. Balance: Static Sitting: Normal Dynamic Sitting: Normal Static Standing: Fair Dynamic Standing: Fair Special Tests: Mobility Limitations Standardized Measure [facility] AM-PAC 6 clicks Basic Mobility Inpatient Short Form: Raw Score: 24 CMS Score: 0% deficit Informed Consent/Education: Patient was instructed in purpose of PT consult. Informed about downloading Eduquia geronimo containing post operative exercises in a user-friendly format. Assessment: Patient requires the use of front wheel walker to maximize independence and reduce fall risk. Patient presents with clinical signs and symptoms consistent with current/admitting diagnoses that have resulted to mobility limitations, gait instability, generalized weakness, and overall ADL decline as demonstrated by the following impairment level findings: 1. Decreased strength to R knee major muscle groups 2. Impairedstandin g balance 3. Impaired activity tolerance 4. Limitation of joint range of motion in R knee Impairments are contributing to the following functional limitations: 1. Difficulty with ambulation without assistive device 2. Increased completion time for mobility ADL performance 3. Increased risk for falls Patient is assessed as a 96077 moderate complexity based on the following: History: 45-year-old male with past medical history as indicated above Examination: Demonstrable impairment in strength, balance, and mobility level with underlying impairments and functional limitations as exhibited above as well as deficit score of 0% utilizing the [facility] Mobility Inpatient Short Form Presentation: Evolving Decision Makin moderate complexity Goals: N/A. Evaluation 1 treatment session only for functional mobility training and HEP instruction. Plan of Care/Treatment Plan: N/A. Evaluation 1 treatment session only for functional mobility training and HEP instruction. DISCHARGE RECOMMENDATIONS: [] Home with no services [] [] Home with services [specify] [X] Home with outpatient PT. Home when medically cleared by orthopedic surgeon. Will benefit from outpatient PT services in order to facilitate return to independent community ambulation without an assistive device. [] SNF for continued rehabilitation [] [] Senior Living Care [] [] SNF versus LTC based on ability to participate and progress [] TREATMENT CODE/TIME: 95564 x 22 minutes beginning at 10:13 AM. Thank you for the opportunity to participate in the care of this patient. Katie Mata PT, DPT, CLT [facility] [place], [place]
--- NOTE | 2021-10-30 16:41 | PDOC.CMDIS ---
- If Service Date Differs Date of service: 10/30/21 Time of Service: 16:41 LACE Index Scoring Tool - Questions: Length of Stay (in days): 1 Acuity (Admit via E.D.?): No E.D. Visits: 0 - Answers: Total Score: 1 Risk of Readmission: Low Risk Care Management Discharge Reason for Hospitalization: Revision Right Knee Replacement with Patellar Resurfacing Discharge Plan: Discharge home via private vehicle with family. Follow up with community provider's and discharge plan of care as prescribed. No new [facility] services are indicated at this time. Patient/Family Education Needs: Review discharge instructions, limitations, medications and plan to follow up with community providers. ask me three.
== END 2021-10-30 12:08 | disposition home or self-care (01) | DRG 468 ==
LOC: MS 16:22
PROVIDERS: Admitting Provider Student in an Organized Health Care Education/Training Program; PCP Family Medicine; Visit Provider Student in an Organized Health Care Education/Training Program
PROC: 0SPC0JZ Removal of Synthetic Substitute from Right Knee Joint, Open Approach (ICD-10-PCS; CPT 27487; principal; 2021-10-29 11:15)
DX: T84.032A Mechanical loosening of internal right knee prosthetic joint, initial encounter (principal); K21.9 Gastro-esophageal reflux disease without esophagitis; I10 Essential (primary) hypertension; F41.9 Anxiety disorder, unspecified; K57.30 Diverticulosis of large intestine without perforation or abscess without bleeding; M54.16 Radiculopathy, lumbar region; M48.02 Spinal stenosis, cervical region; E78.5 Hyperlipidemia, unspecified
CPT/HCPCS: 27487; 76942; 80048; 85027; 97162; 73560; J0690; J1100; J1170; J1885; J2001; J2250; J2405; J2704

== ENCOUNTER 2021-11-13 09:47 | Outpatient (CLI) | payer MEDICAID, SELFPAY ==
--- NOTE | 2021-11-13 09:30 | DI.RAD_ITS ---
Exam(s) XR KNEE RT 2V AP,LAT EXAM: XR KNEE RT 2V AP,LAT CLINICAL HISTORY: 1ST POST OP REVISION R TKA. TECHNIQUE: 2D digital imaging was performed of the right knee. Two views obtained. AP and lateral views were obtained. COMPARISON: CR XR KNEE RT 2V AP,LAT from 10/29/2021 FINDINGS: BONES: No acute fracture is present. No bony destructive lesion is seen. JOINTS: Stable postsurgical changes of a right total knee replacement. No joint effusion is seen. SOFT TISSUE: Normal. IMPRESSION: Stable appearance of the right knee. DATA REPOSITORY: RADIATION DOSE DELIVERED:
== END 2021-11-13 09:48 | disposition home or self-care (01) ==
LOC: DIORS 09:47
PROVIDERS: PCP Family Medicine; Referring Provider Family Medicine; Visit Provider Student in an Organized Health Care Education/Training Program
DX: Z96.651 Presence of right artificial knee joint (principal); Z47.1 Aftercare following joint replacement surgery
CPT/HCPCS: 73560

== ENCOUNTER 2022-01-22 09:17 | Outpatient (REF) | payer MEDICAID, SELFPAY ==
[2022-01-22 10:36] LABS: Clarity Cloudy; Mononuclear Cells 68 %; Nucleated Cells 771 uL (0); Polynuclear Cells 32 %
[2022-01-22 13:53] LABS: Crystals (BF) No Crystals seen
== END 2022-01-22 09:18 | disposition home or self-care (01) ==
LOC: LBN 09:17
PROVIDERS: PCP Family Medicine; Visit Provider Student in an Organized Health Care Education/Training Program
DX: T84.84XA Pain due to internal orthopedic prosthetic devices, implants and grafts, initial encounter (principal); Z96.651 Presence of right artificial knee joint
CPT/HCPCS: 87070; 87205; 89051; 89060

== ENCOUNTER 2022-05-19 16:04 | Outpatient (REF) | payer MEDICAID, SELFPAY ==
[2022-05-22 11:23] LABS: 2-OH-Ethyl-Flurazepam Negative ng/mL (Cutoff: 10); 7-NH-Clonazepam 125 ng/mL (Cutoff: 10); 7-NH-Flunitrazepam Negative ng/mL (Cutoff: 10); Alpha OH-Alprazolam Negative ng/mL (Cutoff: 10); Alpha-OH Midazolam Negative ng/mL (Cutoff: 10); Alpha-OH-Triazolam Negative ng/mL (Cutoff: 10); Alprazolam Negative ng/mL (Cutoff: 10); Benzodiazepines Interpretation Positive.; Chlordiazepoxide Negative ng/mL (Cutoff: 10); Clobazam Negative ng/mL (Cutoff: 10); Clonazepam Negative ng/mL (Cutoff: 10); Diazepam Negative ng/mL (Cutoff: 10); Flurazepam Negative ng/mL (Cutoff: 10); Lorazepam Negative ng/mL (Cutoff: 10); Midazolam Negative ng/mL (Cutoff: 10); N-Desmethylclobazam Negative ng/mL (Cutoff: 10); Prazepam Negative ng/mL (Cutoff: 10); Temazepam Negative ng/mL (Cutoff: 10); Zolpidem Carboxylic acid Negative ng/mL (Cutoff: 10)
== END 2022-05-19 16:05 | disposition home or self-care (01) ==
LOC: NCHCN 16:04
PROVIDERS: PCP Family Medicine; Visit Provider Family Medicine
DX: Z51.81 Encounter for therapeutic drug level monitoring (principal)
CPT/HCPCS: 80346

== ENCOUNTER 2022-09-15 09:00 | Day surgery (SDC) | payer MEDICAID, SELFPAY ==
[2022-09-15] VITALS (12 sets, daily range): BP systolic 97–121; BP diastolic 66–89; PULSE 74–88; RESP 13–23; TEMP 36.3–36.7; O2SAT 94–99; BMI 31.4
--- NOTE | 2022-09-15 06:53 | W.PM.DSUDISC ---
Date of service: 09/15/22 Time of Service: 06:57 Discharge Plan Disposition Patient Disposition: Home Condition: Good Discharge Details Reason For Visit: Painful right TKA Attending Provider: Rasheed Sinha Primary Care Provider: Rachel Montenegro V Home Meds and New Rx's Prescriptions: New acetaminophen 500 mg tablet 500 mg PO Q6H PRN (Reason: pain) Qty: 60 2RF hydrocodone-acetaminophen 5-325 mg tablet 1 tab PO Q6H PRN (Reason: severe pain) Qty: 4 0RF Rx Instructions: Take one tablet up to every 6 hours as needed for severe postoperative pain ibuprofen 600 mg tablet 600 mg PO TID PRN (Reason: pain) Qty: 60 0RF Continued nortriptyline 25 mg capsule 25 mg PO QHS fluticasone propionate [Flonase] 16 GM spray,suspension 50 mcg NS DAILY PRN Label Comments: pt reports using oinly during summer time loratadine [Claritin RediTabs] 10 mg tablet,disintegrating 10 mg PO DAILY PRN Label Comments: t reports taking only in the summer Rx Instructions: FROM RECORDS.HE pantoprazole 40 mg tablet,delayed release (DR/EC) 40 mg PO HS albuterol sulfate [ProAir HFA] 90 mcg/actuation HFA aerosol inhaler 2 puff inhalation Q6H PRN Label Comments: pt reports taking PRN clonidine HCl [Catapres] 0.1 MG tablet 0.1 mg PO HS citalopram 40 MG tablet 40 mg PO HS clonazepam 0.5 MG tablet 0.5 mg PO DAILY diphenhydramine-acetaminophen [Tylenol PM Extra Strength] 25-500 mg Tablet 2 tab PO HS PRN losartan 100 mg tablet 100 mg PO DAILY Label Comments: TAKE 1 TABLET BY MOUTH ONCE DAILY diphenhydramine HCl [Benadryl] 25 MG capsule 25 mg PO Q6H PRN Label Comments: pt reports using in the summer only docusate sodium [Colace] 100 mg capsule 100 mg PO BID PRNQty: 10 0RF naloxone 1 mg/mL syringe 1 mg subcut Q2-3M PRNQty: 2 0RF Rx Instructions: NTExceed 10 mg total dose/episode Discontinued acetaminophen 500 mg tablet 1,000 mg PO Q8H PRN (Reason: pain) Qty: 90 3RF ibuprofen 800 mg tablet 800 mg PO TID PRNQty: 90 0RF Discharge Instructions Additional Instructions: Knee Discharge Instructions Activity: You should begin moving as soon as possible. You may work on flexion but also equally maintain extension. You may bear weight as tolerated, using crutches only for support/comfort. You should apply ice to help with swelling and elevate when possible (especially in the first few days). Dressings: The knee dressing may come down after 48 hours. You may shower and get the wound wet at that time. You should keep the wounds covered with a bandaid until follow-up. Medications: - Recommend to take up to 1000mg of Acetaminophen (Tylenol) and 600mg of Ibuprofen (Advil) every 8 hours as needed. These larger strength tablets were called in but you also may use [id number]. - You have been prescribed a narcotic, Hydrocodone, to take for breakthrough pain only as needed. Follow-up: 7-10 days Stand Alone Forms: Anesthesia Discharge Inst[facility] Arnol Crooks ([facility]), [facility] K[facility]throsc[facility] Referrals: Rasheed Sinha MD [ [facility] STAFF PHYSICIAN] - 09/28/22 8:15 am Equipment/Supplies: Partial Weight Bearing Crutches Activity:: Elevate Remove Dressings/Wound Care:: 48 hours Shower/Bathe:: 48 hours Diet:: As Tolerated Discharge Orders Discharge Orders: Discharge Order (Routine); Ordered 09/15/22 Ordered By: Leticia Fang
[2022-09-15] MEDS: Lactated Ringers 1,000 ML 80 ML IV (10:00)
--- NOTE | 2022-09-15 11:24 | ANES.PREOP_ITS ---
General Info Date of Service Date Performed: 09/15/22 Height: 5 ft 11 in Weight: 102.4 kg Body Mass Index (BMI): 31.4 Surgical Procedure: Operation Date: 09/15/22 13:10 Proposed Procedure Side Surgeon p Knee Arthroscopy Synovectomy Right Rasheed Sinha MD Meds Allergies and Home Medications Allergies Allergy/AdvReac Type Severity Reaction Status Date / Time pregabalin [From Lyrica] Allergy Intermediate Other (See Verified 09/15/22 09:40 Comment) simvastatin Allergy Intermediate Unknown Verified 09/15/22 09:40 gabapentin AdvReac Intermediate Psychosis Verified 09/15/22 09:40 lisinopril AdvReac Mild Cough Verified 09/15/22 09:40 Home Medication Medication Instructions Recorded clonidine HCl 0.1 mg tablet 0.1 mg PO HS 10/10/12 (Catapres) citalopram 40 mg tablet 40 mg PO HS 04/29/13 clonazepam 0.5 mg tablet 0.5 mg PO DAILY 05/03/13 fluticasone propionate 50 50 mcg NS DAILY PRN 10/23/14 mcg/actuation nasal spray,suspension (Flonase) diphenhydramine 25 2 tab PO HS PRN 06/29/18 mg-acetaminophen 500 mg tablet (Tylenol PM Extra Strength) loratadine 10 mg disintegrating 10 mg PO DAILY PRN 02/08/19 tablet (Claritin RediTabs) losartan 100 mg tablet 100 mg PO DAILY 01/30/20 diphenhydramine HCl 25 mg capsule 25 mg PO Q6H PRN 02/01/20 (Benadryl) albuterol sulfate 90 mcg/actuation 2 puff inhalation Q6H PRN 08/05/21 aerosol inhaler (ProAir HFA) pantoprazole 40 mg tablet,delayed 40 mg PO HS 08/05/21 release docusate sodium 100 mg capsule 100 mg PO BID PRN #10 caps 10/30/21 (Colace) naloxone 1 mg/mL injection syringe 1 mg subcut Q2-3M PRN #2 mL 10/30/21 nortriptyline 25 mg capsule 25 mg PO QHS 05/20/22 acetaminophen 500 mg tablet 500 mg PO Q6H PRN pain #60 tabs 09/15/22 hydrocodone 5 mg-acetaminophen 325 1 tab PO Q6H PRN severe pain #4 09/15/22 mg tablet tabs ibuprofen 600 mg tablet 600 mg PO TID PRN pain #60 tabs 09/15/22 Current Visit Medications: Current Medications Generic Name Dose Route Start Last Admin Trade Name Shadi PRN Reason Stop Dose Admin Acetaminophen 650 mg 09/15/22 06:52 Acetaminophen 325 Mg Tab PO Q4H PRN PRN Hydrocodone Bitart/Acetaminophen 0 tab 09/15/22 06:52 Hydrocodone 5/Acetaminophen 325 Tab PO Q3H PRN PRN Pain Ringer's Solution 1,000 mls @ 80 mls/hr 09/15/22 06:00 09/15/22 10:00 IV 10/14/22 23:59 80 mls/hr INFUSION RICO Administration Cefazolin Sodium/Dextrose 2 gm in 50 mls @ 100 mls/hr 09/15/22 06:00 Ancef Duplex IVPB 10/14/22 23:59 PREOP RICO IV Miscellaneous Supplies 1 each 09/15/22 06:00 Iv Access IV 10/14/22 23:59 DIRECTED RICO Sodium Chloride 0 ml 09/15/22 06:00 Normal Saline Flush 10 Ml Syr IV 10/14/22 23:59 PRN PRN Sodium Chloride 0 ml 09/15/22 06:00 Normal Saline 10 Ml Vial IJ 10/14/22 23:59 DIRECTED PRN Sterile Water 0 ml 09/15/22 06:00 Water,Injection,Sterile 10 Ml Vial IJ 10/14/22 23:59 DIRECTED PRN PFSH Active Problems Active Problems: Problem Status Onset Code Intraosseous ganglion M67.49 Anxiety F41.9 Posterior tibial artery injury 01/22/20 S85.169A Laceration of ankle, left, complicated 01/22/20 S91.012A 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 01/22/20 S84.02XA No-show for appointment Z53.29 Painful orthopaedic hardware T84.84XA Painful total knee replacement, right T84.84XA, Z96.651 Medical History Medical History Anxiety disorder Arthralgia Bilateral elbow joint pain Bone lesion Bright red blood per rectum Cervical spinal stenosis Cervicalgia Chronic pain of right knee Contusion of lung, unilateral, sequela Diverticulosis of colon Encounter for smoking cessation counseling Erectile dysfunction History of tobacco use Hyperlipidemia Hypertension Insomnia disorder related to known organic factor Lesion of left tibial nerve Low back pain Lumbar radiculopathy Medication management Pain of right sacroiliac joint Paresthesias Pelvic pain Situational depression Skin lesion Stye Traumatic rupture of symphysis pubis Urinary frequency Medical History Comments:: metal in right knee Surgical History Surgical History (Updated 09/15/22 @ 09:40 by Rosi Cintron RN) H/O arthroscopy of right knee right knee w/ partial meniscectomy in 2007 by CDDx2. Other arthroscopies right knee since 2007 x 2 History of knee replacement procedure of right knee x2 Hx of colonoscopy Tobacco Smoking/Tobacco Use Status: Current every day Tobacco Type: cigarettes Smoking cigarettes per day: 30 Years smoked: 30 Alcohol Alcohol Intake: never Substance Use Substance use: Never Substance use type: does not use Vital Signs and Lab Results Vital Signs Most Recent Vital Signs in EMR: Most Recent Vital Signs Temp Pulse Resp BP Pulse Ox 36.3 C L 88 18 115/77 97 09/15/22 09:20 09/15/22 09:20 09/15/22 09:20 09/15/22 09:20 09/15/22 09:20 Lab Results Blood Type / Crossmatch: No Data to Display Complete Blood Count: No Data to Display Complete Metabolic Panel: No Data to Display Liver Function Panel: No Data to Display Coagulation Panel: No Data to Display Cardiac Panel: No Data to Display Arterial Blood Gas: 2 No Data to Display Venous Blood Gas: No Data to Display Pancreas Panel: No Data to Display Thyroid Panel: No Data to Display Infectious Disease: No Data to Display Blood Cultures: No Data to Display Toxicology Panel: No Data to Display Anesthesia Assessment and Plan Anesthesia History Personal History: No History of Anesthesia Complications Family History: No Family History of Anesthesia Complications Exercise Tolerance Exercise Tolerance: Metabolic Equivalents>4 Pertinent Negatives Pertinent Negatives: No Symptoms of GERD (Well controlled), No Major Cardiovascular Symptoms or Complaints, No Major Pulmonary Symptoms or Complaints and No History of CVA/TIA Cardiac & Pulmonary Exam Cardiac Exam: Normal S1/S2 Heart Sounds Pulmonary Exam: Clear Bilateral Breath Sounds Implantable Cardiac Device Does patient have a Pacemaker or an ICD?: No Airway Exam Known Difficult Airway: No Mallampati Class: 2 Mouth Opening: Normal (> 3cm) Thyromental Distance: Greater than 3 cm Neck Range of Motion: Full ROM Neck Circumference: Normal Teeth Condition: Edentulous ASA Classification ASA Score: ASA 2 Emergency Case?: No NPO Status NPO Status: NPO Clears >2 hours, Solids >8 hours Anesthesia Plan Resuscitation Status: Full Code Anesthesia Technique: General Anesthesia Airway Planned: LMA Monitors Used: Standard Monitors
[2022-09-15] MEDS: ceFAZolin 2 GM/50 ML BAG IVPB (12:14)
[2022-09-15] MEDS: Bupivacaine 0.5% Pres-Free 30 ML VIAL (12:29)
[2022-09-15] MEDS: EPINEPHrine 30 MG/30 ML VIAL (12:36)
[2022-09-15] MEDS: Normal Saline Flush 10 ML SYR IV ×2 (13:58→14:30)
--- NOTE | 2022-09-15 14:04 | W.PM.OP ---
Date of service: 09/15/22 Time of Service: 13:15 Operative Note Operative Note DATE OF PROCEDURE: 09/15/22 PRE-OP DIAGNOSIS: Arthrofibrosis and Pain of Right Revision Knee Arthroplasty POST-OP DIAGNOSIS: same PROCEDURE: Right Knee Arthroscopic Synovectomy of all 3 compartments SURGEON: Rasheed Sinha ANESTHESIA TYPE: General LMA/ETT Refer to Anesthesia Record ESTIMATED BLOOD LOSS: 0 PATHOLOGY: none sent COMPLICATIONS: None Patient was transported to: PACU Patient's condition: stable Indications: I have seen Satish in clinic for symptoms of pain and arthrofibrosis of the knee following knee replacement surgery. Nonoperative measures were exhausted but disability due to lack of motion persisted. I discussed knee arthroscopy with synovectomy with the patient. I reviewed the risks of the procedure to include, but not limited to, bleeding, infection, pain, continued stiffness, recurrence, blood clot. Despite these risks, the patient elected to proceed. Findings: There is dense adhesions and scar tissue seen throughout the knee superiorly and particulate laterally and around the patella. Procedure Description: Satish was greeted in the preoperative holding area where the correct side was identified and marked. The consent was reviewed with the patient and signed. The history and physical was updated. All questions were answered. He was taken back to the operating room. The patient was placed into the supine position on the operating room table. All bony prominences were well padded. Prophylactic antibiotics in the form of Cefazolin were administered. The right leg was then prepped with Chloraprep and draped in a standard fashion with stockinette and extremity drape. A timeout to confirm correct identity, side and site, procedure, allergies, anesthesia, and medical concerns was performed. The leg was placed into a pneumatic leg cadena, [id number]. A standard lateral portal was made at the lateral border of the patella tendon in line with the inferior pole of the patella, soft spot. The skin and deep tissue was incised sharply and the blunt trochar was inserted atraumatically. At this point had visualization of the femoral component. A superolateral portal was then established with spinal needle localization just superior and lateral to the patella. A knife was taken down through the skin and soft tissue to enter the knee joint. Starting in the superior compartment above the femoral component and anterior to the femur I released all scarring between the anterior femoral synovium and the overlying extensor mechanism. This was taken through all of any noticeable scar tissue until the superior patellar pouch was fully released and mobile. This resection was carried out mostly with electrocautery as well as shaver. Once this was released fully from lateral to medial superiorly I then continue working down the lateral gutter. There was dense adhesions and scar tissue within the lateral and anterolateral knee and adjacent to the patella. All scar tissue in the lateral gutter was released so there is normal space and movement between the capsular tissues and the edge of the femoral component and femur. This was taken down through the lateral gutter such that I was able to identify the polyethylene to its posterior corner. Once again, all scar tissue in this area was resected so the polyethylene was easily visible and there is no interposed tissue in the back or the polyethylene was identified. I think continue to work anteriorly. To continue the synovectomy from the lateral compartment to the anterior compartment into the medial compartment, I placed a medial portal under spinal needle localization. Once this was in place it became another working portal and I continued the synovectomy through the anterior compartment to the medial compartment. Once again, I freed up the medial gutter so I was able to visualize the polyethylene from the anterior posterior margins. There is no interposed tissue after full synovectomy was performed. Adhesions between the capsule and the femur were released. This was continued up the medial gutter until it met up with the releases performed previously in the superior compartment. Any remnant scar tissue from around the patella was then removed with a shaver and electrocautery. The arthroscope was brought back into the suprapatellar pouch and the leg was in full extension. The knee was thoroughly irrigated with the arthroscopic fluid on high flow and pressure. Inflow was stopped and excess fluid was removed. The wounds were closed with 4-0 Nylon. 0.25% bupivacaine was injected around the portal sites and into the knee. The wounds were dressed with Xeroform, 4x4 gauze, ABD pad, Kerlix and an DEEPAK wrap. A cryo-cuff was applied. The patient tolerated the procedure well and was returned to the PACU in a stable condition suffering no known complication..
[2022-09-15] MEDS: HYDROmorphone 2 MG/ML SYR IVP (14:30)
--- NOTE | 2022-09-15 14:34 | W.ANESPOSTOP ---
Postoperative Evaluation Date, Time and Location Date Performed: 09/15/22 Time Performed: 14:34 Patient Location: PACU Vital Signs Most Recent Imported Vital Signs: Most Recent Vital Signs Temp Pulse Resp BP Pulse Ox 36.7 C 83 18 97/66 L 98 09/15/22 14:18 09/15/22 14:18 09/15/22 14:18 09/15/22 14:18 09/15/22 14:18 Pain Score Most Recent Pain Score: Most Recent Pain Score Pain Level 5 09/15/22 14:18 Assessment Mental Status: Awake (Alert & Oriented to Patient Baseline) Airway and Respiratory Function: Patent airway with normal (patient baseline) respiratory exam Cardiovascular Function: Hemodynamically Stable Hydration Status: Adequately Hydrated Nausea & Vomiting: No Nausea or Vomiting Pain: Pain is Moderate or Severe Postoperative Pain Management: Pain being addressed with medication Peripheral Nerve Block: Patient did not receive a nerve block
[2022-09-15] MEDS: HYDROcodone 5/Acetaminophen 325 TAB PO (15:09)
== END 2022-09-15 15:54 | disposition home or self-care (01) ==
PROVIDERS: PCP Family Medicine; Visit Provider Student in an Organized Health Care Education/Training Program
PROC: (CPT 29870; principal; 2022-09-15 13:00)
DX: T84.84XA Pain due to internal orthopedic prosthetic devices, implants and grafts, initial encounter (principal); M24.661 Ankylosis, right knee
CPT/HCPCS: 29876; J0690; J1100; J1170; J1885; J2405; J2704

== ENCOUNTER 2023-01-28 11:11 | Outpatient (REF) | payer MEDICAID, SELFPAY ==
[2023-01-28 16:12] LABS: Anion Gap 5.7 mmol/L (3-11); BUN 13 mg/dL (7-18); CO2 29.3 mmol/L (21.0-32.0); CREATININE 0.9 mg/dL (0.70-1.30); Calcium 9.4 mg/dL (8.5-10.1); Chloride 104 mmol/L (98-107); Estimated GFR 107.33 (mL/min/1.73m2); Glucose 95 mg/dL (74-106); Sodium 139 mmol/L (136-145)
[2023-02-01 07:36] LABS: 2-OH-Ethyl-Flurazepam Negative ng/mL (Cutoff: 10); 7-NH-Clonazepam 202 ng/mL (Cutoff: 10); 7-NH-Flunitrazepam Negative ng/mL (Cutoff: 10); Alpha OH-Alprazolam Negative ng/mL (Cutoff: 10); Alpha-OH Midazolam Negative ng/mL (Cutoff: 10); Alpha-OH-Triazolam Negative ng/mL (Cutoff: 10); Alprazolam Negative ng/mL (Cutoff: 10); Benzodiazepines Interpretation Positive.; Chlordiazepoxide Negative ng/mL (Cutoff: 10); Clobazam Negative ng/mL (Cutoff: 10); Clonazepam Negative ng/mL (Cutoff: 10); Diazepam Negative ng/mL (Cutoff: 10); Flurazepam Negative ng/mL (Cutoff: 10); Lorazepam Negative ng/mL (Cutoff: 10); Midazolam Negative ng/mL (Cutoff: 10); N-Desmethylclobazam Negative ng/mL (Cutoff: 10); Prazepam Negative ng/mL (Cutoff: 10); Temazepam Negative ng/mL (Cutoff: 10); Triazolam Negative ng/mL (Cutoff: 10); Zolpidem Carboxylic acid Negative ng/mL (Cutoff: 10)
== END 2023-01-28 11:12 | disposition home or self-care (01) ==
LOC: NCHCN 11:11
PROVIDERS: PCP Family Medicine; Visit Provider Family Medicine
DX: I10 Essential (primary) hypertension (principal); Z51.81 Encounter for therapeutic drug level monitoring; Z79.899 Other long term (current) drug therapy; R82.5 Elevated urine levels of drugs, medicaments and biological substances
CPT/HCPCS: 80048; 80346

== ENCOUNTER 2023-04-05 13:53 | Outpatient (CLI) | payer MEDICAID, SELFPAY ==
--- NOTE | 2023-04-05 13:30 | DI.RAD_ITS ---
Exam(s) XR KNEE RT 3V AP,LAT,EFREM EXAM: XR KNEE RT 3V AP,LAT,EFREM CLINICAL HISTORY: R revision TKR pain. TECHNIQUE: 2D digital imaging was performed. Three images were obtained. Merchant's, AP and lateral views were obtained. COMPARISON: CR XR KNEE RT 2V AP,LAT from 11/13/2021 CR XR KNEE COMPLETE MIN 4V RT from 08/29/2022 FINDINGS: BONES: There are stable post operative changes present. No fracture or dislocation. JOINTS: The orthopedic hardware is in good position. No evidence of hardware loosening. SOFT TISSUE: Normal. IMPRESSION: Stable postoperative changes of a right total knee replacement. DATA REPOSITORY: RADIATION DOSE DELIVERED:
== END 2023-04-05 13:54 | disposition home or self-care (01) ==
LOC: DIORS 13:53
PROVIDERS: PCP Family Medicine; Referring Provider Family Medicine; Visit Provider Physician Assistant
DX: Z96.651 Presence of right artificial knee joint (principal); Z47.1 Aftercare following joint replacement surgery
CPT/HCPCS: 73562

== ENCOUNTER 2023-07-16 15:41 | Outpatient (REF) | payer MEDICAID, SELFPAY ==
[2023-07-16 19:14] LABS: HCT 44.4 % (40.0-50.0); HGB 14.9 g/dL (13.5-17.5); MCH 28.1 pg (27.0-33.0); MCHC 33.6 % (32.0-36.0); MCV 84 fL (80-95); Platelet Count 334 10^3/uL (130-400); RDW 13.1 % (11.8-14.1); WBC 12.17 10^3/uL (4.4-10.8)
[2023-07-16 19:33] LABS: ALT 40 U/L (16-63); AST 27 U/L (15-37); Albumin 3.9 g/dL (3.4-5.0); Alkaline Phosphatase 128 U/L (46-116); Anion Gap 9.2 mmol/L (3-11); BUN 8 mg/dL (7-18); Bilirubin, Total 0.4 mg/dL (0.2-1.0); CO2 26.8 mmol/L (21.0-32.0); Calcium 9.2 mg/dL (8.5-10.1); Chloride 102 mmol/L (98-107); Estimated GFR 94.59 (mL/min/1.73m2); Glucose 96 mg/dL (74-106); Potassium 4.2 mmol/L (3.5-5.1); Sodium 138 mmol/L (136-145); TSH (W/Ref FT4) 2.06 uIU/mL (0.36-3.74); Total Protein 7.5 g/dL (6.4-8.2)
== END 2023-07-16 15:42 | disposition home or self-care (01) ==
LOC: NCHCN 15:41
PROVIDERS: PCP Family Medicine; Visit Provider Family Medicine
DX: R53.83 Other fatigue (principal); R10.9 Unspecified abdominal pain
CPT/HCPCS: 80053; 85027; 84443

== ENCOUNTER 2024-01-25 17:42 | Outpatient (REF) | payer MEDICAID, SELFPAY ==
[2024-01-25 19:47] LABS: HCT 43.8 % (40.0-50.0); HGB 14.5 g/dL (13.5-17.5); MCH 28.4 pg (27.0-33.0); MCHC 33.1 % (32.0-36.0); MCV 86 fL (80-95); Platelet Count 338 10^3/uL (130-400); RBC 5.11 10^6/uL (4.36-5.78); WBC 15.62 10^3/uL (4.4-10.8)
[2024-01-25 20:03] LABS: ALT 52 U/L (16-63); AST 39 U/L (15-37); Albumin 4.3 g/dL (3.4-5.0); Alkaline Phosphatase 133 U/L (46-116); Anion Gap 7.4 mmol/L (3-11); BUN 10 mg/dL (7-18); Bilirubin, Total 0.7 mg/dL (0.2-1.0); CO2 28.6 mmol/L (21.0-32.0); CREATININE 1.1 mg/dL (0.70-1.30); Calcium 9.1 mg/dL (8.5-10.1); Chloride 103 mmol/L (98-107); Estimated GFR 83.84 (mL/min/1.73m2); Glucose 106 mg/dL (74-106); Potassium 3.8 mmol/L (3.5-5.1); Sodium 139 mmol/L (136-145)
[2024-01-26 18:26] LABS: PSA, Screening 0.4 ng/mL (<=2.5)
== END 2024-01-25 17:43 | disposition home or self-care (01) ==
LOC: NCHCN 17:42
PROVIDERS: PCP Family Medicine; Visit Provider Family Medicine
DX: R53.83 Other fatigue (principal); I10 Essential (primary) hypertension; R39.89 Other symptoms and signs involving the genitourinary system; Z12.5 Encounter for screening for malignant neoplasm of prostate
CPT/HCPCS: 80053; 84153; 85027

== ENCOUNTER 2024-03-20 15:19 | Outpatient (REF) | payer MEDICAID, SELFPAY ==
[2024-03-20 16:09] LABS: Abs Immature Grans 0.08 10^3/uL (0.0-0.06); Absolute Basophil Count 0.13 10^3/uL (0.0-0.2); Absolute Monocyte Count 0.96 10^3/uL (0.1-0.8); Basophils % 0.8 %; Eosinophils % 4.7 %; HCT 48.2 % (40.0-50.0); HGB 15.6 g/dL (13.5-17.5); Immature Grans % 0.5 %; Lymphocytes % 17.2 %; MCH 27.8 pg (27.0-33.0); MCHC 32.4 % (32.0-36.0); MCV 86 fL (80-95); MPV 11.1 fL (8.0-11.0); Monocytes % 5.9 %; Neutrophils % 70.9 %; Platelet Count 391 10^3/uL (130-400); RBC 5.62 10^6/uL (4.36-5.78); RDW 13.2 % (11.8-14.1); RDW-SD 41.4 fL; WBC 16.24 10^3/uL (4.4-10.8)
[2024-03-20 16:11] LABS: Absolute Eosinophil Count 0.76 10^3/uL (0.0-0.7); Absolute Lymphocyte Count 2.79 10^3/uL (1.2-3.4); Absolute Neutrophil Count 11.51 10^3/uL (1.2-6.7)
[2024-03-20 18:07] LABS: BUN 12 mg/dL (7-18); Calcium 10.2 mg/dL (8.5-10.1); Chloride 103 mmol/L (98-107); Glucose 118 mg/dL (74-106); Potassium 4.9 mmol/L (3.5-5.1); Sodium 140 mmol/L (136-145)
[2024-03-20 20:33] LABS: C-Reactive Protein < 0.50 mg/dL (<or=0.5)
== END 2024-03-20 15:20 | disposition home or self-care (01) ==
LOC: NCHCN 15:19
PROVIDERS: PCP Family Medicine; Visit Provider Nurse Practitioner Family
DX: M25.561 Pain in right knee (principal)
CPT/HCPCS: 80048; 85025; 86140

== ENCOUNTER 2024-04-05 01:25 | Outpatient (CLI) | payer MEDICAID, SELFPAY ==
--- NOTE | 2024-04-05 07:30 | DI.CT_ITS ---
Exam(s) CT LOWER EXTREMITY RT WO EXAM: CT LOWER EXTREMITY RT WO CLINICAL HISTORY: RIGHT KNEE PAIN,h/o revision total knee, z96.551. TECHNIQUE: Imaging Protocol: Axial computed tomography images with coronal and sagittal reformatted images were created and reviewed. Both conventional images as well as images with iMAR-Iterative metal artifact reduction software were generated CONTRAST MATERIAL: Intravenous: None COMPARISON: CR XR knee RT 3V AP,lat,david from 06/16/2018 RF XR tib/fib RT from 06/29/2018 CR XR knee RT 2V AP,lat from 07/12/2018 CR XR knee RT 2V AP,lat from 11/01/2018 CR XR knee RT 2V AP,lat from 02/08/2019 NM NM BONE SCAN 3 PHASE from 10/10/2021 NM NM BONE SCAN 3 PHASE from 04/05/2024 Oral phase nuclear scan was also reviewed FINDINGS: There is a revised right knee prosthesis, having been revised on 10/29/2021. The present prosthesis has longer femoral and tibial stems than the original. OSSEOUS: There are dominant chronic degenerative changes in the lateral tibial plateau subjacent to tibial karl teau component as well as within the adjacent proximal tibial fibular joint-articulation, including d egenerative subarticular cysts on both sides of this joint. This is long-standing. Reviewing plain fi lm to 2018 reveal that this was a lucent region in the lateral tibial plateau which was packed with c ement at that time. Apparently this was and intraosseous ganglion of the tibia, according to report o f July 2018. There is a curvilinear defect undermining the anterior cement bone interface. On the sagittal images (series 8/images 35-46) this defect appears to extend posteriorly. This is suspicious for a nondispla yadiel fracture along the cement bone interface in the anterolateral tibial component region. There does not appear to be obvious CT evidence of loosening around the femoral stem nor around the t ibial stem components of the prosthesis. There is also no obvious evidence of loosening on CT scan around the medial femoral condyle component of the prosthesis, this being an area of increased activity on the blood pool and delayed images of today's nuclear bone scan. IMPRESSION: 1. The above described CT finding corresponds to a focus of increased radiopharmaceutical on today's nuclear bone scan subjacent to the lateral tibial component, this seen only on the delayed images. Th is also exhibits increased uptake on a prior nuclear bone scan of October 2021. This is just anterior t o the previously packed lucent bone lesion in the proximal lateral epiphysis-metaphysis of the tibia (apparently and intraosseous ganglia on cyst which was packed with cement in 2019). This may or may n ot be related to the patient's ongoing pain. 2. As described above and on the nuclear scan, there is less than optimal correlation between the nuc lear scan and CT scan findings performed today. RADIATION DOSE DELIVERED: 278.32mGy.cm Total DLP DATA REPOSITORY: All CT scans at this facility are submitted to the National Radiology Data Registry (NRDR) Dose Index Registry (DIR) with the [employer] ([employer]). RADIATION OPTIMIZATION: All CT scans at this facility use at least one of these dose optimization te chniques: automated exposure control; mA and/or kV adjustment per patient size (includes targeted exa ms where dose is matched to clinical indication); or iterative reconstruction.
--- NOTE | 2024-04-05 07:30 | DI.NM_ITS ---
Exam(s) NM BONE SCAN 3 PHASE EXAM: NM BONE SCAN 3 PHASE CLINICAL HISTORY: right knee pain,h/o revision total knee, z96.651. TECHNIQUE: Injected Dose: 25 mCi Tc-99m MDP COMPARISON: CR XR KNEE RT 2V AP,LAT from 06/13/2019 CR XR KNEE RT 2V AP,LAT from 09/22/2021 NM NM BONE SCAN 3 PHASE from 10/10/2021 CR XR KNEE RT 2V AP,LAT from 10/29/2021 CR XR KNEE RT 2V AP,LAT from 11/13/2021 CR XR KNEE COMPLETE MIN 4V RT from 08/29/2022 CR XR KNEE RT 3V AP,LAT,EFREM from 04/05/[address] LOWER EXTREMITY RT WO from 04/05/2024 FINDINGS: Revision prosthesis was placed on 10/29/2021 (2 years and 5 months ago) Most recent plain films of 03/31/2023 (last year) were reviewed. CT scan performed today was also reviewed. PERFUSION IMAGES: The immediate post-injection flow phase images are less than optimally centered over both the femoral and tibial stem components. The entire femoral stem component region and tibial plateau and upper m etaphysis included in the field of view. There does not appear to be asymmetric flow (which would be more in keeping with infection/septic loo sening). BLOOD POOL IMAGES: There is no abnormal uptake in the region of the left knee.. On the right side (side of prosthesis) there is no abnormal radiopharmaceutical uptake around the tib ial component and stem. There is some mild increased uptake seen around the femoral component, more so medially than laterally. DELAYED IMAGES: No abnormal uptake in the left knee. On the right side (side of the prosthesis) there is uptake around both sides of the femoral condyle c omponent of the prosthesis. No abnormal uptake around the long femoral stem component. With regards to the tibial component there is some focal uptake seen subjacent to the lateral aspect of the tibial plateau component. However, please note that this is an area of abnormal chronic findi ngs on plain films and the amount of uptake at this level on these delayed images and is actually les s than was evident on the delayed images of nuclear bone scan of October 2021. There is delayed uptake in the right patella again noted, most probably related to the prior resurfac ing. DELAYED WHOLE BODY IMAGES: There is no other abnormal significant uptake in the skeleton with the exception of symmetrical uptak e at the sternoclavicular joints which is most probably degenerative as well as in the medial aspect of the right ankle-tibiotalar joint region is also most probably degenerative. IMPRESSION: 1. Findings are concerning for an element of aseptic loosening of the femoral component the right kne e prosthesis at the level of the femoral condyles. There is no abnormal uptake around the femoral st em. 2. No convincing evidence of loosening of the tibial plateau component. DATA REPOSITORY:
--- NOTE | 2024-04-05 16:53 | DI.VRAD_ITS ---
PROCEDURE INFORMATION: Exam: CT Right Lower Extremity, Knee Exam date and time: 04/05/2024 11:14 AM Age: 48 years old Clinical indication: Condition or disease; Other: Right knee pain , h/o revision total knee, TECHNIQUE: Imaging protocol: CT of the right lower extremity without contrast was performed. Exam focused on the knee. Radiation optimization: All CT scans at this facility use at least one of these dose optimization techniques: automated exposure control; mA and/or kV adjustment per patient size (includes targeted exams where dose is matched to clinical indication); or iterative reconstruction. COMPARISON: MRI - R LOWER EXT WO/W 01/27/2018 5:08 PM FINDINGS: Limitations: Artifact from metallic knee implant. Bones/joints: There is a curvilinear defect undermining the anterior cement bone interface in the lateral knee compartment. When viewed in the lateral plane in irregular linear defect appears to extend posteriorly to the tibiofibular joint and in areas where there is no bone cement. The findings can be best viewed in respect to sagittal series 8 images 35-46. There is sclerosis and cortical irregularity along the far lateral margin of the tibia also seen in conjunction with severe degenerative change at the tibiofibular joint, all findings considered most compatible with old injury. No significant knee joint effusion. Soft tissues: Unremarkable. Vasculature: Normal. IMPRESSION: Nondisplaced fracture along the cement bone interface in the anterolateral knee extending posteriorly to tibiofibular joint. Dictated and Authenticated by: Blair Vázquez MD. Ordering:GABRIELLA Iqbal MD
== END 2024-04-05 01:45 ==
LOC: DI 01:25
PROVIDERS: PCP Family Medicine; Visit Provider Student in an Organized Health Care Education/Training Program
DX: Z96.651 Presence of right artificial knee joint (principal); Z47.1 Aftercare following joint replacement surgery
CPT/HCPCS: 73700; 78315

== ENCOUNTER 2024-05-23 16:41 | Outpatient (REF) | payer MEDICAID, SELFPAY ==
[2024-05-27 14:55] LABS: Noroxycodone-by LC-MS/MS Negative ng/mL (Cutoff: 25); Noroxymorphone-by LC-MS/MS Negative ng/mL (Cutoff: 25); Oxycodone Interpretation Negative.; Oxycodone-by LC-MS/MS Negative ng/mL (Cutoff: 25); Oxymorphone-by LC-MS/MS Negative ng/mL (Cutoff: 25)
== END 2024-05-23 16:42 | disposition home or self-care (01) ==
LOC: NCHCN 16:41
PROVIDERS: PCP Family Medicine; Visit Provider Family Medicine
DX: Z51.81 Encounter for therapeutic drug level monitoring (principal)
CPT/HCPCS: 80365; 80346

== ENCOUNTER 2024-07-19 09:01 | Outpatient (CLI) | payer MEDICAID, SELFPAY ==
[2024-07-19 09:03] LABS: Abs Immature Grans 0.07 10^3/uL (0.0-0.06); Absolute Basophil Count 0.08 10^3/uL (0.0-0.2); Absolute Eosinophil Count 0.51 10^3/uL (0.0-0.7); Absolute Lymphocyte Count 2.23 10^3/uL (1.2-3.4); Absolute Monocyte Count 0.71 10^3/uL (0.1-0.8); Absolute Neutrophil Count 8.25 10^3/uL (1.2-6.7); Basophils % 0.7 %; Eosinophils % 4.3 %; Immature Grans % 0.6 %; Lymphocytes % 18.8 %; MCH 28.5 pg (27.0-33.0); MCHC 33.3 % (32.0-36.0); MCV 86 fL (80-95); MPV 10.1 fL (8.0-11.0); Neutrophils % 69.6 %; Platelet Count 315 10^3/uL (130-400); RBC 5.26 10^6/uL (4.36-5.78); RDW 13.1 % (11.8-14.1); RDW-SD 41.2 fL; WBC 11.85 10^3/uL (4.4-10.8)
[2024-07-19 09:10] LABS: ESR 9 mm/hr (0-15)
[2024-07-19 09:20] LABS: ALT 57 U/L (16-63); AST 34 U/L (15-37); Alkaline Phosphatase 138 U/L (46-116); Anion Gap 8.1 mmol/L (3-11); BUN 8 mg/dL (7-18); Bilirubin, Total 0.49 mg/dL (0.2-1.0); CO2 26.9 mmol/L (21.0-32.0); Calcium 8.9 mg/dL (8.5-10.1); Chloride 104 mmol/L (98-107); Glucose 122 mg/dL (74-106); Potassium 4.2 mmol/L (3.5-5.1); Sodium 139 mmol/L (136-145); Total Protein 7.6 g/dL (6.4-8.2)
[2024-07-19 09:24] LABS: *AMPHETAMINES SCREEN URINE Negative (Negative); *BARBITURATES SCREEN URINE Negative (Negative); *BENZODIAZEPINES SCREEN URINE Negative (Negative); Cannabinoids THC Negative (Negative); Cocaine Screen,Urine Negative (Negative); METHADONE URINE SCREEN Negative (Negative); OPIATES URINE SCREEN Negative (Negative)
[2024-07-19 09:25] LABS: Tricyclic Antidepressants Negative (Negative)
[2024-07-22 15:54] LABS: Noroxycodone-by LC-MS/MS Negative ng/mL (Cutoff: 25); Noroxymorphone-by LC-MS/MS Negative ng/mL (Cutoff: 25); Oxycodone Interpretation Negative.; Oxycodone-by LC-MS/MS Negative ng/mL (Cutoff: 25); Oxymorphone-by LC-MS/MS Negative ng/mL (Cutoff: 25)
[2024-08-03 10:24] LABS: Misc Referral (MAYO) See Comments
== END 2024-07-19 09:02 | disposition home or self-care (01) ==
LOC: LBO 09:03
PROVIDERS: PCP Family Medicine; Visit Provider Family Medicine
DX: M23.41 Loose body in knee, right knee (principal); D72.829 Elevated white blood cell count, unspecified; Z51.81 Encounter for therapeutic drug level monitoring; F41.9 Anxiety disorder, unspecified
CPT/HCPCS: 36415; 80053; 80307; 80346; 80365; 85652; 85025

== ENCOUNTER 2024-09-05 14:12 | Outpatient (CLI) | payer MEDICAID, SELFPAY ==
--- NOTE | 2024-09-05 13:08 | DI.RAD_ITS ---
Exam(s) XR CHEST 2V PA LATERAL EXAM: XR CHEST 2V PA LATERAL CLINICAL HISTORY: J06.9 Acute upper respiratory infection TECHNIQUE: 2D digital imaging was performed of the chest. Two images were obtained. PA and lateral views were obtained. COMPARISON: CR LEFT RIBS TO INCLUDE CXR from 05/03/2013 CR LEFT SHOULDER COMPLETE from 11/19/2015 FINDINGS: MEDIASTINUM: Normal. HEART: Normal. PULMONARY VASCULATURE: Normal. LUNGS: There is peribronchial thickening bilaterally. No focal consolidating infiltrates are seen. PLEURAL SPACE: No pleural effusion or pneumothorax. BONE:Within normal limits for the patient's age. OTHER FINDINGS:The patient has bilateral nipple rings in place. IMPRESSION: 1. Bilateral peribronchial thickening which can be seen with bronchiolitis and other small airways in flammatory diseases. 2. No focal consolidations. DATA REPOSITORY: RADIATION DOSE DELIVERED:
== END 2024-09-05 14:32 ==
LOC: DI 14:15
PROVIDERS: PCP Family Medicine; Visit Provider Family Medicine
DX: J06.9 Acute upper respiratory infection, unspecified (principal)
CPT/HCPCS: 71046

== ENCOUNTER 2024-12-13 08:49 | Outpatient (CLI) | payer MEDICAID, SELFPAY ==
--- NOTE | 2024-12-13 | DI.RAD_ITS ---
Exam(s) XR ELBOW RT COMPLETE EXAM: XR ELBOW RT COMPLETE CLINICAL HISTORY: Rt elbow pain, M25.521 x 2-3 weeks, prior cubital tunnel release sx for. TECHNIQUE: 2D digital imaging was performed. Three views. COMPARISON: CR RIGHT ELBOW COMPLETE from 10/26/2013 FINDINGS: BONES: No acute fracture is present. No bony destructive lesion is seen. JOINTS: The elbow is normally aligned. No joint effusion is seen. The joint spaces are maintained. Periarticular spurring. SOFT TISSUE: Normal. No abnormal gas collection or foreign body. IMPRESSION: Degenerative changes. DATA REPOSITORY: RADIATION DOSE DELIVERED:
== END 2024-12-13 09:09 ==
LOC: DI 08:50
PROVIDERS: PCP Family Medicine; Visit Provider Family Medicine
DX: M25.521 Pain in right elbow (principal)
CPT/HCPCS: 73080

== ENCOUNTER 2025-03-20 12:45 | Outpatient (REF) | payer MEDICAID, SELFPAY ==
[2025-03-20 16:46] LABS: Abs Immature Grans 0.04 10^3/uL (0.0-0.06); HCT 42.5 % (40.0-50.0); HGB 14.0 g/dL (13.5-17.5); Immature Grans % 0.4 %; MCH 28.2 pg (27.0-33.0); MCHC 32.9 % (32.0-36.0); MCV 86 fL (80-95); MPV 10.9 fL (8.0-11.0); Platelet Count 364 10^3/uL (130-400); RBC 4.96 10^6/uL (4.36-5.78); RDW 13.4 % (11.8-14.1); RDW-SD 42.1 fL; WBC 10.48 10^3/uL (4.4-10.8)
[2025-03-20 17:10] LABS: Hemoglobin A1C 5.9 % (<5.7)
[2025-03-20 17:44] LABS: ALT 39 U/L (16-63); AST 23 U/L (15-37); Albumin 4.2 g/dL (3.4-5.0); Alkaline Phosphatase 133 U/L (46-116); Anion Gap 9.0 mmol/L (3-11); BUN 12 mg/dL (7-18); Bilirubin, Total 0.3 mg/dL (0.2-1.0); CO2 26.0 mmol/L (21.0-32.0); Calcium 9.6 mg/dL (8.5-10.1); Chloride 103 mmol/L (98-107); Estimated GFR 114.37 (mL/min/1.73m2); Glucose 118 mg/dL (74-106); Potassium 4.5 mmol/L (3.5-5.1); Sodium 138 mmol/L (136-145); Total Protein 7.7 g/dL (6.4-8.2)
== END 2025-03-20 12:46 | disposition home or self-care (01) ==
LOC: NCHCN 12:45
PROVIDERS: PCP Family Medicine; Visit Provider Family Medicine
DX: Z13.1 Encounter for screening for diabetes mellitus (principal); R53.83 Other fatigue
CPT/HCPCS: 80053; 83036; 85025

== ENCOUNTER 2025-06-24 15:47 | Emergency (ER) | payer MEDICAID, SELFPAY ==
[2025-06-24 15:57] VITALS: BP 179/106; PULSE 99; RESP 14; TEMP 36.9; O2SAT 99
--- NOTE | 2025-06-24 16:17 | W.ED.GENAD ---
Discharge Plan Disposition Patient Disposition: Home Condition: Fair Discharge Details Clinical Impression: Opiate withdrawal Primary Care Provider: Rachel Montenegro V ED Provider: Jack Sweet Home Meds and New Rx's Prescriptions: No Action losartan 100 mg tablet 100 mg PO DAILY clonidine HCl 0.1 mg tablet 0.1 mg PO QHS pantoprazole 40 mg tablet,delayed release (DR/EC) 40 mg PO DAILY buprenorphine-naloxone [Suboxone] 2-0.5 mg film 1 film buccal DAILY Rx Instructions: place 1 strip/tab under (each) side of tongue ibuprofen 800 mg tablet 800 mg PO TID duloxetine 30 mg capsule,delayed release(DR/EC) 30 mg PO BID Patient Comments: TAKE ONE CAPSULE BY MOUTH TWICE A DAY Discharge Instructions Instructions: Prescription Drug Withdrawal (DC) Additional Instructions: Call your Suboxone provider tomorrow to arrange for a new prescription. Stand Alone Forms: Portal Information HPI General Date/Time Provider Initiated Documentation: 06/24/25 15:58. HPI Narrative: This is a 49-year-old male presenting to the emergency department with a chief complaint of feeling unwell. Patient has a past medical history of GERD, spinal stenosis, chronic pain, anxiety. He is on Suboxone and missed his appointment on Wednesday. He reports that he thought he could make it till Wednesday to get his new prescription but is feeling very poorly and presents hoping for a single dose. He states that he is nauseated and tremulous. He feels sweaty. He has not had other recent illnesses or injuries. No fevers or rash. No cough or congestion. No injuries. No other complaints concerns. Related Data Home Medications Medication Instructions Recorded Confirmed buprenorphine 2 mg-naloxone 0.5 mg 1 film buccal DAILY 04/05/23 06/24/25 sublingual film (Suboxone) clonidine HCl 0.1 mg tablet 0.1 mg PO QHS 04/05/23 06/24/25 ibuprofen 800 mg tablet 800 mg PO TID 04/05/23 06/24/25 losartan 100 mg tablet 100 mg PO DAILY 04/05/23 06/24/25 pantoprazole 40 mg tablet,delayed 40 mg PO DAILY 04/05/23 06/24/25 release duloxetine 30 mg capsule,delayed 30 mg PO BID 06/24/25 06/24/25 release Allergies Allergy/AdvReac Type Severity Reaction Status Date / Time pregabalin (From Lyrica) Allergy Intermediate Other (See Verified 06/24/25 16:00 Comment) simvastatin Allergy Intermediate Unknown Verified 06/24/25 16:00 gabapentin AdvReac Intermediate Psychosis Verified 06/24/25 16:00 lisinopril AdvReac Mild Cough Verified 06/24/25 16:00 General Stated Complaint: DrugWithdr/MAT STACI: 4 Review of Systems All systems reviewed & are unremarkable except as noted in HPI and below Constitutional Constitutional: Reports system reviewed and no additional complaints, except as documented, Denies fever(s), Reports malaise, Denies weakness and Denies weight loss Comments: Tremulous Eyes Eyes: Denies blurry vision ENT Ears, Nose, Mouth, and Throat: Denies sore throat Cardiovascular Cardiovascular: Denies chest pain, Denies palpitations and Denies dyspnea Respiratory Respiratory: Denies cough, Denies dyspnea and Denies wheezing Gastrointestinal Gastrointestinal: Denies abdominal pain, Denies diarrhea, Reports nausea and Denies vomiting Genitourinary Genitourinary: Denies hematuria and Denies dysuria Musculoskeletal Musculoskeletal: Denies back pain, Denies arthralgias and Denies numbness Neurologic Neurologic: Denies numbness and Denies weakness Psychiatric Psychiatric: Denies suicidal ideation Endocrine Endocrine: Denies palpitations Allergic/Immunologic Allergic/Immunologic: Denies wheezing Exam Const General: no acute distress and well groomed HENMT Mouth: oral mucosae normal and moist mucous membranes Throat: posterior oropharynx normal Eyes Conjunctivae: conjunctivae normal Sclera: sclerae normal Neck Neck: full ROM and No JVD Resp Effort & Inspection: normal respiratory effort Auscultation: clear to auscultation bilaterally Cardio Rate: regular rate Rhythm: regular rhythm Heart Sounds: no murmurs GI Palpation: soft and nontender Skin General skin exam: no rashes or lesions noted Neuro General: patient alert and patient oriented x3 Extrem General: normal to inspection and full ROM Psych Appearance: grossly normal Mental Status: mental status grossly normal Speech and Movement: speech and movement normal Affect: normal affect Thought Process: normal Course Is a 49-year-old male presenting to the emergency department with a request for a single dose of Suboxone. Cultures were reviewed and nursing notes were reviewed. Patient was last seen a couple of weeks ago in [facility] care for olecranon bursitis. This is unrelated. Patient was provided a single dose of Suboxone. He reports that he believes he will be able to get in touch with his provider tomorrow. He has no other complaints or concerns. Vital Signs Vital signs: Vital Signs Temperature 36.9 C 06/24/25 15:57 Pulse 99 H 06/24/25 15:57 Respiratory Rate 14 06/24/25 15:57 Blood Pressure 179/106 H 06/24/25 15:57 Pulse Oximetry 99 06/24/25 15:57 Temperature 36.9 C 06/24/25 15:57 Temperature Source Oral 06/24/25 15:57 Pulse 99 H 06/24/25 15:57 Respiratory Rate 14 06/24/25 15:57 Blood Pressure 179/106 H 06/24/25 15:57 Blood Pressure Position Sitting 06/24/25 15:57 Pulse Oximetry 99 06/24/25 15:57 Oxygen Delivery Method Room Air 06/24/25 15:57 Oxygen Flow Rate 0 06/24/25 15:57 PFSH All Active Problems (Updated 06/24/25 @ 16:23 by Jack Sweet MD) Opiate withdrawal (Acute) Mechanical loosening of internal right knee prosthetic joint (Acute) Solitary bone cyst, right tibia and fibula (Acute) History of revision of total replacement of right knee joint (Acute 10/29/21) Intraosseous ganglion (Acute) 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 beneath tibial component of TKA Noted on x-ray and MRI S/P ganglion cyst excision DOS: 07/02/19 Aspiration of recurrence on anterolateral proximal tibia: 11/01/2018; 02/08/2019 Anxiety (Chronic) Posterior tibial artery injury (Acute 01/22/20) Laceration of ankle, left, complicated (Acute 01/22/20) 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 (Acute 01/22/20) No-show for appointment (Acute) Painful orthopaedic hardware (Acute) Painful total knee replacement, right (Acute) REVISION Medical History Situational depression Low back pain History of tobacco use Diverticulosis of colon Hyperlipidemia Cervical spinal stenosis Chronic pain of right knee Bilateral elbow joint pain Anxiety disorder Contusion of lung, unilateral, sequela Skin lesion Pain of right sacroiliac joint Insomnia disorder related to known organic factor Encounter for smoking cessation counseling Cervicalgia Paresthesias Arthralgia Urinary frequency Medication management Lesion of left tibial nerve Bright red blood per rectum Stye Traumatic rupture of symphysis pubis Bone lesion Pelvic pain Hypertension Lumbar radiculopathy Erectile dysfunction Surgical History Hx of colonoscopy History of knee replacement procedure of right knee x2 H/O arthroscopy of right knee right knee w/ partial meniscectomy in 2007 by CDDx2. Other arthroscopies right knee since 2007 x 2 Family History Mother No problems noted. Father Tremor Anxiety Paternal Aunt Lung cancer Social History Smoking/Tobacco Use Status: Current every day Tobacco Type: cigarettes Years smoked: 30 Tobacco: How many years used: 20 Smoking risk assessment performed?: Yes Alcohol Intake: never Drug use: Never Substance use type: does not use Current gender identity: male Do you feel safe at home: Yes Do you feel safe in your relationship?: Yes Additional Social history: not able to asess, family at bedside
[2025-06-24] MEDS: Buprenorphine/Naloxone 2 mg/0.5 mg FILM 1 EACH SL (16:35)
== END 2025-06-24 16:57 | disposition home or self-care (01) ==
LOC: ER 16:31
PROVIDERS: Emergency Provider Emergency Medicine; PCP Family Medicine
DX: F11.93 Opioid use, unspecified with withdrawal (principal)
CPT/HCPCS: 99283 ×2

== ENCOUNTER 2025-07-03 15:59 | Outpatient (CLI) | payer MEDICAID, SELFPAY ==
--- NOTE | 2025-07-03 14:45 | DI.RAD_ITS ---
Exam(s) XR ELBOW RT LIMITED EXAM: XR ELBOW RT LIMITED CLINICAL HISTORY: elbow pain. TECHNIQUE: 2D digital imaging was performed. Two views. COMPARISON: CR XR ELBOW RT COMPLETE from 12/13/2024 FINDINGS: BONES: No acute fracture is present. No bony destructive lesion is seen. JOINTS: There is narrowing of the radial capitellar joint and mild periarticular spurring Ronald the articular aspect of the olecranon. The elbow is normally aligned. No joint effusion is seen. SOFT TISSUE: Swelling around the olecranon consistent with olecranon bursitis. IMPRESSION: Olecranon bursitis. Degenerative changes of the elbow. DATA REPOSITORY: RADIATION DOSE DELIVERED:
== END 2025-07-03 16:00 | disposition home or self-care (01) ==
LOC: DIORS 15:59
PROVIDERS: PCP Family Medicine; Visit Provider Physician Assistant
DX: M70.21 Olecranon bursitis, right elbow (principal); M19.021 Primary osteoarthritis, right elbow
CPT/HCPCS: 73070

== ENCOUNTER → 2025-08-01 00:07 | Outpatient (CLI) | payer MEDICAID, SELFPAY ==
--- NOTE | 2025-08-01 12:15 | DI.MRI_ITS ---
Exam(s) MR UPPER JOINT RT WO EXAM: MR UPPER JOINT RT WO CLINICAL HISTORY: R ELBOW PAIN M70.21 OLECRANON BURSITIS RT ELBOW. TECHNIQUE: Multiplanar multisequence MRI was performed. COMPARISON: CR XR ELBOW RT LIMITED from 07/03/2025 FINDINGS: The examination is limited due to patient motion artifact. BONES: There is no fracture or contusion pattern. JOINTS: There is thinning of the articular cartilage overlying the capitellum. No joint effusion is present. TENDONS: Common flexors: Unremarkable. Common extensors: Unremarkable. Biceps: Unremarkable. Triceps: Unremarkable. MUSCLES: Unremarkable. MEDIAN NERVE: Unremarkable on this noncontrast examination. ULNAR NERVE: Unremarkable on this noncontrast examination. SOFT TISSUES: There is a fluid collection seen in the subcutaneous tissues between the skin and the triceps tendon and olecranon. The fluid collection measures 3.3 transverse by 2.8 AP by 4.3 craniocaudad. It is homogeneously hyperintense on T2 and hypointense on T1 weighted images. There is no associated soft tissue mass. There is mild edema seen in the surrounding soft tissues. The findings are suspicious for olecranon bursitis. LIGAMENTS: Ulnar collateral: Unremarkable. Radial collateral: Unremarkable. OTHER: IMPRESSION: Findings consistent with olecranon bursitis. DATA REPOSITORY:
== END ==
LOC: DI 00:07
PROVIDERS: PCP Family Medicine; Visit Provider Student in an Organized Health Care Education/Training Program
DX: M70.21 Olecranon bursitis, right elbow (principal)
CPT/HCPCS: 73221

== ENCOUNTER 2025-08-01 09:09 | Emergency (ER) | payer MEDICAID, SELFPAY ==
[2025-08-01 09:13] VITALS: BP 138/78; PULSE 103; RESP 16; TEMP 36.7; O2SAT 99
--- NOTE | 2025-08-01 09:31 | W.ED.GENAD ---
Discharge Plan Disposition Patient Disposition: Home Condition: Stable Discharge Details Clinical Impression: Olecranon bursitis, right elbow Primary Care Provider: Rachel Montenegro V ED Provider: David Ortiz Home Meds and New Rx's Prescriptions: New prednisone 20 mg tablet 60 mg PO DAILY 5 Days Qty: 15 0RF clindamycin HCl 150 mg capsule 450 mg PO TID 7 Days Qty: 63 0RF Continued losartan 100 mg tablet 100 mg PO DAILY clonidine HCl 0.1 mg tablet 0.1 mg PO QHS pantoprazole 40 mg tablet,delayed release (DR/EC) 40 mg PO DAILY buprenorphine-naloxone [Suboxone] 2-0.5 mg film 1 film buccal DAILY Rx Instructions: place 1 strip/tab under (each) side of tongue ibuprofen 800 mg tablet 800 mg PO TID acetaminophen 650 mg tablet extended release 650 mg PO Q8H buspirone 7.5 mg tablet 7.5 mg PO QID duloxetine 30 mg capsule,delayed release(DR/EC) 30 mg PO BID Patient Comments: TAKE ONE CAPSULE BY MOUTH TWICE A DAY Discharge Instructions Additional Instructions: Take the antibiotic and prednisone as prescribed. I would recommend proceeding with the MRI as scheduled today and following up with orthopedics. Try to keep your elbow elevated and using ice as well as topical medications such as diclofenac can help. You can take 1000 mg of acetaminophen and 600 mg of ibuprofen every 6 hours as needed. If you feel more ill or have new symptoms such as high fevers return to the emergency department for reevaluation. Stand Alone Forms: Portal Information HPI General Mode of arrival: ambulatory. Date/Time Provider Initiated Documentation: 08/01/25 09:11. Limitations to Documentation: no limitations. Information obtained by: patient. History of Present Illness 49 year old M presents to the emergency department with the chief complaint of right elbow area swelling, described as moderate, Patient started experiencing this month(s) (3) and it has been constant. No relieving factors improve symptom(s), No exacerbating factors reported . Patient notes denies fever/chills. Related Data Home Medications ?Medication ?Instructions ?Recorded ?Confirmed buprenorphine 2 mg-naloxone 0.5 mg 1 film buccal DAILY 04/05/23 08/01/25 sublingual film (Suboxone) clonidine HCl 0.1 mg tablet 0.1 mg PO QHS 04/05/23 08/01/25 ibuprofen 800 mg tablet 800 mg PO TID 04/05/23 08/01/25 losartan 100 mg tablet 100 mg PO DAILY 04/05/23 08/01/25 pantoprazole 40 mg tablet,delayed 40 mg PO DAILY 04/05/23 08/01/25 release duloxetine 30 mg capsule,delayed 30 mg PO BID 06/24/25 08/01/25 release acetaminophen 650 mg 650 mg PO Q8H 07/03/25 08/01/25 tablet,extended release buspirone 7.5 mg tablet 7.5 mg PO QID 07/03/25 08/01/25 clindamycin HCl 150 mg capsule 450 mg (3 x 150 mg) PO TID 7 days 08/01/25 #63 caps prednisone 20 mg tablet 60 mg (3 x 20 mg) PO DAILY 5 days 08/01/25 #15 tabs Previous Rx's ?Medication ?Instructions ?Recorded clindamycin HCl 150 mg capsule 450 mg (3 x 150 mg) PO TID 7 days 08/01/25 #63 caps prednisone 20 mg tablet 60 mg (3 x 20 mg) PO DAILY 5 days 08/01/25 #15 tabs Allergies Allergy/AdvReac Type Severity Reaction Status Date / Time pregabalin (From Lyrica) Allergy Intermediate Other (See Verified 08/01/25 09:19 Comment) simvastatin Allergy Intermediate Unknown Verified 08/01/25 09:19 gabapentin AdvReac Intermediate Psychosis Verified 08/01/25 09:19 lisinopril AdvReac Mild Cough Verified 08/01/25 09:19 General Stated Complaint: Orthopedic STACI: 4 Review of Systems All systems reviewed & are unremarkable except as noted in HPI and below Constitutional Constitutional: Denies chills, Denies fever(s) and Denies weakness Cardiovascular Cardiovascular: Denies chest pain and Denies dyspnea Respiratory Respiratory: Denies cough and Denies dyspnea Gastrointestinal Gastrointestinal: Denies vomiting Musculoskeletal Musculoskeletal: Reports joint swelling Neurologic Neurologic: Denies weakness Exam Const General: no acute distress Orientation: alert HENWV Head: normal to inspection Ears: external ears normal General nose exam: external nose normal Mouth: moist mucous membranes Eyes General: appearance normal, both eyes and all related structures Neck Neck: normal visual inspection Resp Effort & Inspection: normal respiratory effort and able to speak in complete sentences Cardio Rate: regular rate Neuro General: patient alert and patient oriented x3 Extrem General: full ROM and capillary refill normal Psych Mental Status: mental status grossly normal Course Vital Signs Vital signs: Vital Signs Temperature 36.7 C 08/01/25 09:13 Pulse 103 H 08/01/25 09:13 Respiratory Rate 16 08/01/25 09:13 Blood Pressure 138/78 08/01/25 09:13 Pulse Oximetry 99 08/01/25 09:13 Temperature 36.7 C 08/01/25 09:13 Temperature Source Temporal Artery Scan 08/01/25 09:13 Pulse 103 H 08/01/25 09:13 Respiratory Rate 16 08/01/25 09:13 Blood Pressure 138/78 08/01/25 09:13 Blood Pressure Position Sitting 08/01/25 09:13 Pulse Oximetry 99 08/01/25 09:13 Oxygen Delivery Method Room Air 08/01/25 09:13 Oxygen Flow Rate 0 08/01/25 09:13 Pain Level 10 08/01/25 09:22 Comment ibuprofen and Tylenol without relief 08/01/25 09:13 Medical Decision Making 49-year-old male whose had issues with olecranon bursitis of his right elbow for few months and is scheduled to have an MRI today comes in stating has had increased pain in redness in the area over the last couple days. He denies any fevers or severe pain. He does have swelling and mild erythema of the olecranon bursa. There is no swelling in the elbow itself. He has full range of motion of the elbow with intact distal sensation and pulses. Exam is consistent with olecranon bursitis. I discussed draining it but he says she has had it drained before and it accumulated the next day. He declines to have a drain which I feel is reasonable. Given the mild erythema I am mahamed start him on clindamycin, I am questioning if he could have some type of arthritis such as gout as well so I am going to put him on prednisone as well. He will follow-up with orthopedics as scheduled and return precautions given. Differential Diagnosis Differential Diagnosis: bursitis, cellulitis PFSH All Active Problems (Updated 08/01/25 @ 09:33 by David Ortiz MD) Olecranon bursitis, right elbow (Acute) Olecranon bursitis, right elbow (Acute) Mechanical loosening of internal right knee prosthetic joint (Acute) Solitary bone cyst, right tibia and fibula (Acute) History of revision of total replacement of right knee joint (Acute 10/29/21) Intraosseous ganglion (Acute) 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 beneath tibial component of TKA Noted on x-ray and MRI S/P ganglion cyst excision DOS: 07/02/19 Aspiration of recurrence on anterolateral proximal tibia: 11/01/2018; 02/08/2019 Anxiety (Chronic) Posterior tibial artery injury (Acute 01/22/20) Laceration of ankle, left, complicated (Acute 01/22/20) 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 (Acute 01/22/20) No-show for appointment (Acute) Painful orthopaedic hardware (Acute) Painful total knee replacement, right (Acute) REVISION Medical History Situational depression Low back pain History of tobacco use Diverticulosis of colon Hyperlipidemia Cervical spinal stenosis Chronic pain of right knee Bilateral elbow joint pain Anxiety disorder Contusion of lung, unilateral, sequela Skin lesion Pain of right sacroiliac joint Insomnia disorder related to known organic factor Encounter for smoking cessation counseling Cervicalgia Paresthesias Arthralgia Urinary frequency Medication management Lesion of left tibial nerve Bright red blood per rectum Stye Traumatic rupture of symphysis pubis Bone lesion Pelvic pain Hypertension Lumbar radiculopathy Erectile dysfunction Surgical History Hx of colonoscopy History of knee replacement procedure of right knee x2 H/O arthroscopy of right knee right knee w/ partial meniscectomy in 2007 by CDDx2. Other arthroscopies right knee since 2007 x 2 Family History Mother No problems noted. Father Tremor Anxiety Paternal Aunt Lung cancer Social History Smoking/Tobacco Use Status: Current every day Tobacco Type: cigarettes Years smoked: 30 Tobacco: How many years used: 20 Smoking risk assessment performed?: Yes Alcohol Intake: never Drug use: Never Substance use type: does not use Housing: apartment Current gender identity: male Do you feel safe at home: Yes Do you feel safe in your relationship?: Yes
[2025-08-01] MEDS: Clindamycin 150 MG CAP 450 MG PO (09:33)
== END 2025-08-01 09:39 | disposition home or self-care (01) ==
PROVIDERS: Emergency Provider Emergency Medicine; PCP Family Medicine
DX: M70.21 Olecranon bursitis, right elbow (principal)
CPT/HCPCS: 99283 ×2

== ENCOUNTER 2025-08-05 09:56 | Inpatient (IN) | payer MEDICAID, SELFPAY ==
[2025-08-05 10:01] VITALS: BP 160/77; PULSE 95; RESP 18; TEMP 36.5; O2SAT 98
[2025-08-05 10:08] VITALS: BP 160/77; PULSE 95; RESP 18; TEMP 36.5; O2SAT 98
--- NOTE | 2025-08-05 10:15 | DI.RAD_ITS ---
Exam(s) XR ELBOW RT COMPLETE EXAM: XR ELBOW RT COMPLETE CLINICAL HISTORY: R elbow swelling. TECHNIQUE: 2D digital imaging was performed. COMPARISON: CR XR ELBOW RT LIMITED from 07/03/2025 FINDINGS: 3 views There is prominent soft tissue swelling of the olecranon bursa. No evidence of fracture or elbow joint effusion. Radial head and neck are intact. Capitellum intact. No loose intra-articular bodies. IMPRESSION: Swelling of the olecranon bursa consistent with probable olecranon bursitis. There is no radiopaque foreign body. No fracture evident. DATA REPOSITORY: RADIATION DOSE DELIVERED:
--- NOTE | 2025-08-05 10:19 | ED.GENADUL_ITS ---
Discharge Plan Disposition Patient Disposition: Admit to [facility] Condition: Stable Discharge Details Clinical Impression: Septic olecranon bursitis of right elbow Admit Date/Time: 08/05/25 14:40 Admit Provider: Darell Nielsen Attending Provider: Darell Nielsen Primary Care Provider: Rachel Montenegro V ED Provider: Jack Olivas HPI General Date/Time Provider Initiated Documentation: 08/05/25 10:18 . HPI Narrative: 49 year-old male presents to ED today by POV/ambulating with a chief complaint of R elbow swelling, redness, warmth in the setting of known olecranon bursitis- planned for bursectomy on Aug [address] Saldivar, recently seen in ED for outpatient worsening and started on clindamycin and prednisone on 08/01 with significant worsening since then. Quality described as very red and swelling lump on R elbow, R-hand dominant, throbbing, warmth to touch, no radiation to active drainage, numbness/tingling distal, fever, red streaking outward. Severity is described as severe. Palliating factors include cannot tolerate Darien wraps anymore. Provoking factors include any movement. Patient not anticoagulated. Related Data Home Medications ?Medication ?Instructions ?Recorded ?Confirmed buprenorphine 2 mg-naloxone 0.5 mg 1 film buccal DAILY 04/05/23 08/05/25 sublingual film (Suboxone) clonidine HCl 0.1 mg tablet 0.1 mg PO QHS 04/05/23 ibuprofen 800 mg tablet 800 mg PO TID 04/05/2308/05 losartan 100 mg tablet 100 mg PO DAILY 04/05/23 pantoprazole 40 mg tablet,delayed 40 mg PO DAILY 04/0508/05/25 release duloxetine 30 mg capsule,delayed 30 mg PO BID 06/24/25 08/05/25 release acetaminophen 650 mg 650 mg PO Q8H 07/03/2508/05 tablet,extended release buspirone 7.5 mg tablet 7.5 mg PO QID 07/03/2508/05 clindamycin HCl 150 mg capsule 450 mg (3 x 150 mg) PO TID 7 days 08/01/25 08/05/25 #63 caps prednisone 20 mg tablet 60 mg (3 x 20 mg) PO DAILY 5 days 08/01/25 08/05/25 #15 tabs Previous Rx's ?Medication ?Instructions ?Recorded clindamycin HCl 150 mg capsule 450 mg (3 x 150 mg) PO TID 7 days 08/01/25 #63 caps prednisone 20 mg tablet 60 mg (3 x 20 mg) PO DAILY 5 days 08/01/25 #15 tabs Allergies Allergy/AdvReac Type Severity Reaction Status Date / Time pregabalin (From Lyrica) Allergy Intermediate Other (See Verified 08/05/25 10:07 Comment) simvastatin Allergy Intermediate Unknown Verified 08/05/25 10:07 gabapentin AdvReac Intermediate Psychosis Verified 08/05/25 10:07 lisinopril AdvReac Mild Cough Verified 08/05/25 10:07 General Stated Complaint: Cellulitis STACI: 3 Review of Systems All systems reviewed & are unremarkable except as noted in HPI and below Exam Narrative Exam Narrative: GENERAL APPEARANCE: Toxic, awake and alert, atraumatic, moderate acute distress. SKIN: Warm, pink, dry, intact, without rashes/lesions/ulcerations save for R elbow findings (see below). HEAD: Normocephalic, atraumatic, normal hair distribution for gender/age. EYES: Normal conjunctiva, no exudates on lids/lashes. ENT: Nares patent, no circumoral cyanosis, no facial swelling NECK: Supple, trachea midline, painless cervical ROM. LUNGS/CHEST: Non-labored respirations, normal A/P diameter, symmetrical expansion, no chest wall deformity HEART (CV/PV): Regular rate, no peripheral edema, no JVD. ABDOMEN: Soft, non-distended, no guarding. MSK: No cyanosis, spine midline without tenderness, normal curvature. R ELBOW: large swollen fluctuant erythematous and warm to touch bursa at the right elbow, right radial pulse 2+, pain with passive range of motion, no lymphadenitis, severe limited range of motion to the right elbow due to pain NEURO: Mental Status AAOx4 - alert to person, place, time, events No facial droop, no forehead involvement. Motor: No focal weakness Sensory: sensation intact to light touch globally. Gait normal: patient ambulated without ataxia into ED room. PSYCH: euthymic, cooperative, pleasant, appropriate speech Course Vital Signs Vital signs: Vital Signs Temperature 36.5 C 08/05/25 10:01 Pulse 95 H 08/05/25 10:01 Respiratory Rate 18 08/05/25 10:01 Blood Pressure 160/77 H 08/05/25 10:01 Pulse Oximetry 98 08/05/25 10:01 Temperature 36.5 C 08/05/25 10:08 Temperature Source Oral 08/05/25 10:08 Pulse 95 H 08/05/25 10:08 Respiratory Rate 18 08/05/25 10:08 Blood Pressure 160/77 H 08/05/25 10:08 Blood Pressure Position Sitting 08/05/25 10:08 Pulse Oximetry 98 08/05/25 10:08 Oxygen Delivery Method Room Air 08/05/25 10:08 Oxygen Flow Rate 0 08/05/25 10:01 Pain Level 10 08/05/25 10:01 Medical Decision Making This dictation utilizes [id number] dictation software and may contain unedited grammatical errors. 49 year-old male presents to ED today by POV/ambulating with a chief complaint of R elbow swelling, redness, warmth in the setting of known olecranon bursitis- planned for bursectomy on Aug [address] Saldivar, recently seen in ED for outpatient worsening and started on clindamycin and prednisone on 08/01 with significant worsening since then. Quality described as very red and swelling lump on R elbow, R-hand dominant, throbbing, warmth to touch, no radiation to active drainage, numbness/tingling distal, fever, red streaking outward. Severity is described as severe. Palliating factors include cannot tolerate Darien wraps anymore. Provoking factors include any movement. Patients' medical history: Hyperlipidemia, various orthopedic injuries, asthma, tobacco use. Family and social history: No recent travel or sick contacts, denies IVDU. Pertinent exam findings / vital signs include large swollen fluctuant erythematous and warm to touch bursa at the right elbow, right radial pulse 2+, pain with passive range of motion, no lymphadenitis, benign cardiopulmonary exam. Differential / pathologies of concern include septic bursitis, olecranon bursitis, gout, Lyme disease, RA. Diagnostic studies of: -CBC, CMP, lactate, blood cultures, CRP/ESR, uric acid, tick and Lyme panel, x- ray right elbow. - CBC shows leukocytosis at 16.8 with left shift - CRP 1.35, ESR mildly elevated at 22 - Lactate is 1.0 - CMP without actionable abnormality - Uric acid within normal limits - Tick and Lyme panel pending - Right elbow shows soft tissue swelling Interventions of: -[facility] [place] as in-house ortho not on-call today- spoke with Dr. Baca [facility]- recommends outpatient treatment with darien wrap, oral abx- but patient is actively failing these outpatient treatments that were already initiated, and has had drainage with immediate refilling of the bursa in <24 hours- has already planned procedure with [facility] ortho for Aug.14. In light of this [facility] orth[facility] suggests admit with IV antibiotics and in-house consult in the morning, which is reasonable. Dr. Nielsen accepted for admit at 1430. -Recommend IV clindamycin inpatient ED Course/Assessment/Plan: 49-year-old male presents with outpatient failure being treated for bursitis of the right elbow, he is on clindamycin for the past 4 days as well as prednisone and has tried Darien wrap's with recurrent bursitis nonresponsive to draining, refilled the next day after prior drainage at PCP, had recent visit with Ortho for MRI and has scheduled likely bursectomy on August 14, orthopedics is unavailable for consult in-house so I did consult with [facility] orthopedic resident who recommends treatments the patient is already on but failing in light of this they recommend admit for IV antibiotics so they can consult with inpatient orthopedist here as this is unlikely to be an emergent condition at normal he could be managed in the outpatient setting if he was responding to oral antibiotics while he awaits elective procedure. Disposition of Septic olecranon bursitis of right elbow. Patient verbalized understanding of the plan and return to ED criteria and engaged in shared decision making. Medical Records Medical records reviewed: Yes I reviewed the patient's medical records. Imaging Data Radiologic Study: Attestation: I personally reviewed and interpreted this imaging study as follows: Imaging: X-Ray Lab Data Lab results reviewed: Yes I reviewed the patient's lab results. Labs: 08/05/25 14:17 Blood Blood Culture - Pending 08/05/25 14:17 Blood Blood Culture - Pending Laboratory Tests Range/Units 08/05/25 08/05/25 08/05/25 11:50 11:58 14:10 WBC (4.4-10.8) 10^3/uL 16.84 H RBC (4.36-5.78) 10^6/uL 4.85 Hgb (13.5-17.5) g/dL 13.6 Hct (40.0-50.0) % 41.1 MCV (80-95) fL 85 MCH (27.0-33.0) pg 28.0 MCHC (32.0-36.0) % 33.1 RDW (11.8-14.1) % 13.0 Plt Count (130-400) 10^3/uL 401 H MPV (8.0-11.0) fL 10.4 Immature Gran % % 1.2 Neutrophils % % 70.6 Lymphocytes % % 18.4 Monocytes % % 6.0 Eosinophils % % 3.3 Basophils % % 0.5 Nucleated RBC % (0.0-0.3) % 0.0 Absolute Neutrophils (1.2-6.7) 10^3/uL 11.89 H Absolute Lymphocytes (1.2-3.4) 10^3/uL 3.10 Absolute Monocytes (0.1-0.8) 10^3/uL 1.01 H Absolute Eosinophils (0.0-0.7) 10^3/uL 0.56 Absolute Basophils (0.0-0.2) 10^3/uL 0.08 ESR (0-15) mm/hr 22 H VBG Lactate (<or=2.0) mmol/L 1.0 Sodium (136-145) mmol/L 139 Potassium (3.5-5.1) mmol/L 4.2 Chloride (98-107) mmol/L 105 Carbon Dioxide (20.0-31.0) mmol/L 27.4 Anion Gap (3-11) mmol/L 6.6 BUN (9-23) mg/dL 14 Creatinine (0.73-1.18) mg/dL 0.73 Est GFR (CKD-EPI 2020) (mL/min/1.73m2) 114.86 Glucose (74-106) mg/dL 91 Uric Acid (3.7-9.2) mg/dL 5.0 Calcium (8.3-10.6) mg/dL 9.1 Total Bilirubin (0.2-1.2) mg/dL 0.2 AST (<34) U/L 29 ALT (10-49) U/L 44 Alkaline Phosphatase (46-116) U/L 132 H C-Reactive Protein (<=0.50) mg/dL 1.35 H Total Protein (5.7-8.2) g/dL 7.6 Albumin (3.2-5.0) g/dL 4.6 PFSH All Active Problems (Updated 08/05/25 @ 14:47 by SABI Hernandez) Septic olecranon bursitis of right elbow (Acute) Olecranon bursitis, right elbow (Acute) Olecranon bursitis, right elbow (Acute) Mechanical loosening of internal right knee prosthetic joint (Acute) Solitary bone cyst, right tibia and fibula (Acute) History of revision of total replacement of right knee joint (Acute 10/29/21) Intraosseous ganglion (Acute) 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 beneath tibial component of TKA Noted on x-ray and MRI S/P ganglion cyst excision DOS: 07/02/19 Aspiration of recurrence on anterolateral proximal tibia: 11/01/2018; 02/08/2019 Anxiety (Chronic) Posterior tibial artery injury (Acute 01/22/20) Laceration of ankle, left, complicated (Acute 01/22/20) 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 (Acute 01/22/20) No-show for appointment (Acute) Painful orthopaedic hardware (Acute) Painful total knee replacement, right (Acute) REVISION Medical History Situational depression Low back pain History of tobacco use Diverticulosis of colon Hyperlipidemia Cervical spinal stenosis Chronic pain of right knee Bilateral elbow joint pain Anxiety disorder Contusion of lung, unilateral, sequela Skin lesion Pain of right sacroiliac joint Insomnia disorder related to known organic factor Encounter for smoking cessation counseling Cervicalgia Paresthesias Arthralgia Urinary frequency Medication management Lesion of left tibial nerve Bright red blood per rectum Stye Traumatic rupture of symphysis pubis Bone lesion Pelvic pain Hypertension Lumbar radiculopathy Erectile dysfunction Surgical History Hx of colonoscopy History of knee replacement procedure of right knee x2 H/O arthroscopy of right knee right knee w/ partial meniscectomy in 2007 by CDDx2. Other arthroscopies right knee since 2008 x 2 Family History Mother No problems noted. Father Tremor Anxiety Paternal Aunt Lung cancer Social History Smoking/Tobacco Use Status: Current every day Tobacco Type: cigarettes Years smoked: 30 Tobacco: How many years used: 20 Smoking risk assessment performed?: Yes Alcohol Intake: never Drug use: Never Substance use type: does not use Housing: apartment Current gender identity: male Do you feel safe at home: Yes Do you feel safe in your relationship?: Yes
[2025-08-05] MEDS: oxyCODONE 5 MG TAB PO (10:58)
--- NOTE | 2025-08-05 11:18 | DI.VRAD_ITS ---
PROCEDURE INFORMATION: Exam: XR Right Elbow Exam date and time: 08/05/2025 10:42 AM Age: 49 years old Clinical indication: Swelling; Elbow; Right TECHNIQUE: Imaging protocol: Radiologic exam of the right elbow. Views: 3 or more views. COMPARISON: MR UPPER JOINT RT WO 08/01/2025 2:11 PM FINDINGS: Bones/joints: Soft tissue swelling of the olecranon most consistent with olecranon bursitis.. There is no evidence of acute fracture.There is no evidence of malalignment or dislocation. Soft tissues: See Bones/joints finding. IMPRESSION: 1. Soft tissue swelling of the olecranon most consistent with olecranon bursitis.. 2. There is no evidence of acute fracture.There is no evidence of malalignment or dislocation. Dictated and Authenticated by: Cailin Anaya MD. Orderin Deisy Santiago MD
[2025-08-05 12:02] LABS: ESR 22 mm/hr (0-15)
[2025-08-05 12:23] LABS: Uric Acid 5.0 mg/dL (3.7-9.2)
[2025-08-05 12:25] LABS: C-Reactive Protein 1.35 mg/dL (<=0.50)
[2025-08-05 13:14] LABS: Abs Immature Grans 0.21 10^3/uL (0.0-0.06); HCT 41.1 % (40.0-50.0); HGB 13.6 g/dL (13.5-17.5); Immature Grans % 1.2 %; MCH 28.0 pg (27.0-33.0); MCHC 33.1 % (32.0-36.0); MCV 85 fL (80-95); MPV 10.4 fL (8.0-11.0); Platelet Count 401 10^3/uL (130-400); RBC 4.85 10^6/uL (4.36-5.78); RDW 13.0 % (11.8-14.1); RDW-SD 40.6 fL; WBC 16.84 10^3/uL (4.4-10.8)
[2025-08-05 13:23] LABS: ALT 44 U/L (10-49); AST 29 U/L (<34); Albumin 4.6 g/dL (3.2-5.0); Alkaline Phosphatase 132 U/L (46-116); Anion Gap 6.6 mmol/L (3-11); BUN 14 mg/dL (9-23); Bilirubin, Total 0.2 mg/dL (0.2-1.2); CO2 27.4 mmol/L (20.0-31.0); Calcium 9.1 mg/dL (8.3-10.6); Chloride 105 mmol/L (98-107); Glucose 91 mg/dL (74-106); Potassium 4.2 mmol/L (3.5-5.1); Sodium 139 mmol/L (136-145); Total Protein 7.6 g/dL (5.7-8.2)
--- NOTE | 2025-08-05 14:42 | W.PM.HP.N ---
Date of service: 08/05/25 Time of Service: 14:00 Assessment and Plan Assessment and plan (1) Septic olecranon bursitis of right elbow: Status: Acute Assessment and plan: Acute on chronic problem Discussed with Dr Sinha who will kindly consult Likely to OR WednesdayAug 06 Started vanc & pip+tazo Scheduled and PRN narcotics, pain is reportedly severe NPO at midnight (2) Opioid use disorder, severe, on maintenance therapy, dependence: Status: Acute Assessment and plan: Continue suboxone Will need to coordinate with [facility] clinic at discharge to resume (3) Anxiety: Status: Chronic Assessment and plan: Continue home buspirone (4) Benign hypertension: Status: None Assessment and plan: Continue home losartan (5) Gastroesophageal reflux disease: Status: None Assessment and plan: Continue home PPI History of Present Illness History of Present Illness Chief Complaint: right elbow pain Narrative: Satish Pedraza is a 49 year old man presenting August 05 with worsening right elbow pain, redness and swelling. He had his olecranon bursa drained in May, and since then has had fluid accumulating with pain causing him to be unable to sleep. He most recently has been on doxycycline and prednisone, started August 01. He has bursectomy scheduled with Dr Park on August 14. On arrival he reports severe pain, partially relieved with PO narcotics. He is unable to tolerate the pain any longer and is unable to tolerate [place] bandage. 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 No chest pain, no SOB, no abdominal pain, no N/V/D. PFSH All Active Problems (Updated 08/05/25 @ 20:42 by Darell Nielsen MD) Opioid use disorder, severe, on maintenance therapy, dependence (Acute) Septic olecranon bursitis of right elbow (Acute) Olecranon bursitis, right elbow (Acute) Olecranon bursitis, right elbow (Acute) Mechanical loosening of internal right knee prosthetic joint (Acute) Solitary bone cyst, right tibia and fibula (Acute) History of revision of total replacement of right knee joint (Acute 10/29/21) Intraosseous ganglion (Acute) 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 beneath tibial component of TKA Noted on x-ray and MRI S/P ganglion cyst excision DOS: 07/02/19 Aspiration of recurrence on anterolateral proximal tibia: 11/01/2018; 02/08/2019 Anxiety (Chronic) Posterior tibial artery injury (Acute 01/22/20) Laceration of ankle, left, complicated (Acute 01/22/20) 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 (Acute 01/22/20) No-show for appointment (Acute) Painful orthopaedic hardware (Acute) Painful total knee replacement, right (Acute) REVISION Medical History Situational depression Low back pain History of tobacco use Diverticulosis of colon Hyperlipidemia Cervical spinal stenosis Chronic pain of right knee Bilateral elbow joint pain Anxiety disorder Contusion of lung, unilateral, sequela Skin lesion Pain of right sacroiliac joint Insomnia disorder related to known organic factor Encounter for smoking cessation counseling Cervicalgia Paresthesias Arthralgia Urinary frequency Medication management Lesion of left tibial nerve Bright red blood per rectum Stye Traumatic rupture of symphysis pubis Bone lesion Pelvic pain Hypertension Lumbar radiculopathy Erectile dysfunction Surgical History Hx of colonoscopy History of knee replacement procedure of right knee x2 H/O arthroscopy of right knee right knee w/ partial meniscectomy in 2007 by CDDx2. Other arthroscopies right knee since 2007 x 2 Family History Mother No problems noted. Father Tremor Anxiety Paternal Aunt Lung cancer Social History Smoking/Tobacco Use Status: Current every day Tobacco Type: cigarettes Years smoked: 30 Tobacco: How many years used: 20 Smoking risk assessment performed?: Yes Alcohol Intake: never Drug use: Never Substance use type: does not use Housing: apartment Current gender identity: male Do you feel safe at home: Yes Do you feel safe in your relationship?: Yes Meds Allergies and Home Medications Allergies Allergy/AdvReac Type Severity Reaction Status Date / Time pregabalin (From Lyrica) Allergy Intermediate Other (See Verified 08/05/25 10:07 Comment) simvastatin Allergy Intermediate Unknown Verified 08/05/25 10:07 gabapentin AdvReac Intermediate Psychosis Verified 08/05/25 10:07 lisinopril AdvReac Mild Cough Verified 08/05/25 10:07 Home Medications ?Medication ?Instructions ?Recorded ?Confirmed ?Type buprenorphine 2 mg-naloxone 0.5 mg 1 film buccal DAILY 04/05/23 08/05/25 History sublingual film (Suboxone) clonidine HCl 0.1 mg tablet 0.1 mg PO QHS 04/05/23 08/05/25 History ibuprofen 800 mg tablet 800 mg PO TID 04/05/23 08/05/25 History losartan 100 mg tablet 100 mg PO DAILY 04/05/23 08/05/25 History pantoprazole 40 mg tablet,delayed 40 mg PO DAILY 04/05/23 08/05/25 History release duloxetine 30 mg capsule,delayed 30 mg PO BID 06/24/25 08/05/25 History release acetaminophen 650 mg 650 mg PO Q8H 07/03/25 08/05/25 History tablet,extended release buspirone 7.5 mg tablet 7.5 mg PO QID 07/03/25 08/05/25 History clindamycin HCl 150 mg capsule 450 mg (3 x 150 mg) PO TID 7 days 08/01/25 08/05/25 Rx #63 caps prednisone 20 mg tablet 60 mg (3 x 20 mg) PO DAILY 5 days 08/01/25 08/05/25 Rx #15 tabs Exam Narrative Exam Narrative: General: This is a pleasant man in distress due to elbow pain HEENT: Normocephalic, atraumatic CV: RRR Resp: CTAB Abd: soft, NTND MSK: voluntary motion x4. Right posterior elbow markedly edematous and erythematous, protruding several cm beyond normal, exquisitely painful to any touch Neuro: awake, alert, no focal deficits Results Labs 08/05/25 11:50 08/05/25 11:58 Labs: Laboratory Results - last 24 hr 08/05/25 08/05/25 08/05/25 11:50 11:58 14:10 WBC 16.84 H RBC 4.85 Hgb 13.6 Hct 41.1 MCV 85 MCH 28.0 MCHC 33.1 RDW 13.0 Plt Count 401 H MPV 10.4 Immature Gran % 1.2 Neutrophils % 70.6 Lymphocytes % 18.4 Monocytes % 6.0 Eosinophils % 3.3 Basophils % 0.5 Nucleated RBC % 0.0 Absolute Neutrophils 11.89 H Absolute Lymphocytes 3.10 Absolute Monocytes 1.01 H Absolute Eosinophils 0.56 Absolute Basophils 0.08 ESR 22 H VBG Lactate 1.0 Sodium 139 Potassium 4.2 Chloride 105 Carbon Dioxide 27.4 Anion Gap 6.6 BUN 14 Creatinine 0.73 Est GFR (CKD-EPI 2020) 114.86 Glucose 91 Uric Acid 5.0 Calcium 9.1 Total Bilirubin 0.2 AST 29 ALT 44 Alkaline Phosphatase 132 H C-Reactive Protein 1.35 H Total Protein 7.6 Albumin 4.6 Last Vital Signs Temp 36.5 C 08/05/25 10:08 Pulse 95 H 08/05/25 10:08 Resp 18 08/05/25 10:08 BP 160/77 H 08/05/25 10:08 Pulse Ox 98 08/05/25 10:08 VTE Prohylaxis Risk Level: Low Risk Contraindications: None Prophylaxis: Patient ambulatory Time Spent Time spent with Patient: 40-54 minutes Time was spent: preparing to see the patient(eg.review tests), obtaining and/or reviewing separately otained hiistory, ordering medications,tests, procedures, referring, communicating with other health manager care management, indepentently interpreting results, counseling the patient and care coordination
[2025-08-05 15:02] VITALS: BP 177/94; PULSE 74; RESP 16; O2SAT 99
--- NOTE | 2025-08-05 15:03 | W.PC.ACHO ---
Registration Status: REG ER Primary Language: Preferred Language: Kiswahili ED Information & Data Chief Complaint Cellulitis 08/05/25 10:19 Triage Note Patient has swelling and 08/05/25 10:01 redness to the right elbow. Patient reported that he had MRI done on [facility] but the swelling is getting worst and increased pain. Currently on steroids and antibiotics. Medical / Surgical History (Updated 08/05/25 @ 14:47 by SABI Hernandez) Situational depression Low back pain History of tobacco use Diverticulosis of colon Hyperlipidemia Cervical spinal stenosis Chronic pain of right knee Bilateral elbow joint pain Anxiety disorder Contusion of lung, unilateral, sequela Skin lesion Pain of right sacroiliac joint Insomnia disorder related to known organic factor Encounter for smoking cessation counseling Cervicalgia Paresthesias Arthralgia Urinary frequency Medication management Lesion of left tibial nerve Bright red blood per rectum Stye Traumatic rupture of symphysis pubis Bone lesion Pelvic pain Hypertension Lumbar radiculopathy Erectile dysfunction (Updated 09/15/22 @ 09:40 by Rosi Cintron RN) Hx of colonoscopy History of knee replacement procedure of right knee H/O arthroscopy of right knee Most Recent Vital Signs Temperature 36.5 C 08/05/25 10:08 Temperature Source Oral 08/05/25 10:08 Pulse 95 H 08/05/25 10:08 Respiratory Rate 18 08/05/25 10:08 Blood Pressure 160/77 H 08/05/25 10:08 Blood Pressure Position Sitting 08/05/25 10:08 Pulse Oximetry 98 08/05/25 10:08 Oxygen Delivery Method Room Air 08/05/25 10:08 Oxygen Flow Rate 0 08/05/25 10:01 Pain Level 10 08/05/25 10:01 Allergies pregabalin (From Lyrica) Allergy (Intermediate, Verified 08/05/25 10:07) Other (See Comment) [place] and shake, with chills simvastatin Allergy (Intermediate, Verified 08/05/25 10:07) Unknown Upset stomach gabapentin Adverse Reaction (Intermediate, Verified 08/05/25 10:07) Psychosis lisinopril Adverse Reaction (Mild, Verified 08/05/25 10:07) Cough Diet Orders Category Date Time Status Diabetes Consistent CHO/Low Na [DIET] Nutrition 08/05/25 Dinner Active Nothing Per Oral [DIET] Nutrition 08/06/25 00:01 Ordered Diagnostics 08/05/25 08/05/25 08/05/25 Range/Units 14:10 11:58 11:50 WBC 16.84 H (4.4-10.8) 10^3/uL RBC 4.85 (4.36-5.78) 10^6/uL Hgb 13.6 (13.5-17.5) g/dL Hct 41.1 (40.0-50.0) % MCV 85 (80-95) fL MCH 28.0 (27.0-33.0) pg MCHC 33.1 (32.0-36.0) % RDW 13.0 (11.8-14.1) % Plt Count 401 H (130-400) 10^3/uL MPV 10.4 (8.0-11.0) fL Immature Gran % 1.2 % Neutrophils % 70.6 % Lymphocytes % 18.4 % Monocytes % 6.0 % Eosinophils % 3.3 % Basophils % 0.5 % Nucleated RBC % 0.0 (0.0-0.3) % Absolute Neutrophils 11.89 H (1.2-6.7) 10^3/uL Absolute Lymphocytes 3.10 (1.2-3.4) 10^3/uL Absolute Monocytes 1.01 H (0.1-0.8) 10^3/uL Absolute Eosinophils 0.56 (0.0-0.7) 10^3/uL Absolute Basophils 0.08 (0.0-0.2) 10^3/uL ESR 22 H (0-15) mm/hr VBG Lactate 1.0 (<or=2.0) mmol/L Sodium 139 (136-145) mmol/L Potassium 4.2 (3.5-5.1) mmol/L Chloride 105 (98-107) mmol/L Carbon Dioxide 27.4 (20.0-31.0) mmol/L Anion Gap 6.6 (3-11) mmol/L BUN 14 (9-23) mg/dL Creatinine 0.73 (0.73-1.18) mg/dL Est GFR (CKD-EPI 2020) 114.86 (mL/min/1.73m2) Glucose 91 (74-106) mg/dL Uric Acid 5.0 (3.7-9.2) mg/dL Calcium 9.1 (8.3-10.6) mg/dL Total Bilirubin 0.2 (0.2-1.2) mg/dL AST 29 (<34) U/L ALT 44 (10-49) U/L Alkaline Phosphatase 132 H (46-116) U/L C-Reactive Protein 1.35 H (<=0.50) mg/dL Total Protein 7.6 (5.7-8.2) g/dL Albumin 4.6 (3.2-5.0) g/dL B. divergens/MO-1 PCR Pending Babesia duncani (PCR) Pending Babesia microti DNA PCR Pending Lyme Disease Antibody Pending E.chaffeensis DNA (PCR) Pending E.ewingii/canis DNA PCR Pending E.muris eauclairensis (PCR) Pending A. phagocytophilum (PCR) Pending Blood B. miyamotoi (PCR) Pending 08/05/25 14:17 Blood Culture - Pending Blood 08/05/25 14:17 Blood Culture - Pending Blood Intake and Output - 24 Hour Total 08/05/25 09:56 thru 08/05/25 10:01 Weight 99.79 kg Falls Risk Assessment History of Falls No History 08/05/25 10:14 Contributing Factors No Factors 08/05/25 10:14 Ambulatory Aids Independent 08/05/25 10:14 Tubes/Lines None 08/05/25 10:14 Gait Evaluation No gait disturbance 08/05/25 10:14 Cognition No cognitive impairment 08/05/25 10:14 Fall Total Score 0 08/05/25 10:14 Level of Risk Standard/Low Risk 08/05/25 10:14 Attestation Statement: By documenting the first initial, last name, and credentials of the reporting nurse below, both parties acknowledge that all relevant information regarding the patient handoff has been communicated, and that all questions have been addressed to ensure continuity and safety of care. Additional Patient Information/Comments: Lump on R elbow for a month, bothersome on [place], got x-ray and scans, was referred to ortho but appt isn't till 2/6 discomfort increased and pt presented to ED. needs IV. A&O x's 4, independent at baseline. Will go into 216. Report Received From: juan Castro
[2025-08-05 15:13] VITALS: BP 159/99; PULSE 66; RESP 18; TEMP 36.4; O2SAT 99
[2025-08-05 15:33] VITALS: BP 159/99; PULSE 66; RESP 18; TEMP 36.4; O2SAT 99
[2025-08-05] MEDS: HYDROmorphone 2 MG/ML SYR 1 MG IVP (16:08)
[2025-08-05] MEDS: oxyCODONE 15 MG TAB PO (18:28)
[2025-08-05 19:49] VITALS: BP 127/80; PULSE 78; RESP 14; TEMP 36.3; O2SAT 94
[2025-08-05] MEDS: cloNIDine 0.1 MG TAB PO (20:02)
[2025-08-05] MEDS: busPIRone 5 MG TAB 7.5 MG PO (20:03)
[2025-08-05] MEDS: DULoxetine 30 MG CAP PO (20:03)
[2025-08-05] MEDS: Acetaminophen 500 MG TAB 1000 MG PO (20:03)
[2025-08-05] MEDS: PIPERACILLIN/TAZO 4.5 GM in Normal Saline 100 ML IVPB (20:04)
[2025-08-05] MEDS: diazePAM 5 MG TAB PO (20:10)
[2025-08-05] MEDS: VANCOMYCIN 1,500 MG in Normal Saline 250 ML 166.667 MG IVPB (21:15)
[2025-08-05] MEDS: Normal Saline Flush 10 ML SYR (21:20)
[2025-08-05] MEDS: Water,Injection,Sterile 10 ML VIAL (21:20)
[2025-08-06] VITALS (25 sets, daily range): BP systolic 86–126; BP diastolic 52–89; PULSE 74–91; RESP 12–21; TEMP 36.2–37; O2SAT 93–99; BMI 33.6
[2025-08-06] MEDS: oxyCODONE 15 MG TAB PO ×4 (01:38→20:31)
[2025-08-06] MEDS: PIPERACILLIN/TAZO 4.5 GM in Normal Saline 100 ML IVPB ×2 (03:09→08:02)
[2025-08-06] MEDS: Acetaminophen 500 MG TAB 1000 MG PO ×3 (03:10→18:23)
[2025-08-06 07:29] LABS: Abs Immature Grans 0.18 10^3/uL (0.0-0.06); HCT 38.2 % (40.0-50.0); HGB 12.7 g/dL (13.5-17.5); Immature Grans % 1.1 %; MCH 28.0 pg (27.0-33.0); MCHC 33.2 % (32.0-36.0); MCV 84 fL (80-95); MPV 9.9 fL (8.0-11.0); Platelet Count 378 10^3/uL (130-400); RBC 4.53 10^6/uL (4.36-5.78); RDW 13.2 % (11.8-14.1); RDW-SD 40.8 fL; WBC 16.09 10^3/uL (4.4-10.8)
[2025-08-06 07:50] LABS: Vancomycin, Random 9.2 ug/mL
[2025-08-06 07:56] LABS: ALT 36 U/L (10-49); AST 22 U/L (<34); Albumin 4.0 g/dL (3.2-5.0); Alkaline Phosphatase 121 U/L (46-116); Anion Gap 4.8 mmol/L (3-11); BUN 14 mg/dL (9-23); Bilirubin, Total 0.5 mg/dL (0.2-1.2); CO2 28.2 mmol/L (20.0-31.0); Calcium 8.8 mg/dL (8.3-10.6); Chloride 107 mmol/L (98-107); Glucose 108 mg/dL (74-106); Potassium 4.0 mmol/L (3.5-5.1); Sodium 140 mmol/L (136-145); Total Protein 6.7 g/dL (5.7-8.2)
[2025-08-06 07:59] LABS: Magnesium 2.2 mg/dL (1.6-2.6)
[2025-08-06] MEDS: Buprenorphine/Naloxone 2 mg/0.5 mg FILM 1 EACH SL (08:03)
[2025-08-06] MEDS: Pantoprazole 40 MG TABCR PO (08:03)
[2025-08-06] MEDS: Losartan 50 MG TAB 100 MG PO (08:03)
[2025-08-06] MEDS: DULoxetine 30 MG CAP PO ×2 (08:03→20:26)
[2025-08-06] MEDS: busPIRone 5 MG TAB 7.5 MG PO ×3 (08:03→20:27)
[2025-08-06] MEDS: Normal Saline Flush 10 ML SYR IVP ×2 (08:04→20:37)
[2025-08-06] MEDS: VANCOMYCIN/WATER (PEG) 1.25 GM/250 ML BAG IVPB ×2 (08:54→20:26)
--- NOTE | 2025-08-06 09:14 | W.ORTHOCONSU ---
Date of service: 08/06/25 Time of Service: 08:50 History of Present Illness History of Present Illness Chief Complaint: Right Septic Olecranon Bursitis Narrative: Satish is a 49-year-old male who I know previously from revision right knee arthroplasty. He reports over the past 3 months he has had an issue with swelling over the dorsal aspect of the right elbow. This started sometime in April without any particular trauma. He had done some compression. Eventually he was seen in express care and beginning in June and was prescribed a course antibiotics which did not help. He does find that he leans on his elbow. 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 Interestingly, he does have a history of bursa aspiration and cubital tunnel release previously at [facility] which I do not find to recently. Eventually, he did have his PCP drain this, prior to the express care visit, which helped for a short amount of time. He was then seen by Dr. Park at the end of June for a firm mass consistent with olecranon bursitis about the right elbow. At that time did not seem to be actively infected. However, it since started getting worse and he has now been on additional rounds of antibiotics with little improvement. He presented to emergency department once again on the , yesterday, with increasing pain, fever, malaise. There is notable erythema seen about the right elbow and he was thus admitted for IV and biotics and I was consulted for evaluation. Since he started the IV antibiotics he feels that the level discomfort has decreased although he is requiring a significant amount of narcotic medication for pain control here in the hospital. He does have a significant pain history and is on Suboxone at baseline. He denies numbness and tingling about the right arm. He has been able to move the right elbow and feels that that was diminishing yesterday although it is improved today. He currently denies active fever or chills. Consults Consult date: 08/05/25 Requesting physician: Darell Nielsen Consult Reason Septic olecranon bursitis?right elbow Assessment and Plan Assessment and plan (1) Septic olecranon bursitis of right elbow: Status: Acute Assessment and plan: Satish is a 49-year-old male with septic olecranon bursitis about the right side. Has had issues with this in the past. Has been ongoing for quite some time as it is a chronic bursitis. He has failed other nonoperative options including antibiotics and previous aspiration. At this point, given the appearance of the skin, and severity, and duration, I would recommend proceeding with bursectomy. The skin is quite threatened in this area and healing may be challenging. However, the best option is to remove this material and the bursal sac. I did discuss the technical details of the surgery. I did review risk to include bleeding, persistent infection, wound healing difficulties, recurrence, need for repeat procedures. I was very honest with Satish that the biggest issue in the postoperative period will be wound healing and wound dehiscence. We will keep the elbow well-padded until the wound is completely healed and we even recommend utilizing a Heelbo or other type brace to protect this area for upwards of 6 weeks. I will allow him to move the elbow as tolerated assuming that we have healthy skin to reapproximate. I also will biased the incision away from the area of necrosis. All of his questions were answered. We will move forward with surgery today. He is currently NPO. Review of Systems All systems reviewed & are unremarkable except as noted in HPI and below PFSH All Active Problems Opioid use disorder, severe, on maintenance therapy, dependence (Acute) Septic olecranon bursitis of right elbow (Acute) Olecranon bursitis, right elbow (Acute) Olecranon bursitis, right elbow (Acute) Mechanical loosening of internal right knee prosthetic joint (Acute) Solitary bone cyst, right tibia and fibula (Acute) History of revision of total replacement of right knee joint (Acute 10/29/21) Intraosseous ganglion (Acute) 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 beneath tibial component of TKA Noted on x-ray and MRI S/P ganglion cyst excision DOS: 07/02/19 Aspiration of recurrence on anterolateral proximal tibia: 11/01/2018; 02/08/2019 Anxiety (Chronic) Posterior tibial artery injury (Acute 01/22/20) Laceration of ankle, left, complicated (Acute 01/22/20) 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 (Acute 01/22/20) No-show for appointment (Acute) Painful orthopaedic hardware (Acute) Painful total knee replacement, right (Acute) REVISION Medical History Situational depression Low back pain History of tobacco use Diverticulosis of colon Hyperlipidemia Cervical spinal stenosis Chronic pain of right knee Bilateral elbow joint pain Anxiety disorder Contusion of lung, unilateral, sequela Skin lesion Pain of right sacroiliac joint Insomnia disorder related to known organic factor Encounter for smoking cessation counseling Cervicalgia Paresthesias Arthralgia Urinary frequency Medication management Lesion of left tibial nerve Bright red blood per rectum Stye Traumatic rupture of symphysis pubis Bone lesion Pelvic pain Hypertension Lumbar radiculopathy Erectile dysfunction Surgical History Hx of colonoscopy History of knee replacement procedure of right knee x2 H/O arthroscopy of right knee right knee w/ partial meniscectomy in 2007 by CDDx2. Other arthroscopies right knee since 2007 x 2 Family History Mother No problems noted. Father Tremor Anxiety Paternal Aunt Lung cancer Social History Smoking/Tobacco Use Status: Current every day Tobacco Type: cigarettes Years smoked: 30 Tobacco: How many years used: 20 Smoking risk assessment performed?: Yes Alcohol Intake: never Drug use: Never Substance use type: does not use Housing: apartment Current gender identity: male Do you feel safe at home: Yes Do you feel safe in your relationship?: Yes Exam Narrative Exam Narrative: Sitting up in the bed. No acute distress. Alert and orient x 3. Evaluation of the right arm shows focal swelling over the olecranon about the right elbow. This is quite prominent protruding out at least 4 cm from the surrounding tissues. It is approximately 7 to 8 cm in diameter with thinning of the dorsal skin and the appearance of some underlying necrosis or purulence. There is no active drainage. There is no expressible fluid. There is exquisite tenderness to palpation. There is surrounding erythema but there is no streaking. There is no erythema extending up the arm. There are some mild tenderness around the posterior lateral posterior medial aspect the elbow. No pain over the radiocapitellar joint. Minimal pain with passive range of motion between 30 and 90 degrees. No significant pain with supination and pronation of the elbow. No pain anteriorly about the elbow. Sensation intact light touch in the median, radial, ulnar nerve. Results Last Vital Signs Temp 37.0 C 08/06/25 07:35 Pulse 77 08/06/25 07:35 Resp 16 08/06/25 07:35 BP 114/76 08/06/25 07:35 Pulse Ox 96 08/06/25 07:35 Labs 08/06/25 07:15 08/06/25 07:15 Labs: Laboratory Results - last 24 hr 08/05/25 08/05/25 08/05/25 11:50 11:58 14:10 WBC 16.84 H RBC 4.85 Hgb 13.6 Hct 41.1 MCV 85 MCH 28.0 MCHC 33.1 RDW 13.0 Plt Count 401 H MPV 10.4 Immature Gran % 1.2 Neutrophils % 70.6 Lymphocytes % 18.4 Monocytes % 6.0 Eosinophils % 3.3 Basophils % 0.5 Nucleated RBC % 0.0 Absolute Neutrophils 11.89 H Absolute Lymphocytes 3.10 Absolute Monocytes 1.01 H Absolute Eosinophils 0.56 Absolute Basophils 0.08 ESR 22 H VBG Lactate 1.0 Sodium 139 Potassium 4.2 Chloride 105 Carbon Dioxide 27.4 Anion Gap 6.6 BUN 14 Creatinine 0.73 Est GFR (CKD-EPI 2020) 114.86 Glucose 91 Uric Acid 5.0 Calcium 9.1 Magnesium Total Bilirubin 0.2 AST 29 ALT 44 Alkaline Phosphatase 132 H C-Reactive Protein 1.35 H Total Protein 7.6 Albumin 4.6 Random Vancomycin 08/06/25 07:15 WBC 16.09 H RBC 4.53 Hgb 12.7 L Hct 38.2 L MCV 84 MCH 28.0 MCHC 33.2 RDW 13.2 Plt Count 378 MPV 9.9 Immature Gran % 1.1 Neutrophils % 70.5 Lymphocytes % 17.5 Monocytes % 7.0 Eosinophils % 3.4 Basophils % 0.5 Nucleated RBC % 0.0 Absolute Neutrophils 11.34 H Absolute Lymphocytes 2.82 Absolute Monocytes 1.13 H Absolute Eosinophils 0.55 Absolute Basophils 0.08 ESR VBG Lactate Sodium 140 Potassium 4.0 Chloride 107 Carbon Dioxide 28.2 Anion Gap 4.8 BUN 14 Creatinine 0.91 Est GFR (CKD-EPI 2020) 89.07 Glucose 108 H Uric Acid Calcium 8.8 Magnesium 2.2 Total Bilirubin 0.5 AST 22 ALT 36 Alkaline Phosphatase 121 H C-Reactive Protein Total Protein 6.7 Albumin 4.0 Random Vancomycin 9.2 Imaging Imaging Studies: MRI of the elbow from 1224 was reviewed. This shows a large collection that is largely homogeneous consistent with an olecranon bursitis. There is some debris seen within this area consistent with a septic picture. There is no joint effusion. There is no bone reactivity. There is no sign of tenosynovitis. X-ray of the right elbow shows an obvious prominence over the olecranon consistent with olecranon bursitis. There are some arthritic changes seen to the elbow more evident about the radiocapitellar joint with mild subchondral cyst present in the capitellum and small osteophyte about the radial head. Joint spaces are otherwise preserved.
--- NOTE | 2025-08-06 10:04 | PDOC.CMIN ---
Date of service: 08/06/25 Time of Service: 16:10 Care Management Initial Assmt Initial Assessment Reason for Hospitalization: Septic Bursitis Functional Status/Living Situation Patient Presentation: Satish had been taken down to the OR when CM attempted to meet with him. Later in the day, he was sitting up in bed and awake. He presented to the ED with a chief complaint of R elbow swelling, redness, warmth in the setting of known olecranon bursitis- planned for bursectomy on Aug [address] Saldivar, recently seen in ED for outpatient worsening and started on clindamycin and prednisone on 08/01 with significant worsening since then (see ED documentation). Orthopedic consultation completed today. Per report, he will undergo surgical intervention today around and his pain is being controlled with narcotics. Per RN, Satish is living in [place] with his partner. Satish is independent at baseline. He is employed and does not require a work note or a last dose note. At discharge, his girlfriend will bring him home. Satish reports he has an appointment 08/08 at [facility] in [place]. CM will follow. Town of Residence: [place] Resides with: Spouse (Lola) Significant Other/Family: Local Natural Supports: female partner Employment Status: Employed ([employer] work) Instrumental Activities of Daily Living (ADLs): Independent Medications Medication Management: No Issues/Barriers identified Advance Directives Advance Directives: Do you have an Advance Directive: N 10/14/12, 09:08 AD On File at [facility]: N 10/04/12, 17:11 Date Asked 08/05/25 08/05/25, 10:39 AD Date Reviewed COLST On File at [facility] COLST Date Scanned Code Status Resuscitation Status Full Code Portal Pt does not currently have a portal and education provided: Yes Insurance Coverage/Financial Issues Insurance: Medicaid [facility] - [id number] Care Team Visit Care Team Role Provider Type Rachel Montenegro MD Primary Care Provider [facility] STAFF PHYSICIAN Rasheed Sinha MD Other Providers [facility] STAFF PHYSICIAN SABI Hernandez Emergency Provider PHYSICIANS ASSISTANT Darell Nielsen MD Admit Provider [facility] STAFF PHYSICIAN Attending Provider Discharge Potential Discharge Needs: PCP F/U Appt and Surgical F/U Appt Anticipated Barriers to Discharge: Medical Status Patient/Family Education Needs: Review discharge instructions, discuss Ask Me Three Transportation: Private vehicle Plan: Anticipate Satish will be discharge home once medically ready. It is recommended she follow up with community providers, surgical team, and plan of care. He may require a work note and a last dose note. He will transport home via private vehicle. CM will follow. Social Determinants of Health Screening Social Determinants of health last assessed in clinic: 08/06/25 Will the Patient Participate in the Screening?: Declined to provide Do you worry about having a steady place to live?: no Problems where you live: no known problems In the past 12 months, have you had to go without electric, gas, oil or water in your home?: no 1. Within the past 12 months, we worried whether our food would run out before we got money to buy more.: Never true 2. Within the past 12 months, the food we bought just didn't last and we didn't have money to get more.: Never true Has lack of transportation kept you from medical appointments or from doing things needed for daily living?: no Has anyone in your life made you feel unsafe or unsupported?: no How hard is it for you to pay for the very basics like food, housing, medical care, and heating? Would you say it is:: Not hard at all Do you want help finding or keeping work or a job?: I do not need or want help If for any reason you need help with day-to-day activities such as bathing, preparing meals, shopping, managing finances, etc., do you get the help you need?: I don?t need any help How often do you feel lonely or isolated from those around you?: Never Do you speak a language other than [place] at home?: No Does the patient want assistance with any of the above?: No PFSH All Active Problems Opioid use disorder, severe, on maintenance therapy, dependence (Acute) Septic olecranon bursitis of right elbow (Acute) Olecranon bursitis, right elbow (Acute) Olecranon bursitis, right elbow (Acute) Mechanical loosening of internal right knee prosthetic joint (Acute) Solitary bone cyst, right tibia and fibula (Acute) History of revision of total replacement of right knee joint (Acute 10/29/21) Intraosseous ganglion (Acute) 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 beneath tibial component of TKA Noted on x-ray and MRI S/P ganglion cyst excision DOS: 07/02/19 Aspiration of recurrence on anterolateral proximal tibia: 11/01/2018; 02/08/2019 Anxiety (Chronic) Posterior tibial artery injury (Acute 01/22/20) Laceration of ankle, left, complicated (Acute 01/22/20) 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 (Acute 01/22/20) No-show for appointment (Acute) Painful orthopaedic hardware (Acute) Painful total knee replacement, right (Acute) REVISION Medical History Situational depression Low back pain History of tobacco use Diverticulosis of colon Hyperlipidemia Cervical spinal stenosis Chronic pain of right knee Bilateral elbow joint pain Anxiety disorder Contusion of lung, unilateral, sequela Skin lesion Pain of right sacroiliac joint Insomnia disorder related to known organic factor Encounter for smoking cessation counseling Cervicalgia Paresthesias Arthralgia Urinary frequency Medication management Lesion of left tibial nerve Bright red blood per rectum Stye Traumatic rupture of symphysis pubis Bone lesion Pelvic pain Hypertension Lumbar radiculopathy Erectile dysfunction Surgical History Hx of colonoscopy History of knee replacement procedure of right knee x2 H/O arthroscopy of right knee right knee w/ partial meniscectomy in 2007 by CDDx2. Other arthroscopies right knee since 2007 x 2 Family History Mother No problems noted. Father Tremor Anxiety Paternal Aunt Lung cancer Social History Smoking/Tobacco Use Status: Current every day Tobacco Type: cigarettes Years smoked: 30 Tobacco: How many years used: 20 Smoking risk assessment performed?: Yes Alcohol Intake: never Drug use: Never Substance use type: does not use Housing: apartment Current gender identity: male Do you feel safe at home: Yes Do you feel safe in your relationship?: Yes Readmission Within the Past 30 Days Yes or No: No
--- NOTE | 2025-08-06 11:12 | ANES.PREOP_ITS ---
General Info Date of Service Date Performed: 08/06/25 Height: 5 ft 9 in Weight: 103.4 kg Body Mass Index (BMI): 33.6 Surgical Procedure: Operation Date: 08/06/25 12:10 Proposed Procedure Side Surgeon p washout of Ángela Sinha MD Meds Allergies and Home Medications Allergies Allergy/AdvReac Type Severity Reaction Status Date / Time pregabalin (From Lyrica) Allergy Intermediate Other (See Verified 08/05/25 10:07 Comment) simvastatin Allergy Intermediate Unknown Verified 08/05/25 10:07 gabapentin AdvReac Intermediate Psychosis Verified 08/05/25 10:07 lisinopril AdvReac Mild Cough Verified 08/05/25 10:07 Home Medication ?Medication ?Instructions ?Recorded buprenorphine 2 mg-naloxone 0.5 mg 1 film buccal DAILY 04/05/23 sublingual film (Suboxone) clonidine HCl 0.1 mg tablet 0.1 mg PO QHS 04/05/23 ibuprofen 800 mg tablet 800 mg PO TID 04/05/23 losartan 100 mg tablet 100 mg PO DAILY 04/05/23 pantoprazole 40 mg tablet,delayed 40 mg PO DAILY 04/05 release duloxetine 30 mg capsule,delayed 30 mg PO BID 06/24/25 release acetaminophen 650 mg 650 mg PO Q8H 07/03/25 tablet,extended release buspirone 7.5 mg tablet 7.5 mg PO QID 07/03/25 clindamycin HCl 150 mg capsule 450 mg (3 x 150 mg) PO TID 7 days 08/01/25 #63 caps prednisone 20 mg tablet 60 mg (3 x 20 mg) PO DAILY 5 days 08/01/25 #15 tabs Current Visit Medications: Current Medications Generic Name Dose Route Start Last Admin Trade Name Freq PRN Reason Stop Dose Admin Acetaminophen 1,000 mg 08/06/25 10:00 08/06/25 10:30 Acetaminophen 500 Mg Tab PO 1,000 mg Q8H RICO Administration Buprenorphine/Naloxone 1 each 08/06/25 08:30 08/06/25 08:03 Buprenorphine/Naloxone 2 Mg/0.5 Mg Film SL 1 each DAILY RICO Administration Buspirone HCl 7.5 mg 08/05/25 20:00 08/06/25 08:03 Buspirone 5 Mg Tab PO 7.5 mg QID RICO Administration Clonidine 0.1 mg 12/28/25 20:00 08/05/25 20:02 Clonidine 0.1 Mg Tab PO 0.1 mg HS RICO Administration Duloxetine HCl 30 mg 08/05/25 20:00 08/06/25 08:03 Duloxetine 30 Mg Cap PO 30 mg BID RICO Administration Piperacillin Sod/Tazobactam 100 mls @ 200 mls/hr 08/05/25 20:00 08/06/25 08:35 Sod 4.5 gm/ Sodium Chloride IVPB Infused Q6H RICO Infusion Vancomycin/PEG/NADA/Lysine/Water 1.25 gm in 250 mls @ 166.667 mls/hr 08/06/25 08:00 08/06/25 08:54 Vancocin Injection IVPB 166.667 mls/hr Q12H RICO Administration Losartan Potassium 100 mg 08/06/25 08:30 08/06/25 08:03 Losartan 50 Mg Tab PO 100 mg DAILY RICO Administration Oxycodone HCl 15 mg 08/05/25 18:02 08/06/25 08:08 Oxycodone 15 Mg Tab PO 15 mg Q4H PRN PRN Administration Pantoprazole Sodium 40 mg 08/06/25 07:30 08/06/25 08:03 Pantoprazole 40 Mg Tabcr PO 40 mg DAILY@0730 RICO Administration Sodium Chloride 0 ml 08/06/25 08:30 08/06/25 08:04 Normal Saline Flush 10 Ml Syr IVP 20 ml BID RICO Administration Sodium Chloride 0 ml 08/05/25 20:12 Normal Saline Flush 10 Ml Syr IVP PRN PRN PFSH Active Problems Active Problems: Problem Status Onset Code Opioid use disorder, severe, on maintenance therapy, dependence Acute F11.20 Septic olecranon bursitis of right elbow Acute M71.121 Olecranon bursitis, right elbow Acute M70.21 Olecranon bursitis, right elbow Acute M70.21 Mechanical loosening of internal right knee prosthetic joint Acute T84.032A Solitary bone cyst, right tibia and fibula Acute M85.461 History of revision of total replacement of right knee joint Acute 10/29/21 Z96.651 Intraosseous ganglion Acute M67.49 Anxiety Chronic F41.9 Posterior tibial artery injury Acute 01/22/20 S85.169A Laceration of ankle, left, complicated Acute 01/22/20 S91.012A 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 Acute 01/22/20 S84.02XA No-show for appointment Acute Z53.29 Painful orthopaedic hardware Acute T84.84XA Painful total knee replacement, right Acute T84.84XA, Z96.651 Medical History Medical History Situational depression Low back pain History of tobacco use Diverticulosis of colon Hyperlipidemia Cervical spinal stenosis Chronic pain of right knee Bilateral elbow joint pain Anxiety disorder Contusion of lung, unilateral, sequela Skin lesion Pain of right sacroiliac joint Insomnia disorder related to known organic factor Encounter for smoking cessation counseling Cervicalgia Paresthesias Arthralgia Urinary frequency Medication management Lesion of left tibial nerve Bright red blood per rectum Stye Traumatic rupture of symphysis pubis Bone lesion Pelvic pain Hypertension Lumbar radiculopathy Erectile dysfunction Medical History Comments:: metal in right knee Surgical History Surgical History Hx of colonoscopy History of knee replacement procedure of right knee x2 H/O arthroscopy of right knee right knee w/ partial meniscectomy in 2007 by CDDx2. Other arthroscopies right knee since 2007 x 2 Tobacco Smoking/Tobacco Use Status: Current every day Tobacco Type: cigarettes Smoking cigarettes per day: 30 Years smoked: 30 Alcohol Alcohol Intake: never Substance Use Substance use: Never Substance use type: does not use Vital Signs and Lab Results Vital Signs Most Recent Vital Signs in EMR: Most Recent Vital Signs Temp Pulse Resp BP Pulse Ox 37.0 C 77 16 114/76 96 08/06/25 07:35 08/06/25 07:35 08/06/25 07:35 08/06/25 07:35 08/06/25 07:35 Point of Care Results Point of Care Results: Finger Stick Blood Glucose 87 08/05/25 16:32 Lab Results 08/06/25 07:15 08/06/25 07:15 Complete Blood Count: 2 WBC, (4.4-10.8) 16.09 10^3/uL H Today, 07:15 RBC, (4.36-5.78) 4.53 10^6/uL Today, 07:15 Hgb, (13.5-17.5) 12.7 g/dL L Today, 07:15 Hct, (40.0-50.0) 38.2 % L Today, 07:15 Plt Count, (130-400) 378 10^3/uL Today, 07:15 VBG Lactate, (<or=2.0) 1.0 mmol/L 08/05/25, 14:10 Complete Metabolic Panel: 2 Sodium, (136-145) 140 mmol/L Today, 07:15 Potassium, (3.5-5.1) 4.0 mmol/L Today, 07:15 Chloride, (98-107) 107 mmol/L Today, 07:15 Carbon Dioxide, (20.0-31.0) 28.2 mmol/L Today, 07:15 BUN, (9-23) 14 mg/dL Today, 07:15 Creatinine, (0.73-1.18) 0.91 mg/dL Today, 07:15 Est GFR (CKD-EPI 2020), (mL/min/1.73m2) 89.07 Today, 07:15 Magnesium, (1.6-2.6) 2.2 mg/dL Today, 07:15 Calcium, (8.3-10.6) 8.8 mg/dL Today, 07:15 Albumin, (3.2-5.0) 4.0 g/dL Today, 07:15 Glucose, (74-106) 108 mg/dL H Today, 07:15 C-Reactive Protein, (<=0.50) 1.35 mg/dL H 08/05/25, 1 1:58 Liver Function Panel: 2 ALT, (10-49) 36 U/L Today, 07:15 AST, (<34) 22 U/L Today, 07:15 Anesthesia Assessment and Plan Anesthesia History Personal History: No History of Anesthesia Complications Family History: No Family History of Anesthesia Complications Exercise Tolerance Exercise Tolerance: Metabolic Equivalents>4 Pertinent Negatives Pertinent Negatives: No Symptoms of GERD, No Major Cardiovascular Symptoms or Complaints and No Major Pulmonary Symptoms or Complaints Cardiac & Pulmonary Exam Cardiac Exam: Normal S1/S2 Heart Sounds Pulmonary Exam: Clear Bilateral Breath Sounds Implantable Cardiac Device Does patient have a Pacemaker or an ICD?: No Airway Exam Known Difficult Airway: No Mallampati Class: 2 Mouth Opening: Normal (> 3cm) Thyromental Distance: Greater than 3 cm Neck Range of Motion: Full ROM Neck Circumference: Normal Teeth Condition: Edentulous ASA Classification ASA Score: ASA 3 Emergency Case?: No NPO Status NPO Status: NPO Clears >2 hours, Solids >8 hours Anesthesia Plan Resuscitation Status: Full Code Anesthesia Technique: General Anesthesia Airway Planned: Endotracheal Tube Monitors Used: Standard Monitors
[2025-08-06] MEDS: Lactated Ringers 1,000 ML 30 ML IV (11:37)
[2025-08-06] MEDS: Bupivacaine 0.5% Pres-Free 30 ML VIAL (13:02)
--- NOTE | 2025-08-06 13:39 | PHA.REVIEW2 ---
Pharmacy Admission Review Admission Clinical Review Admission Pharmacy Review: Opioid use disorder, severe, on maintenance therapy, dependence (Acute) Septic olecranon bursitis of right elbow (Acute) pregabalin (From Lyrica) Allergy (Intermediate, Verified 08/05/25 10:07) Other (See Comment) simvastatin Allergy (Intermediate, Verified 08/05/25 10:07) Unknown gabapentin Adverse Reaction (Intermediate, Verified 08/05/25 10:07) Psychosis lisinopril Adverse Reaction (Mild, Verified 08/05/25 10:07) Cough Resuscitation Status Full Code Height 5 ft 9 in Weight 103.4 kg Comments Comments/Follow Ups: Follow up on DVT prophylaxis and home med question Pharmacy Admission Review Renal Dosing Renal Dosing: BUN 14 mg/dL (9-23) 08/06/25 07:15 Creatinine 0.91 mg/dL (0.73-1.18) 08/06/25 07:15 Medications needing adjustments: Reviewed (CrCl 118 mL/min) List of meds needing interventions: Current medications are okay Anticoagulation Anticoagulation: Hgb 12.7 g/dL (13.5-17.5) L 08/06/25 07:15 Hct 38.2 % (40.0-50.0) L 08/06/25 07:15 Plt Count 378 10^3/uL (130-400) 08/06/25 07:15 Creatinine 0.91 mg/dL (0.73-1.18) 08/06/25 07:15 DVT Prophylaxis: Reviewed (none at this time - OR today, will reach out to provider if none added after procedure) Opiate Usage Evaluate Pain Scale/Pains Meds: Reviewed (oxycodone 15mg q4h PRN - 30mg/24hrs) Scheduled Bowel Reg ordered if on Opiates?: No Relevant Labs Relevant Labs: ESR 22 mm/hr (0-15) H 08/05/25 11:58 Sodium 140 mmol/L (136-145) 08/06/25 07:15 Potassium 4.0 mmol/L (3.5-5.1) 08/06/25 07:15 Chloride 107 mmol/L (98-107) 08/06/25 07:15 Magnesium 2.2 mg/dL (1.6-2.6) 08/06/25 07:15 C-Reactive Protein 1.35 mg/dL (<=0.50) H 08/05/25 11:58 Electrolytes, C-Reactive P, ESR: Reviewed Cardiac Review Cardiac Review: Blood Pressure 110/76 1336 Blood Pressure 91/60 1330 Blood Pressure 87/61 1325 Blood Pressure 86/55 1323 Blood Pressure 86/52 1321 Blood Pressure 114/76 0735 BP, HR, EF%: Reviewed (HR WNL, oxygen flow rate = 10) List meds needing interventions: Has order for losartan 100mg daily QTc Review QTc: Reviewed (No EKG on file) IV to PO Switch IV Medications: Reviewed (Zosyn and vancomycin) Home Meds Home Med List reviewed: Intervened Relevent Home Meds Not ordered & why?: ibuprofen (PRN) Suboxone on home med list says 1 film daily but external fill history says 1.5 films daily. Reached out to nurse to clarify with patient what dose they take at home. Waiting to hear back. Current Meds Current Medication Order Review: Intervened Comments: Retimed acetaminophen order to be on even hour per pharmacy protocol Pharmacy Antibiotic Review Relevant Labs: WBC 16.09 10^3/uL (4.4-10.8) H 08/06/25 07:15 Temperature 36.6 C Temperature 36.6 C Temperature 36.6 C Temperature 36.6 C Temperature 37.0 C Pharmacy Antibiotic Activity: C/S review and Reviewed, no change Comments: Patient is on vancomycin and Zosyn, day 1, for septic bursitis. Current vancomycin dose is 1250mg q12h with predicted AUC of 504. Level was 9.2 today at 0715. Will order another level if any significant changes in renal function or prolonged therapy required. WBC decreased form 16.84 and blood/wound cultures pending. Comments Comments/Follow Ups: Follow up on DVT prophylaxis and home med question
--- NOTE | 2025-08-06 14:41 | W.ANESPOSTOP ---
Postoperative Evaluation Date, Time and Location Date Performed: 08/06/25 Time Performed: 13:50 Patient Location: PACU Vital Signs Most Recent Imported Vital Signs: Most Recent Vital Signs Temp Pulse Resp BP Pulse Ox 36.2 C L 80 14 126/89 94 08/06/25 14:02 08/06/25 14:02 08/06/25 14:02 08/06/25 14:02 08/06/25 14:02 Pain Score Most Recent Pain Score: Most Recent Pain Score Pain Level [Right Elbow] 6 08/06/25 09:08 Pain Level 7 08/06/25 14:38 Assessment Mental Status: Arousable with meaningful communication Airway and Respiratory Function: Patent airway with normal (patient baseline) respiratory exam Cardiovascular Function: Hemodynamically Stable Hydration Status: Adequately Hydrated Nausea & Vomiting: No Nausea or Vomiting Pain: Pain is tolerable per patient Peripheral Nerve Block: Patient did not receive a nerve block
--- NOTE | 2025-08-06 15:46 | W.PM.PROGNOT ---
Date of Service Date of service: 08/06/25 Time of Service: 15:46 Assessment and Plan Assessment and plan (1) Septic olecranon bursitis of right elbow: Status: Acute Assessment and plan: Acute on chronic problem Discussed with Dr Sinha who will kindly consult OR today Stop pip ben per ortho recommendation; continue vanco Scheduled and PRN narcotics, See ortho note for further information (2) Opioid use disorder, severe, on maintenance therapy, dependence: Status: Acute Assessment and plan: Continue suboxone Will need to coordinate with MAT clinic at discharge to resume (3) Anxiety: Status: Chronic Assessment and plan: Continue home buspirone (4) Benign hypertension: Status: None Assessment and plan: Continue home losartan (5) Gastroesophageal reflux disease: Status: None Assessment and plan: Continue home PPI Discharge Planning Discharge Planning: Possibly home tomorrow - per ortho recommendations Subjective Subjective Patient reports: no new complaints, pain is less, tolerating liquids well, tolerating a regular diet, voiding w/o difficulty, bowel movement and afebrile; denies diarrhea, nausea, vomiting or shortness of breath Interval history since last seen: Awake, alert, conversant, pleasant post op. Exam Narrative Exam Narrative: GENERAL APPEARANCE: Toxic, awake and alert, atraumatic SKIN: Warm, pink, dry, intact, without rashes/lesions/ulcerations other than R elbow findings (see below). HEAD: Normocephalic, atraumatic, normal hair distribution for gender/age. EYES: Normal conjunctiva, no exudates on lids/lashes. ENT: Nares patent, no circumoral cyanosis, no facial swelling NECK: Supple, trachea midline, painless cervical ROM. LUNGS/CHEST: Non-labored respirations, normal A/P diameter, symmetrical expansion, no chest wall deformity HEART (CV/PV): Regular rate, no peripheral edema, no JVD. ABDOMEN: Soft, non-distended, no guarding. MSK: No cyanosis, spine midline without tenderness, normal curvature. R ELBOW: covered by dressing Mental Status AAOx4 - alert to person, place, time, events No facial droop, no forehead involvement. Motor: No focal weakness Sensory: sensation intact to light touch globally. Gait normal: patient ambulated without ataxia into ED room. PSYCH: euthymic, cooperative, pleasant, appropriate speech Objective Last Vital Signs Temp 36.5 C 08/06/25 15:03 Pulse 76 08/06/25 15:03 Resp 16 08/06/25 15:03 BP 101/71 08/06/25 15:03 Pulse Ox 94 08/06/25 15:03 Laboratory Results - last 24 hr 08/06/25 07:15 WBC 16.09 H RBC 4.53 Hgb 12.7 L Hct 38.2 L MCV 84 MCH 28.0 MCHC 33.2 RDW 13.2 Plt Count 378 MPV 9.9 Immature Gran % 1.1 Neutrophils % 70.5 Lymphocytes % 17.5 Monocytes % 7.0 Eosinophils % 3.4 Basophils % 0.5 Nucleated RBC % 0.0 Absolute Neutrophils 11.34 H Absolute Lymphocytes 2.82 Absolute Monocytes 1.13 H Absolute Eosinophils 0.55 Absolute Basophils 0.08 Sodium 140 Potassium 4.0 Chloride 107 Carbon Dioxide 28.2 Anion Gap 4.8 BUN 14 Creatinine 0.91 Est GFR (CKD-EPI 2020) 89.07 Glucose 108 H Calcium 8.8 Magnesium 2.2 Total Bilirubin 0.5 AST 22 ALT 36 Alkaline Phosphatase 121 H Total Protein 6.7 Albumin 4.0 Random Vancomycin 9.2 VTE Prohylaxis Risk Level: Low Risk Contraindications: None Prophylaxis: Patient ambulatory Time Spent with Patient Time Spent with Patient: 25-34 minutes Time was spent: preparing to see the patient(eg.review tests), ordering medications,tests, procedures, referring, communicating with other health client care consultant, indepentently interpreting results, counseling the patient and care coordination
--- NOTE | 2025-08-06 16:06 | ROE_ITS ---
Operative Note Operative Note PRE-OP DIAGNOSIS: Septic olecranon bursitis, right elbow POST-OP DIAGNOSIS: same PROCEDURE: Right olecranon bursectomy with irrigation and debridement SURGEON: Rasheed Sinha ANESTHESIA TYPE: General LMA/ETT Refer to Anesthesia Record ESTIMATED BLOOD LOSS: 100 PATHOLOGY: other (Fluid sample from the bursa sent for aerobic anaerobic culture, bursal tissue sample sent for culture.) COMPLICATIONS: None Patient was transported to: PACU Patient's condition: stable Indications: Satish is a 49-year-old male with septic left bursitis about the right elbow. This is try to be managed conservatively but unfortunately has failed conservative management. Therefore, I offered surgical bursectomy with debridement. I reviewed the surgery with him. I discussed the details of the surgery. I reviewed the risk to include but continued infection bleeding, pain, stiffness. Despite these risk, he elects to proceed. Findings: There was gross purulence within the olecranon bursa. An aspiration from the bursa was sent to the lab for culture as well as a portion of bursal tissue. Procedure Description: Satish was greeted in the preoperative holding area. His identity was confirmed the correct site was identified and marked. He was brought back to the operating room. A general anesthetic was administered. He was then placed into the left lateral decubitus position with the tube secured. Bony prominences well-padded. The right arm was placed onto a bone foam ramp with the left arm t hrough a cut out, resting on a armrest. No prophylactic antibiotics are necessary given the recent ministration of broad-spectrum antibiotics on the floor. A timeout was performed for safe surgery. The right arm was then prepped ChloraPrep draped in standard fashion. The grossly purulent septic bursitis was aspirated with purulence. This was sent to the lab. I then made a curvilinear incision around the tip of the olecranon. This taken at the skin sharply. The bursal sac was entered with a Metzenbaum scissor and there was gross purulence identified. This is dissected down so had full exposure of the intracondylar bursa. The central portion of the skin dorsally was quite thin but still intact and therefore the incision was biased around this area and additionally debridement was limited on this side. I used a rongeur and a knife to sharply remove bursal tissue. Bursal tissue was sent to the lab for aerobic anaerobic culture. I then used a curette to debride the inside of the bursal content. This was taken all the way to the triceps fascia and down to the forearm fascia. This was then irrigated with 3 L of normal saline. There was notable vascularity in the area but no sign of recurrent purulence. I then placed a drain to the distal aspect of the incision, laid within the bed of the bursa. The tissue was then closed with interrupted 2-0 Vicryl followed by interrupted 3-0 nylon. The wound was then dressed with Xeroform, 4 x 4's, ABD, Kerlix and Darien wrap. At the end the case all counts are correct. He was transitioned back to the supine position, extubated, and taken to the hospital stretcher without difficulty. Date of Procedure: 08/06/25
[2025-08-06] MEDS: cloNIDine 0.1 MG TAB PO (20:26)
[2025-08-07] MEDS: Acetaminophen 500 MG TAB 1000 MG PO ×2 (02:55→09:05)
[2025-08-07] MEDS: oxyCODONE 15 MG TAB PO ×3 (03:53→15:13)
--- NOTE | 2025-08-07 06:47 | NUR.NOTE ---
0400.- Found pt. has been smoking in the BR. The smoking odor was present in the BR. Pt. admitted that he had an electronic cigarette . He did not admitted that he was smoking. The vape was Removed from pt. and kept on Pt. medication box. Explained to pt. that it will be given back to him at D/C. Nursing Note:
[2025-08-07 07:28] VITALS: BP 118/78; PULSE 78; RESP 16; TEMP 36.6; O2SAT 95
[2025-08-07 07:34] LABS: Abs Immature Grans 0.11 10^3/uL (0.0-0.06); HCT 38.7 % (40.0-50.0); HGB 12.7 g/dL (13.5-17.5); Immature Grans % 0.7 %; MCH 28.2 pg (27.0-33.0); MCHC 32.8 % (32.0-36.0); MCV 86 fL (80-95); MPV 9.9 fL (8.0-11.0); Platelet Count 382 10^3/uL (130-400); RBC 4.50 10^6/uL (4.36-5.78); RDW 13.2 % (11.8-14.1); RDW-SD 41.0 fL; WBC 14.87 10^3/uL (4.4-10.8)
--- NOTE | 2025-08-07 08:00 | CMPROGNOTE_ITS ---
Date of service: 08/07/25 Time of Service: 08:00 Care Management Progress Note Progress Note Text Progress Note Text: Satish was lying in bed and awake when CM met with him. Satish is post op day #1, with drain. He reports his pain is tolerable today but he is feeling much better. Per report, it is anticipated that Satish will be discharged later today. CM will follow. Discharge Potential Discharge Needs: PCP F/U Appt and Surgical F/U Appt Anticipated Barriers to Discharge: Medical Status Patient/Family Education Needs: Review discharge instructions, discuss Ask Me Three Transportation: Private vehicle Plan: Anticipate Satish will be discharge home once medically ready. It is recommended she follow up with community providers, surgical team, and plan of care. He will transport home via private vehicle. CM will follow. Social Determinants of Health Screening Social Determinants of health last assessed in clinic: 08/07/25 Will the Patient Participate in the Screening?: Declined to provide Do you worry about having a steady place to live?: no Problems where you live: no known problems In the past 12 months, have you had to go without electric, gas, oil or water in your home?: no 1. Within the past 12 months, we worried whether our food would run out before we got money to buy more.: Never true 2. Within the past 12 months, the food we bought just didn't last and we didn't have money to get more.: Never true Has lack of transportation kept you from medical appointments or from doing things needed for daily living?: no Has anyone in your life made you feel unsafe or unsupported?: no How hard is it for you to pay for the very basics like food, housing, medical care, and heating? Would you say it is:: Not hard at all Do you want help finding or keeping work or a job?: I do not need or want help If for any reason you need help with day-to-day activities such as bathing, preparing meals, shopping, managing finances, etc., do you get the help you need?: I don?t need any help How often do you feel lonely or isolated from those around you?: Never Do you speak a language other than [place] at home?: No Does the patient want assistance with any of the above?: No
[2025-08-07 08:01] LABS: ALT 37 U/L (10-49); AST 26 U/L (<34); Albumin 4.2 g/dL (3.2-5.0); Alkaline Phosphatase 120 U/L (46-116); Anion Gap 3.8 mmol/L (3-11); BUN 13 mg/dL (9-23); Bilirubin, Total 0.4 mg/dL (0.2-1.2); C-Reactive Protein 3.60 mg/dL (<=0.50); CO2 28.2 mmol/L (20.0-31.0); Calcium 9.0 mg/dL (8.3-10.6); Chloride 107 mmol/L (98-107); Glucose 105 mg/dL (74-106); Potassium 4.4 mmol/L (3.5-5.1); Sodium 139 mmol/L (136-145); Total Protein 7.1 g/dL (5.7-8.2)
[2025-08-07] MEDS: VANCOMYCIN/WATER (PEG) 1.25 GM/250 ML BAG IVPB (09:04)
[2025-08-07] MEDS: Pantoprazole 40 MG TABCR PO (09:05)
[2025-08-07] MEDS: busPIRone 5 MG TAB 7.5 MG PO ×2 (09:05→12:26)
[2025-08-07] MEDS: Normal Saline Flush 10 ML SYR IVP (09:05)
[2025-08-07] MEDS: Losartan 50 MG TAB 100 MG PO (09:06)
[2025-08-07] MEDS: DULoxetine 30 MG CAP PO (09:06)
[2025-08-07] MEDS: Buprenorphine/Naloxone 2 mg/0.5 mg FILM 1 EACH SL (09:06)
[2025-08-07 10:20] LABS: Lyme Ab w Rflx to Lyme Confirm Negative (Negative)
--- NOTE | 2025-08-07 14:32 | PGE_ITS ---
Date of Service Date of service: 08/07/25 Time of Service: 14:32 Assessment and Plan Assessment and plan (1) Septic olecranon bursitis of right elbow: Status: Acute Assessment and plan: Satish is a 49-year-old male who is status post irrigation debridement bursectomy of the right septic olecranon bursa. He is doing well. This is likely MRSA. The surgery was the primary treatment course although I would recommend 1 to 2-week course of antibiotics to follow as the wound continues to heal. I appreciate the medicine management by the hospitalist team. Recommend Zyvox for discharge antibiotics. Follow-up in 2 weeks for wound check and suture removal. There is a central area about the olecranon where there was near complete skin necrosis although is intact and we will have to follow this to make sure this does not open up. He should keep the elbow well-padded. For 3 days he may shower, let it air dry, and then reapply padding. Subjective Subjective Interval history since last seen: Satish is status post irrigation debridement and bursectomy of his septic right olecranon bursitis. He feels we doing well. He feels his pain is manageable. He feels better than he did yesterday. No fevers no chills. Labs are stable. Minimal output from the bulb drain. Exam Narrative Exam Narrative: Sitting up in the chair. No acute distress. Alert and x 3. Dressings clean dry and intact. The drain was removed from suction and then removed from the elbow without difficulty. Objective Last Vital Signs Temp 36.6 C 08/07/25 07:28 Pulse 78 08/07/25 07:28 Resp 16 08/07/25 07:28 BP 118/78 08/07/25 07:28 Pulse Ox 95 08/07/25 07:28 Laboratory Results - last 24 hr 08/05/25 08/07/25 11:58 06:55 WBC 14.87 H RBC 4.50 Hgb 12.7 L Hct 38.7 L MCV 86 MCH 28.2 MCHC 32.8 RDW 13.2 Plt Count 382 MPV 9.9 Immature Gran % 0.7 Neutrophils % 70.8 Lymphocytes % 17.4 Monocytes % 6.8 Eosinophils % 3.8 Basophils % 0.5 Nucleated RBC % 0.0 Absolute Neutrophils 10.53 H Absolute Lymphocytes 2.59 Absolute Monocytes 1.01 H Absolute Eosinophils 0.57 Absolute Basophils 0.07 Sodium 139 Potassium 4.4 Chloride 107 Carbon Dioxide 28.2 Anion Gap 3.8 BUN 13 Creatinine 0.91 Est GFR (CKD-EPI 2020) 89.07 Glucose 105 Calcium 9.0 Total Bilirubin 0.4 AST 26 ALT 37 Alkaline Phosphatase 120 H C-Reactive Protein 3.60 H Total Protein 7.1 Albumin 4.2 Lyme Disease Antibody Negative VTE Prohylaxis Risk Level: Low Risk Contraindications: None Prophylaxis: Patient ambulatory Time Spent with Patient Time Spent with Patient: <25 minutes Time was spent: preparing to see the patient(eg.review tests), referring, communicating with other health sub acute care nurse, indepentently interpreting results and counseling the patient
--- NOTE | 2025-08-07 14:42 | CHAPLAIN ---
Satish was sitting up in bed, visiting with his girlfriend, when I stopped in. He is here for septic bursitis in his elbow. Satish was pleasant and easily engaged in a conversation. I explained my role and offered support.
--- NOTE | 2025-08-07 14:55 | DSE_ITS ---
Date of service: 08/07/25 Time of Service: 14:55 DS: Diagnosis Discharge Diagnosis (1) Septic olecranon bursitis of right elbow: Status: Acute Discharge Plan Disposition Patient Disposition: Home Anticipated Discharge Date/Time: 08/07/25 14:54 Condition: Improving Discharge Details Reason For Visit: Septic Bursitis Admit Date/Time: 08/05/25 14:40 Admit Provider: Darell Nielsen Attending Provider: Darell Nielsen Primary Care Provider: Rachel Montenegro V Hospital Course Hospital Course: This is a 49-year-old man who presented on 08/05/25 with worsening right elbow pain, redness, and swelling. He has a several-month history of recurrent olecranon bursitis, previously treated with aspiration and multiple courses of antibiotics without sustained improvement. He had been taking doxycycline and prednisone since 08/01/25 and was scheduled for elective bursectomy on 08/14/25. On presentation, he reported severe pain limiting sleep and function, with associated erythema and swelling. He denied chest pain, shortness of breath, abdominal pain, nausea, vomiting, or diarrhea. Given concern for septic bursitis and failure of outpatient management, he was admitted for IV antibiotics and orthopedic evaluation. Acute on chronic olecranon bursitis with clinical signs of infection. Orthopedics (Dr. Sinha) was consulted on admission. The patient was started on IV vancomycin and piperacillin?tazobactam. Given failure of outpatient antibiotics and worsening pain, he was taken to the operating room on 08/06/25 for operative management of septic olecranon bursitis. Post-operatively, pain improved and there were no complications. Pip ben was discontinued. Discharge Plan: * Discharge home * Linezolid x 10 days * Pain control as prescribed * Activity as tolerated; avoid pressure on elbow * Orthopedic follow-up as scheduled * Return precautions reviewed * Opioid use disorder, severe, on maintenance therapy Continued home buprenorphine-naloxone during admission. Required additional opioids for acute post-operative pain with careful monitoring. Discharge Plan: * Continue Suboxone * Coordinate with MAT clinic to resume routine outpatient management 3. Anxiety Status: Chronic * Continue home buspirone 4. Hypertension Status: Stable * Continue home losartan 5. Gastroesophageal reflux disease Status: Stable * Continue home PPI Of note: Linezolid and Serotonergic Medications: The patient is maintained on duloxetine, buspirone and buprenorphine/naloxone, both of which have serotonergic properties. Linezolid is a reversible monoamine oxidase inhibitor, and product labeling lists concomitant use with SNRIs as con traindicated due to the potential risk of serotonin syndrome. Despite this, published data suggest that the absolute risk is low, particularly in the absence of multiple high-dose serotonergic agents. Given limited effective alternative antibiotic options and the clinical indication for linezolid, the decision was made to proceed with therapy after weighing risks and benefits. At discharge, the patient was counseled on symptoms of serotonin syndrome and instructed to seek immediate medical attention for new or worsening agitation, confusion, fever, diaphoresis, tachycardia, hypertension, tremor, muscle rigidity, clonus, hyperreflexia, or diarrhea. Close outpatient monitoring was recommended, and discontinuation of serotonergic agents or linezolid should be considered promptly if concerning symptoms arise. Recommendations for Follow Up Recommended tests to be ordered by follow up provider: CBC in 1 week Home Meds and New Rx's Prescriptions: New linezolid 600 mg tablet 600 mg PO BID Qty: 20 0RF Continued losartan 100 mg tablet 100 mg PO DAILY clonidine HCl 0.1 mg tablet 0.1 mg PO QHS pantoprazole 40 mg tablet,delayed release (DR/EC) 40 mg PO DAILY buprenorphine-naloxone [Suboxone] 2-0.5 mg film 1 film buccal DAILY Rx Instructions: place 1 strip/tab under (each) side of tongue ibuprofen 800 mg tablet 800 mg PO TID acetaminophen 650 mg tablet extended release 650 mg PO Q8H buspirone 7.5 mg tablet 7.5 mg PO QID duloxetine 30 mg capsule,delayed release(DR/EC) 30 mg PO BID Patient Comments: TAKE ONE CAPSULE BY MOUTH TWICE A DAY prednisone 20 mg tablet 60 mg PO DAILY 5 Days Qty: 15 0RF clindamycin HCl 150 mg capsule 450 mg PO TID 7 Days Qty: 63 0RF Discharge Instructions Instructions: Methicillin-resistant Staphylococcus aureus (MRSA), Bursitis (DC), Linezolid Additional Instructions: Activity: Avoid any direct pressure to the elbow. You may use the arm/elbow/hand for gentle range of motion and light use but avoid repetitive physical tasks or heavy lifting/pushing/pulling. The most important is to avoid direct pressure over the point of the elbow. Dressings: Keep the initial dressing from the hospital in place for at least 72 hours. Then you may remove it. You may shower and get it wet but it should be dried before putting a new dressing on it. Except for dressing changes and hygiene it should be covered with gauze padding and an DEEPAK wrap for some compression. Medications: It is important that you complete your antibiotic as prescribed. Linezolid 600 mg twice a day. Follow-up: 2 weeks Medication Safety ? While taking linezolid with your current medications, seek immediate medical attention (go to the ER or call 911) if you develop new or worsening symptoms such as agitation, confusion, fever, heavy sweating, fast heart rate, high blood pressure, shaking or tremors, muscle stiffness, muscle twitching, exaggerated reflexes, or diarrhea. You will need close follow-up after discharge. If any of these symptoms occur, your healthcare provider may need to stop or change one or more of your medications, including linezolid. Do not stop medications on your own unless directed by a provider. Stand Alone Forms: Portal Information Referrals: Rachel Montenegro MD [Primary Care Provider, Medicine] Referral Note: 1 week post hospitalization for septic bursitis Rasheed Sinha MD [ [facility] STAFF PHYSICIAN, Orthopaedic Surgical] Referral Note: 2 weeks follow up post hospitalization for septic bursitis Activity:: Activity as Tolerated Equipment/Supplies:: No Equipment Needed Diet:: As Tolerated Discharge Orders Discharge Orders: Discharge Order (Routine); Ordered 08/07/25 Ordered By: Nichole Hardin DS: Summary Time Spent with Patient providing and/or coordinating discharge services: Greater than 30 minutes Status at Discharge Functional status at discharge: independent ambulation Overall status at discharge: patient is progressing back to baseline Mental Status: mental status grossly normal Speech and Movement: speech and movement normal Mood: congruent mood Affect: normal affect Exam Psych Mental Status: mental status grossly normal Speech and Movement: speech and movement normal Mood: congruent mood Affect: normal affect DS: Data Vitals/I&O Vitals and I&O: Vital Signs Temperature 36.6 C 08/07/25 07:28 Temperature Source Temporal Artery Scan 08/07/25 07:28 Pulse 78 08/07/25 07:28 Pulse Rhythm Regular 08/05/25 15:33 Pulse 79 08/06/25 13:46 Respiratory Rate 16 08/07/25 07:28 Respiratory Effort Normal 08/05/25 15:33 Respiratory Depth Normal 08/05/25 15:33 Respiratory Pattern Normal 08/05/25 15:33 Blood Pressure 118/78 08/07/25 07:28 Blood Pressure Mean 91 08/07/25 07:28 Blood Pressure Position Sitting 08/05/25 10:08 Pulse Oximetry 95 08/07/25 07:28 Respiratory End-tidal CO2 36 08/06/25 13:46 Oxygen Delivery Method Room Air 08/07/25 07:28 Oxygen Flow Rate 0 08/07/25 07:28 Pain Level 2 08/07/25 11:50 Comment pt back to unit from pacu 08/06/25 14:02 Intake & Output 08/06/25 08/07/25 08/07/25 23:59 11:59 23:59 Intake Total 1765.5 / 2265.5 848 / 1248 400 / 1248 Output Total 100 / 100 Balance 1665.5 / 2165.5 848 / 1248 400 / 1248 Intake: IV 1155.5 / 1625.5 500 / 500 Oral 600 / 630 340 / 740 400 / 740 Injectate 8 8 Right Mid Posterior Elbow 8 Output: Drainage 0 / 0 Right Mid Posterior Elbow 0 / 0 Estimated Blood Loss 100 / 100 Other: Urine Color Yellow Urine Appearance Clear Comment Pt up to void in BR Emesis Description None Data Completed and Pending Pending Labs at Discharge: 08/05/25 08/05/25 08/05/25 11:50 11:58 14:10 WBC 16.84 H RBC 4.85 Hgb 13.6 Hct 41.1 MCV 85 MCH 28.0 MCHC 33.1 RDW 13.0 Plt Count 401 H MPV 10.4 Immature Gran % 1.2 Neutrophils % 70.6 Lymphocytes % 18.4 Monocytes % 6.0 Eosinophils % 3.3 Basophils % 0.5 Nucleated RBC % 0.0 Absolute Neutrophils 11.89 H Absolute Lymphocytes 3.10 Absolute Monocytes 1.01 H Absolute Eosinophils 0.56 Absolute Basophils 0.08 ESR 22 H VBG Lactate 1.0 Sodium 139 Potassium 4.2 Chloride 105 Carbon Dioxide 27.4 Anion Gap 6.6 BUN 14 Creatinine 0.73 Est GFR (CKD-EPI 2020) 114.86 Glucose 91 Uric Acid 5.0 Calcium 9.1 Magnesium Total Bilirubin 0.2 AST 29 ALT 44 Alkaline Phosphatase 132 H C-Reactive Protein 1.35 H Total Protein 7.6 Albumin 4.6 Random Vancomycin B. divergens/MO-1 PCR Pending Babesia duncani (PCR) Pending Babesia microti DNA PCR Pending Lyme Disease Antibody Negative E.chaffeensis DNA (PCR) Pending E.ewingii/canis DNA PCR Pending E.muris eauclairensis (PCR) Pending A. phagocytophilum (PCR) Pending Blood B. miyamotoi (PCR) Pending 08/06/25 08/07/25 07:15 06:55 WBC 16.09 H 14.87 H RBC 4.53 4.50 Hgb 12.7 L 12.7 L Hct 38.2 L 38.7 L MCV 84 86 MCH 28.0 28.2 MCHC 33.2 32.8 RDW 13.2 13.2 Plt Count 378 382 MPV 9.9 9.9 Immature Gran % 1.1 0.7 Neutrophils % 70.5 70.8 Lymphocytes % 17.5 17.4 Monocytes % 7.0 6.8 Eosinophils % 3.4 3.8 Basophils % 0.5 0.5 Nucleated RBC % 0.0 0.0 Absolute Neutrophils 11.34 H 10.53 H Absolute Lymphocytes 2.82 2.59 Absolute Monocytes 1.13 H 1.01 H Absolute Eosinophils 0.55 0.57 Absolute Basophils 0.08 0.07 ESR VBG Lactate Sodium 140 139 Potassium 4.0 4.4 Chloride 107 107 Carbon Dioxide 28.2 28.2 Anion Gap 4.8 3.8 BUN 14 13 Creatinine 0.91 0.91 Est GFR (CKD-EPI 2020) 89.07 89.07 Glucose 108 H 105 Uric Acid Calcium 8.8 9.0 Magnesium 2.2 Total Bilirubin 0.5 0.4 AST 22 26 ALT 36 37 Alkaline Phosphatase 121 H 120 H C-Reactive Protein 3.60 H Total Protein 6.7 7.1 Albumin 4.0 4.2 Random Vancomycin 9.2 B. divergens/MO-1 PCR Babesia duncani (PCR) Babesia microti DNA PCR Lyme Disease Antibody E.chaffeensis DNA (PCR) E.ewingii/canis DNA PCR E.muris eauclairensis (PCR) A. phagocytophilum (PCR) Blood B. miyamotoi (PCR) Preliminary micro results at discharge 08/06/25 12:33 Elbow - Right Joint Surgical Culture - Preliminary Staphylococcus aureus 08/06/25 12:33 Elbow - Right Joint Body Fluid Culture - Preliminary Staphylococcus aureus 08/05/25 14:17 Blood Blood Culture - Preliminary NO GROWTH 24 HOURS 08/05/25 14:17 Blood Blood Culture - Preliminary NO GROWTH 24 HOURS 08/06/25 12:33 Elbow - Right Anaerobic Culture - Pending 08/06/25 12:33 Elbow - Right Joint Anaerobic Culture - Pending [facility] All Active Problems Opioid use disorder, severe, on maintenance therapy, dependence (Acute) Septic olecranon bursitis of right elbow (Acute) Olecranon bursitis, right elbow (Acute) Olecranon bursitis, right elbow (Acute) Mechanical loosening of internal right knee prosthetic joint (Acute) Solitary bone cyst, right tibia and fibula (Acute) History of revision of total replacement of right knee joint (Acute 10/29/21) Intraosseous ganglion (Acute) 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 beneath tibial component of TKA Noted on x-ray and MRI S/P ganglion cyst excision DOS: 07/02/19 Aspiration of recurrence on anterolateral proximal tibia: 11/01/2018; 02/08/2019 Anxiety (Chronic) Posterior tibial artery injury (Acute 01/22/20) Laceration of ankle, left, complicated (Acute 01/22/20) 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 (Acute 01/22/20) No-show for appointment (Acute) Painful orthopaedic hardware (Acute) Painful total knee replacement, right (Acute) REVISION Medical History Situational depression Low back pain History of tobacco use Diverticulosis of colon Hyperlipidemia Cervical spinal stenosis Chronic pain of right knee Bilateral elbow joint pain Anxiety disorder Contusion of lung, unilateral, sequela Skin lesion Pain of right sacroiliac joint Insomnia disorder related to known organic factor Encounter for smoking cessation counseling Cervicalgia Paresthesias Arthralgia Urinary frequency Medication management Lesion of left tibial nerve Bright red blood per rectum Stye Traumatic rupture of symphysis pubis Bone lesion Pelvic pain Hypertension Lumbar radiculopathy Erectile dysfunction Surgical History Hx of colonoscopy History of knee replacement procedure of right knee x2 H/O arthroscopy of right knee right knee w/ partial meniscectomy in 2007 by CDDx2. Other arthroscopies right knee since 2007 x 2 Family History Mother No problems noted. Father Tremor Anxiety Paternal Aunt Lung cancer Social History Smoking/Tobacco Use Status: Current every day Tobacco Type: cigarettes Years smoked: 30 Tobacco: How many years used: 20 Smoking risk assessment performed?: Yes Alcohol Intake: never Drug use: Never Substance use type: does not use Housing: apartment Current gender identity: male Do you feel safe at home: Yes Do you feel safe in your relationship?: Yes Time Spent with Patient Time Spent with Patient: 70-84 minutes4 Time was spent: preparing to see the patient(eg.review tests), obtaining and/or reviewing separately otained hiistory, ordering medications,tests, procedures, referring, communicating with other health rn wound care, indepentently interpreting results and counseling the patient
--- NOTE | 2025-08-07 15:57 | PDOC.CMDIS ---
Date of service: 08/07/25 Time of Service: 15:57 LACE Index Scoring Tool Questions: Length of Stay (in days): 2 Was the patient admitted via the E.D.?: Yes E.D. Visits: 3 Answers: Total Score: 8 Risk of Readmission: Low Risk Care Management Discharge Plan Reason for Hospitalization: Septic Bursitis Discharge Plan: Satish will be discharged home today with no new services. It is recommended he follow up with his community providers, surgical team, and discharge plan of care. He will transport home via private vehicle. Patient/Family Education Needs: Review of discharge instructions, activity, limitations, and plan of care. Discuss ask me three.
== END 2025-08-07 16:18 | disposition home or self-care (01) | DRG 501 ==
LOC: ER 14:47 → MS 15:11
PROVIDERS: Student in an Organized Health Care Education/Training Program; Admitting Provider Family Medicine; Emergency Provider Physician Assistant; PCP Family Medicine; Responsible Provider Nurse Practitioner Family; Visit Provider Family Medicine
PROC: 0MT30ZZ Resection of Right Elbow Bursa and Ligament, Open Approach (ICD-10-PCS; CPT 24105; principal; 2025-08-06 12:00)
DX: M71.121 Other infective bursitis, right elbow (principal); F11.20 Opioid dependence, uncomplicated; F41.9 Anxiety disorder, unspecified; K21.9 Gastro-esophageal reflux disease without esophagitis; I10 Essential (primary) hypertension; B95.61 Methicillin susceptible Staphylococcus aureus infection as the cause of diseases classified elsewhere; Z96.651 Presence of right artificial knee joint; Z79.899 Other long term (current) drug therapy
CPT/HCPCS: 24105; 00123; 36415; 80053; 85652; 87040; 87077; 87798; 96374; 99285; 73080; 80202; 83605; 83735; 84550; 85025; 86140; 86618; 87070; 87075; 87186; 87205; 99222; 99231; 99239; J0665; J1171; J2003; J2250; J2371; J2405; J2543; J2704; J3373